=== PATIENT | female | born 1990 | race Caucasian/White ===

== ENCOUNTER 2017-08-06 08:30 | Emergency (ER) | payer SELFPAY ==
--- NOTE | 2017-08-06 10:32 | ER Document Report ---
ED General - General Mode of Arrival: Ambulatory Information source: Patient TRAVEL OUTSIDE OF THE [place] IN LAST 30 DAYS: No - General Chief Complaint: Shortness Of Breath Stated Complaint: BREATHING PROBLEMS Time Seen by Provider: 08/06/17 10:17 Notes: Patient is a 27 year old female with a history of pneumonia and bronchitis reports to the emergency department complaining of cough with yellow sputum, wheezing, and shortness of breath. Patient states she feels like she has pneumonia again due to her having pneumonia 3x and bronchitis 1x within the last year. Patient also complains of her lungs "burning" and her ribs "aching". (SHREYA BENITES) - Related Data Allergies/Adverse Reactions: No Known Allergies Allergy (Verified 08/06/17 08:32) Past Medical History - General Information source: Patient - Social History Smoking Status: Unknown if Ever Smoked Chew tobacco use (# tins/day): No Frequency of alcohol use: Occasional Drug Abuse: None Family History: Reviewed & Not Pertinent Patient has suicidal ideation: No Patient has homicidal ideation: No Pulmonary Medical History: Reports: Hx Bronchitis, Hx Pneumonia Renal/ Medical History: Denies: Hx Peritoneal Dialysis Past Surgical History: Reports: Hx Section. Denies: Hx Hysterectomy Review of Systems - Review of Systems Constitutional: No symptoms reported EENT: No symptoms reported Cardiovascular: No symptoms reported Respiratory: See HPI, Cough, Short of breath, Sputum Gastrointestinal: No symptoms reported Genitourinary: No symptoms reported Female Genitourinary: No symptoms reported Musculoskeletal: No symptoms reported Skin: No symptoms reported Hematologic/Lymphatic: No symptoms reported Neurological/Psychological: No symptoms reported -: Yes All other systems reviewed and negative Physical Exam - General General appearance: Appears well, Alert In distress: None - HEENT Head: Normocephalic, Atraumatic Pupils: PERRL - Respiratory Respiratory status: No respiratory distress Chest status: Nontender Breath sounds: Wheezing - end expiratory wheezing - Cardiovascular Rhythm: Regular Heart sounds: Normal auscultation Murmur: No Friction rub: No Gallop: None auscultated - Abdominal Inspection: Normal Distension: No distension Bowel sounds: Normal Tenderness: Nontender - Back Back: Normal - Extremities General upper extremity: Normal ROM General lower extremity: Normal ROM - Neurological Neuro grossly intact: Yes Cognition: Normal Orientation: AAOx4 Krypton Coma Scale Eye Opening: Spontaneous Janett Coma Scale Verbal: Oriented Krypton Coma Scale Motor: Obeys Commands Janett Coma Scale Total: 15 Speech: Normal - Psychological Associated symptoms: Normal affect, Normal mood - Skin Skin Temperature: Warm Skin Moisture: Dry Skin Color: Normal - Vital signs Vitals: Temp Pulse Resp BP Pulse Ox 98.6 F 90 18 126/83 H 97 08/06/17 08:37 08/06/17 08:37 08/06/17 08:37 08/06/17 08:37 08/06/17 08:37 Course - Re-evaluation Re-evalutation: 08/06/17 11:04 Patient found to have right lower lobe consolidation consistent with pneumonia. Will be placed on 5 days of Levaquin and provided albuterol puffer. Patient vitals stable no hypoxia or tachypnea. Will provide community care outpatient follow-up. Instructed patient return to the emergency department if any worsening of symptoms. (CLYDE SEYMOUR) - Vital Signs Vital signs: Temp Pulse Resp BP Pulse Ox 98.3 F 81 20 114/72 95 08/06/17 11:42 08/06/17 11:42 08/06/17 11:42 08/06/17 11:42 08/06/17 11:42 Discharge - Discharge Clinical Impression: Pneumonia Qualifiers: Pneumonia type: due to unspecified organism Laterality: right Lung location: lower lobe of lung Qualified Code(s): J18.1 - Lobar pneumonia, unspecified organism Disposition: HOME, SELF-CARE Instructions: Pneumonia ([facility]) Additional Instructions: Please take medications as instructed. Follow-up with community care in the next 2-3 days for reevaluation or sooner in the emergency department if symptoms are worsening. Please use albuterol puffer provided 2 puffs every 4 hours as needed Prescriptions: Levofloxacin [Levaquin 750 mg Tablet] 750 mg PO DAILY #5 tablet Forms: Return to Work Scribe Attestation: 08/07/17 23:08 I personally performed the services described documentation, reviewed and edited the documentation which was dictated to describe my presence, and it accurately records my words and actions. (CLYDE SEYMOUR) Scribe Documentation - Scribe Written by Scribe:: Destiny Chaudhry, 08/06/2017 10:45 acting as scribe for :: Tej
--- NOTE | 2017-08-06 10:50 | RADIOLOGY REPORT (SQ) ---
EXAM DESCRIPTION: CHEST PA/LAT COMPLETED DATE/TIME: 08/06/2017 10:34 am REASON FOR STUDY: cough/congestion COMPARISON: None. EXAM PARAMETERS: NUMBER OF VIEWS: two views TECHNIQUE: Digital Frontal and Lateral radiographic views of the chest acquired. RADIATION DOSE: NA LIMITATIONS: none FINDINGS: LUNGS AND PLEURA: Patchy airspace disease in the medial right lower lobe, atelectasis vers us pneumonia No left-sided focal infiltrates. No pleural effusion or pneumothorax MEDIASTINUM AND HILAR STRUCTURES: No masses or contour abnormalities. HEART AND VASCULAR STRUCTURES: Heart normal size. No evidence for failure. BONES: No acute findings. HARDWARE: None in the chest. OTHER: No other significant finding. IMPRESSION: Airspace disease in the medial right lower lobe, atelectasis versus pneumonia TECHNICAL DOCUMENTATION: JOB ID: [id number] [employer]- All Rights Reserved
[2017-08-06] MEDS ORDERED: ALBUTEROL SULFATE HFA (90 MCG/PUFF) 200 PUFF/8.5 GM MDI IH ONE (11:04)
[2017-08-06 11:43] VITALS: BP 114/72
== END 2017-08-06 11:43 | disposition home or self-care (01) ==
LOC: ER 08:30
DX: J18.1 Lobar pneumonia, unspecified organism (principal); R06.02 Shortness of breath; R05 Cough
CPT/HCPCS: 99284; 71046; J3490

== ENCOUNTER 2017-09-19 12:28 | Emergency (ER) | payer SELFPAY ==
[2017-09-19] MEDS ORDERED: ACETAMINOPHEN 325 MG TABLET PO ONE (12:50)
[2017-09-19] MEDS ORDERED: IPRATROPIUM/ALBUTEROL 0.5-2.5 MG/3 ML AMPUL NEB ONE (12:51)
[2017-09-19] MEDS ORDERED: KETOROLAC TROMETHAMINE 60 MG/2 ML SDV IM ONE (12:51)
--- NOTE | 2017-09-19 12:54 | ER Document Report ---
ED General - General Chief Complaint: Headache Stated Complaint: HEADACHE,VOMITING,WHEEZING Time Seen by Provider: 09/19/17 12:45 Mode of Arrival: Ambulatory Information source: Patient Notes: 27-year-old female history of asthma who states she gets pneumonia every 3-4 months presents with complaints of fever chills body aches headache wheezing productive of brown sputum. Patient notes symptoms have been going on for 3-4 days denies any diarrhea admits nausea or vomiting. Denies any sick contacts TRAVEL OUTSIDE OF THE [place] IN LAST 30 DAYS: No - HPI Onset: Other Onset/Duration: Persistent Quality of pain: Achy Severity: Mild Pain Level: 1 Associated symptoms: Body/muscle aches, Chills, Productive cough, Fever, Nausea , Vomiting, Shortness of breath, Sweating Exacerbated by: Denies Relieved by: Denies Similar symptoms previously: Yes Recently seen / treated by doctor: No - Related Data Allergies/Adverse Reactions: No Known Allergies Allergy (Verified 09/19/17 12:43) Past Medical History - Social History Smoking Status: Never Smoker Cigarette use (# per day): No Chew tobacco use (# tins/day): No Smoking Education Provided: No Frequency of alcohol use: Occasional Drug Abuse: None Family History: Reviewed & Not Pertinent Patient has suicidal ideation: No Patient has homicidal ideation: No Pulmonary Medical History: Reports: Hx Bronchitis, Hx Pneumonia Renal/ Medical History: Denies: Hx Peritoneal Dialysis Past Surgical History: Reports: Hx Section. Denies: Hx Hysterectomy Review of Systems - Review of Systems Notes: REVIEW OF SYSTEMS: CONSTITUTIONAL : Admits to fevers chills EENT: Denies eye, ear, throat, or mouth pain or symptoms. Denies nasal or sinus congestion or discharge. Denies throat, tongue, or mouth swelling or difficulty swallowing. CARDIOVASCULAR: Denies chest pain. Denies palpitations or racing or irregular heart beat. Denies ankle edema. RESPIRATORY: Admits to wheezing shortness breath. GASTROINTESTINAL: Admits to nausea vomiting GENITOURINARY: Denies difficulty urinating, painful urination, burning, frequency, blood in urine, or discharge. FEMALE GENITOURINARY: Denies vaginal bleeding, heavy or abnormal periods, irregular periods. Denies vaginal discharge or odor. MUSCULOSKELETAL: Admits to body aches SKIN: Denies rash, lesions or sores. HEMATOLOGIC : Denies easy bruising or bleeding. LYMPHATIC: Denies swollen, enlarged glands. NEUROLOGICAL: Denies confusion or altered mental status. Denies passing out or loss of consciousness. Denies dizziness or lightheadedness. Denies headache. Denies weakness or paralysis or loss of use of either side. Denies problems with gait or speech. Denies sensory loss, numbness, or tingling. Denies seizures. PSYCHIATRIC: Denies anxiety or stress. Denies depression, suicidal ideation, or homicidal ideation. ALL OTHER SYSTEMS REVIEWED AND NEGATIVE. PHYSICAL EXAMINATION: GENERAL: Well-appearing, well-nourished and in no acute distress. Febrile HEAD: Atraumatic, normocephalic. EYES: Pupils equal round and reactive to light, extraocular movements intact, conjunctiva are normal. ENT: Nares patent, oropharynx clear without exudates. Moist mucous membranes. NECK: Normal range of motion, supple without lymphadenopathy LUNGS: Faint end expiratory wheezing all throughout HEART: Regular rate and rhythm without murmurs ABDOMEN: Soft, nontender, nondistended abdomen. No guarding, no rebound. No masses appreciated. Female : deferred Musculoskeletal: Normal range of motion, no pitting or edema. No cyanosis. NEUROLOGICAL: Cranial nerves grossly intact. Normal speech, normal gait. Normal sensory, motor exams PSYCH: Normal mood, normal affect. SKIN: Warm, Dry, normal turgor, no rashes or lesions noted. Dictation was performed using [employer] voice recognition software Physical Exam - Vital signs Vitals: Temp Pulse Resp BP Pulse Ox 100.5 F H 109 H 16 135/87 H 94 09/19/17 12:35 09/19/17 12:35 09/19/17 12:35 09/19/17 12:35 09/19/17 12:35 Course - Re-evaluation Re-evalutation: 09/19/17 12:54 Patient has probable viral syndrome versus pneumonia, no signs of angitis full range of motion of neck no meningeal signs noted 09/19/17 15:58 Pneumonia was noted right lower lobe, similar to previous pneumonia as well, I will treat her with antibiotics given that she is febrile mildly tachycardic upon arrival after breathing treatment she notes she feels much better I will write for an inhaler for her for home. Otherwise patient looks well is in no distress Patient is noted to be tachycardic on discharge after breathing treatments were given After performing a Medical Screening Examination, I estimate there is LOW risk for ACUTE CORONARY SYNDROME, PULMONARY EMBOLI, RESPIRATORY FAILURE, SEPSIS OR MENINGITIS, thus I consider the discharge disposition reasonable. I have reevaluated this patient multiple times and no significant life threatening changes are noted. The patient and I have discussed the diagnosis and risks, and we agree with discharging home with close follow-up. We also discussed returning to the Emergency Department immediately if new or worsening symptoms occur. We have discussed the symptoms which are most concerning (e.g., changing or worsening pain, trouble swallowing or breathing, neck stiffness, fever) that necessitate immediate return. - Vital Signs Vital signs: Temp Pulse Resp BP Pulse Ox 99.8 F 109 H 19 133/71 H 100 09/19/17 13:48 09/19/17 13:48 09/19/17 13:48 09/19/17 13:48 09/19/17 13:48 - Diagnostic Test Radiology reviewed: Image reviewed, Reports reviewed - Right lower lobe pneumonia Discharge - Discharge Clinical Impression: RLL pneumonia Qualifiers: Pneumonia type: due to unspecified organism Qualified Code(s): J18.1 - Lobar pneumonia, unspecified organism Asthma exacerbation Qualifiers: Asthma severity: mild Asthma persistence: intermittent Qualified Code(s): J45.21 - Mild intermittent asthma with (acute) exacerbation Condition: Stable Disposition: HOME, SELF-CARE Instructions: Pneumonia ([facility]) Prescriptions: Albuterol Sulfate [Proair HFA Inhalation Aerosol 8.5 gm MDI] 2 puff IH Q4H PRN # 1 mdi PRN Reason: Doxycycline Hyclate 100 mg PO BID #14 capsule Forms: Return to Work Referrals: DAINA AKERS MD [ACTIVE STAFF] - Follow up tomorrow
--- NOTE | 2017-09-19 13:25 | RADIOLOGY REPORT (SQ) ---
EXAM DESCRIPTION: CHEST PA/LAT COMPLETED DATE/TIME: 09/19/2017 1:07 pm REASON FOR STUDY: fever cough , wheezing asthma COMPARISON: 08/06/2017 EXAM PARAMETERS: NUMBER OF VIEWS: two views TECHNIQUE: Digital Frontal and Lateral radiographic views of the chest acquired. RADIATION DOSE: NA LIMITATIONS: none FINDINGS: LUNGS AND PLEURA: There is increased opacification in the medial aspect the right lower lo be compared to the earlier study. MEDIASTINUM AND HILAR STRUCTURES: No masses or contour abnormalities. HEART AND VASCULAR STRUCTURES: Heart normal size. No evidence for failure. BONES: No acute findings. HARDWARE: None in the chest. OTHER: No other significant finding. IMPRESSION: Right lower lobe pneumonia. TECHNICAL DOCUMENTATION: JOB ID: [id number] [employer]- All Rights Reserved Reading location - IP/workstation name: [email or web address]
[2017-09-19 13:50] VITALS: BP 133/71
== END 2017-09-19 13:48 | disposition home or self-care (01) ==
LOC: ER 12:28
DX: J18.1 Lobar pneumonia, unspecified organism (principal); J45.21 Mild intermittent asthma with (acute) exacerbation; R51 Headache; R11.2 Nausea with vomiting, unspecified; R50.9 Fever, unspecified
CPT/HCPCS: 94640; 99284; 96372; 71046; J1885; J7620

== ENCOUNTER 2017-09-24 14:35 | Emergency (ER) | payer SELFPAY ==
[2017-09-24] MEDS ORDERED: IPRATROPIUM/ALBUTEROL 0.5-2.5 MG/3 ML AMPUL NEB ONE (15:08)
[2017-09-24] MEDS ORDERED: ONDANSETRON 4 MG TAB.RAPDIS PO ONE (15:08)
--- NOTE | 2017-09-24 15:09 | ER Document Report ---
ED Medical Screen (RME) - General Chief Complaint: Vomiting Stated Complaint: VOMITING Time Seen by Provider: 09/24/17 15:01 Mode of Arrival: Ambulatory Information source: Patient Notes: This is a 27-year-old female with a history of bronchitis, recent diagnosis of pneumonia presents to the emergency room with some nausea and vomiting and persistent cough. She has been on doxycycline for the past 4-5 days. TRAVEL OUTSIDE OF THE [place] IN LAST 30 DAYS: No - HPI Onset: Just prior to arrival Onset/Duration: Gradual Quality of pain: No pain Severity: None Pain Level: Denies Associated Symptoms: Chills, Cough (nonproductive), Fever Exacerbated by: Denies Relieved by: Denies Similar symptoms previously: Yes Recently seen / treated by doctor: Yes - Related Data Smoking: Cigarettes Frequency of alcohol use: None Drug Abuse: None Allergies/Adverse Reactions: No Known Allergies Allergy (Verified 09/24/17 14:37) Past Medical History - General Information source: Patient - Social History Cigarette use (# per day): No Chew tobacco use (# tins/day): No Frequency of alcohol use: None Drug Abuse: None Lives with: Family Family history: None - Medical History Medical History: Negative Pulmonary Medical History: Reports: Hx Bronchitis, Hx Pneumonia - chronic Renal/ Medical History: Denies: Hx Peritoneal Dialysis Past Surgical History: Reports: Hx Section. Denies: Hx Hysterectomy Review of Systems - Review of Systems Constitutional: Chills, Fever EENT: No symptoms reported Cardiovascular: No symptoms reported Respiratory: See HPI Gastrointestinal: No symptoms reported Genitourinary: No symptoms reported Female Genitourinary: No symptoms reported Musculoskeletal: No symptoms reported Skin: No symptoms reported Hematologic/Lymphatic: No symptoms reported Neurological/Psychological: No symptoms reported Physical Exam - Vital signs Vitals: Temp Pulse Resp BP Pulse Ox 99.0 F 97 16 139/97 H 95 09/24/17 14:43 09/24/17 14:43 09/24/17 14:43 09/24/17 14:43 09/24/17 14:43 Notes: Physical exam: GENERAL: 27-year-old female, alert and oriented 3, no acute distress HEAD: Atraumatic, normocephalic. EYES: Pupils equal round and reactive to light, extraocular movements intact, sclera anicteric, conjunctiva are normal. ENT: TMs normal, nares patent, oropharynx clear without exudates. Moist mucous membranes. NECK: Normal range of motion, supple without obvious mass or JVD. LUNGS: Breath sounds clear to auscultation bilaterally and equal. No wheezes rales or rhonchi. HEART: Regular rate and rhythm without murmurs, rubs or gallops. ABDOMEN: Soft, normoactive bowel sounds. No tenderness to palpation. No guarding, no rebound. No masses appreciated. EXTREMITIES: Normal range of motion, no pitting or edema. No clubbing or cyanosis. NEUROLOGICAL: Cranial nerves II through XII grossly intact. Normal speech, moving all extremities. PSYCH: Normal mood, normal affect. SKIN: Warm, Dry, normal turgor, no rashes or lesions noted. Course - Re-evaluation Re-evalutation: 09/24/17 16:58 Note: Patient was given a nebulizer treatment and feels very comfortable at this time. Her oxygen saturation at this time is 97% on room air and she has no difficulty with ambulating around the ER. The chest x-ray shows no worsening and I explained to her that it may take a while before it clears but she should have a follow-up chest x-ray. I have advised her to continue the antibiotic prescribed (doxycycline), take Zofran for nausea and Mucinex. I have advised [facility] and I have given her the contact number. - Vital Signs Vital signs: Temp Pulse Resp BP Pulse Ox 98.7 F 88 20 130/87 H 96 09/24/17 16:53 09/24/17 16:53 09/24/17 16:53 09/24/17 16:53 09/24/17 16:53 - Diagnostic Test Radiology reviewed: Image reviewed, Reports reviewed - Chest x-ray shows residual pneumonia (no worse). Doctor's Discharge - Discharge Clinical Impression: Pneumonia resolving Condition: Stable Disposition: HOME, SELF-CARE Additional Instructions: Thank you for choosing [facility] for your care. The examination and treatment you have received in the Emergency Department today has been rendered on an emergency basis only and is not intended to be a substitute for complete medical care. You should contact your doctor as it is important that she/he examine you for any new or remaining problems. If given a copy of any lab tests or radiology reports, please bring them with you when you see your physician. If your problem worsens or new symptoms appear and you are unable to arrange prompt follow-up care, return to the Emergency Department. Specific signs to look out for: Worsening shortness of breath, worsening cough, persistent fever or any concerns or getting worse Any other instructions: Rest, drink plenty of fluids, take Zofran for nausea. Take Mucinex (guaifenesin) daily for the next few days to loosen up the secretions. Continue the antibiotics as prescribed. Continue the inhalers as needed. Primary Care Doctor's affiliated with [facility]: If you do not have a primary care doctor or you are unable to get an appointment during that time, you can try one of the doctor's below. These are internal medicine doctor's that have admitting priveledges to the hospital ( they will see you both in the office as well as in this hospital if you are ever hospitalized here). follow-up at the [facility] which is a free clinic. [address], [place] [address] Forms: Return to Work
--- NOTE | 2017-09-24 15:40 | RADIOLOGY REPORT (SQ) ---
EXAM DESCRIPTION: CHEST PA/LAT COMPLETED DATE/TIME: 09/24/2017 3:30 pm REASON FOR STUDY: cough COMPARISON: 09/19/2017 EXAM PARAMETERS: NUMBER OF VIEWS: two views TECHNIQUE: Digital Frontal and Lateral radiographic views of the chest acquired. RADIATION DOSE: NA LIMITATIONS: none FINDINGS: LUNGS AND PLEURA: Once again a right lower lobe pneumonia is present. There is slight imp rovement since the earlier study, but there is residual infiltrate. MEDIASTINUM AND HILAR STRUCTURES: No masses or contour abnormalities. HEART AND VASCULAR STRUCTURES: Heart normal size. No evidence for failure. BONES: No acute findings. HARDWARE: None in the chest. OTHER: No other significant finding. IMPRESSION: Residual right lower lobe pneumonia. TECHNICAL DOCUMENTATION: JOB ID: [id number] [employer]- All Rights Reserved Reading location - IP/workstation name: [email or web address]
[2017-09-24] MEDS ORDERED: ONDANSETRON ODT 4 MG TAB (6 TAB/ER DISP) PO PRN (16:48)
[2017-09-24 16:56] VITALS: BP 130/87
== END 2017-09-24 16:55 | disposition home or self-care (01) ==
LOC: ER 14:35
DX: J18.9 Pneumonia, unspecified organism (principal); R11.2 Nausea with vomiting, unspecified; R05 Cough; R50.9 Fever, unspecified
CPT/HCPCS: 94640; 99284; 71046; S0119; J7620

== ENCOUNTER 2017-10-03 03:35 | Inpatient (IN) | payer SELFPAY ==
[2017-10-03] MEDS ORDERED: ONDANSETRON HCL INJ/PF 4 MG/2 ML SDV IV ONE (04:24)
[2017-10-03] MEDS ORDERED: NORMAL SALINE 1000 ML 1,000 ML IV ONE (04:24)
[2017-10-03] MEDS ORDERED: KETOROLAC TROMETHAMINE INJ/PF 30 MG/1 ML SDV IV ONE (04:24)
--- NOTE | 2017-10-03 04:28 | ER Document Report ---
ED General - General Chief Complaint: Rib Pain Stated Complaint: COUGH Time Seen by Provider: 10/03/17 04:13 Notes: Patient is a 27-year-old female that comes emergency department for chief complaint of cough, chills, congestion, and she is also developed nausea and vomiting over the past 2 days. She states she is coughing up greenish yellowish sputum. She states that last Saturday she had completed a course of antibiotics (doxycycline), she states that she has asthma, she states that she gets repeated pneumonia and keeps getting over the past 3 years. This is her third visit this month for pneumonia. She states she completed antibiotic before the doxycycline but she cannot remember what it is exactly. She denies smoking, she denies any daily medications, she denies any surgeries except for C -section. LMP within the past month. TRAVEL OUTSIDE OF THE [place] IN LAST 30 DAYS: No - Related Data Allergies/Adverse Reactions: No Known Allergies Allergy (Verified 10/03/17 03:36) Past Medical History - General Information source: Patient - Social History Smoking Status: Never Smoker Frequency of alcohol use: None Drug Abuse: None Lives with: Family Family History: Reviewed & Not Pertinent Pulmonary Medical History: Reports: Hx Bronchitis, Hx Pneumonia Renal/ Medical History: Denies: Hx Peritoneal Dialysis Past Surgical History: Reports: Hx Section. Denies: Hx Hysterectomy - Immunizations Immunizations up to date: Yes Hx Diphtheria, Pertussis, Tetanus Vaccination: Yes Review of Systems - Review of Systems Constitutional: No symptoms reported EENT: No symptoms reported Cardiovascular: No symptoms reported Respiratory: No symptoms reported Gastrointestinal: No symptoms reported Genitourinary: No symptoms reported Female Genitourinary: No symptoms reported Musculoskeletal: No symptoms reported Skin: No symptoms reported Hematologic/Lymphatic: No symptoms reported Neurological/Psychological: No symptoms reported Physical Exam - Vital signs Vitals: Temp Pulse Resp BP Pulse Ox 98.6 F 110 H 20 129/73 H 97 10/03/17 03:42 10/03/17 03:42 10/03/17 03:42 10/03/17 03:42 10/03/17 03:42 - General General appearance: Appears well, Anxious In distress: None - HEENT Head: Normocephalic, Atraumatic Eyes: Normal Conjunctiva: Normal Extraocular movements intact: Yes Eyelashes: Normal Pupils: PERRL Mouth/Lips: Normal Mucous membranes: Normal Pharynx: Normal Neck: Normal - Respiratory Respiratory status: No respiratory distress Breath sounds: Nonproductive cough - Occasional mild nonproductive cough - Cardiovascular Rhythm: Regular, Tachycardia Heart sounds: Normal auscultation, S1 appreciated, S2 appreciated - Abdominal Tenderness: Tender - Mild generalized abdominal tenderness, nonspecific, no guarding - Back Back: Tender - Tenderness over the right general CVA area, otherwise unremarkable back exam with no midline tenderness or saddle anesthesia - Extremities General upper extremity: Normal inspection, Nontender, Normal ROM, Normal strength General lower extremity: Normal inspection, Nontender, Normal ROM, Normal strength. No: Edema - Neurological Neuro grossly intact: Yes Cognition: Normal Orientation: AAOx4 [place] Coma Scale Eye Opening: Spontaneous [place] Coma Scale Verbal: Oriented [place] Coma Scale Motor: Obeys Commands Jan[place] Coma Scale Total: 15 Speech: Normal Motor strength normal: LUE, RUE, LLE, RLE Sensory: Normal - Psychological Associated symptoms: Normal affect, Normal mood - Skin Skin Temperature: Warm Skin Moisture: Dry Skin Color: Normal Course - Re-evaluation Re-evalutation: Patient is in no distress on exam. Very occasional mild nonproductive cough, clear lungs, no tachypnea. She is borderline tachycardic on my exam. She will speak breathing very heavily and quietly and then suddenly breathe normally and talking loudly for an extended duration. Records reviewed and patient also has had repeated visits this month for ongoing pneumonia. She has had 4 x-rays this year with the same right sided pneumonia. She has most recently completed a course of doxycycline. CBC shows leukocytosis with elevation of neutrophils but no bandemia. Blood cultures have been sent. Chemistry unremarkable. test negative. Urine with some white blood cells but no nitrites, contaminated sample. Abdomen is soft and benign on exam. 10/03/17 CAT scan does show and confirm right middle lobe pneumonia. Patient has completed Levaquin and doxycycline outpatient. She has failed outpatient management. Discussed with patient, recommendation at this time will be to be admitted to the hospital for IV antibiotics, obtain blood cultures, obtain sputum cultures. Patient is very agreeable with this plan. She is clinically nontoxic, her vital signs are stable. I spoke with Dr. Casas, patient will be admitted to the medical floor. - Vital Signs Vital signs: Temp Pulse Resp BP Pulse Ox 98.6 F 110 H 20 114/73 97 03/29/18 03:42 10/03/17 03:42 10/03/17 07:01 10/03/17 07:00 10/03/17 07:01 - Laboratory Result Diagrams: 10/03/17 05:20 10/03/17 05:20 Laboratory results interpreted by me: 10/03/17 10/03/17 05:20 06:18 WBC 20.9 H RDW 14.8 H Abs Neuts (Manual) 15.9 H Urine Protein 30 H Ur Leukocyte Esterase LARGE H Discharge - Discharge Clinical Impression: Productive cough Pneumonia Qualifiers: Pneumonia type: due to unspecified organism Laterality: right Lung location: middle lobe of lung Qualified Code(s): J18.1 - Lobar pneumonia, unspecified organism Leukocytosis Qualifiers: Leukocytosis type: unspecified Qualified Code(s): D72.829 - Elevated white blood cell count, unspecified Condition: Stable Disposition: ADMITTED INPATIENT Admitting Provider: Hospitalist Unit Admitted: Medical Floor
--- NOTE | 2017-10-03 04:50 | RADIOLOGY REPORT (SQ) ---
EXAM DESCRIPTION: CHEST PA/LAT CLINICAL HISTORY: 27 years, Female, productive cough COMPARISON: 3..18. 08/06/2017, report only. NUMBER OF VIEWS: 2 LIMITATIONS: None. FINDINGS: Moderate patchiness of the right lower lobe similar to appearance on prior exam, 09/24/2017 accounting for technical variance, normal cardiac silhouette, and intact bony thorax. IMPRESSION: Moderate right lower lobar pneumonia. Consider CR surveillance including at 7-12 weeks following initiation of clinically warranted therapy.
[2017-10-03 05:47] LABS: HEMATOCRIT 38.8 % (36.0-47.0); HEMOGLOBIN 12.9 g/dL (12.0-15.5); MEAN CORPUSCULAR HEMOGLOBIN 27.4 pg (27.0-33.4); MEAN CORPUSCULAR HGB CONC 33.3 g/dL (32.0-36.0); MEAN CORPUSCULAR VOLUME 82 fl (80-97); PLATELET COUNT 441 10^3/uL (150-450); RED BLOOD COUNT 4.72 10^6/uL (3.72-5.28); RED CELL DISTRIBUTION WIDTH 14.8 % (11.5-14.0); WHITE BLOOD COUNT 20.9 10^3/uL (4.0-10.5)
[2017-10-03 05:58] LABS: ALANINE AMINOTRANSFERASE 27 U/L (9-52); ALKALINE PHOSPHATASE 96 U/L (38-126); ANION GAP 12 (5-19); ASPARTATE AMINO TRANSFERASE 16 U/L (14-36); BILIRUBIN,DIRECT 0.2 mg/dL (0.0-0.4); BILIRUBIN,TOTAL 0.4 mg/dL (0.2-1.3); BLOOD UREA NITROGEN 11 mg/dL (7-20); CALCIUM 9.5 mg/dL (8.4-10.2); CARBON DIOXIDE 24 mmol/L (22-30); CHLORIDE 102 mmol/L (98-107); GLUCOSE 105 mg/dL (75-110); POTASSIUM 4.5 mmol/L (3.6-5.0); SODIUM 137.5 mmol/L (137-145); TOTAL PROTEIN 7.4 g/dL (6.3-8.2)
[2017-10-03 06:27] LABS: ABSOLUTE LYMPHOCYTES# (MANUAL) 3.6 10^3/uL (0.5-4.7); ABSOLUTE MONOCYTES # (MANUAL) 1.3 10^3/uL (0.1-1.4); ABSOLUTE NEUTROPHILS# (MANUAL) 15.9 10^3/uL (1.7-8.2); BASOPHILS % (MANUAL) 0 % (0-2); EOSINOPHILS % (MANUAL) 1 % (0-6); LYMPHOCYTES % (MANUAL) 17 % (13-45); MONOCYTES % (MANUAL) 6 % (3-13); SEGMENTED NEUTROPHILS % (MAN) 76 % (42-78); TOTAL CELLS COUNTED 100
[2017-10-03 06:29] LABS: ANISOCYTOSIS SLIGHT; PLATELET COMMENT ADEQUATE; POLYCHROMASIA SLIGHT; TOXIC GRANULATION 2+
[2017-10-03 06:51] LABS: APPEARANCE,URINE CLEAR; BILIRUBIN,URINE NEGATIVE (NEGATIVE); COLOR,URINE YELLOW; GLUCOSE, URINE NEGATIVE (NEGATIVE); KETONES,URINE NEGATIVE (NEGATIVE); PROTEIN,URINE 30 mg/dL (NEGATIVE); URINE SPECIFIC GRAVITY 1.021
[2017-10-03 06:52] LABS: LEUKOCYTE ESTERASE,URINE LARGE (NEGATIVE); NITRITE,URINE NEGATIVE (NEGATIVE); UROBILINOGEN,URINE NEGATIVE mg/dL (<2.0)
--- NOTE | 2017-10-03 07:18 | RADIOLOGY REPORT (SQ) ---
EXAM DESCRIPTION: CT CHEST WITH CLINICAL HISTORY: 27 years Female, evaluate persistent area of possible pneumonia COMPARISON: CR, same day, 09/24/2017. TECHNIQUE: IV contrast contrast. Coronal and sagittal reformat. This exam was performed according to our departmental dose-optimization program, which includes automated exposure control, adjustment of the mA and/or kV according to patient size and/or use of iterative reconstruction technique. FINDINGS: Moderate consolidation of the right lower lobe. Mild increased reticular markings of the right upper lobe. Minimal lingular streakiness. Mild mediastinal lymphadenopathy includes a 1.1 cm pretracheal lymph node. Nondisplaced desiccation. Inferior neck, axillae, mediastinum, lungs, airway, lymphatics, heart, vasculature, upper abdomen, and musculoskeleton appear otherwise unremarkable. Impression: Right lower lobar pneumonia. Recommend CR/CT surveillance including at 7-12 weeks following initiation of clinically warranted therapy.
[2017-10-03] MEDS ORDERED: CEFEPIME 2 GM/D5W RTU 2 GM/50 ML RTUPB IV ONE (07:21)
[2017-10-03] MEDS ORDERED: VANCOMYCIN HCL INJ 1000 MG VIAL IV ONE (07:30)
[2017-10-03] MEDS ORDERED: HYDRALAZINE HCL INJ/PF 20 MG/1 ML SDV IV PRN (08:38)
[2017-10-03] MEDS ORDERED: CEFEPIME 2 GM/D5W RTU 2 GM/50 ML RTUPB IV SCH (10:00)
[2017-10-03] MEDS: MORPHINE SULFATE 10 MG/ML INJ IV PRN ×3 (13:13→21:28)
[2017-10-03] MEDS ORDERED: INFLUENZA ADLT QUAD (36MOS+) 2017-18 VAC 0.5 ML SYR IM PRN (15:04)
[2017-10-03] MEDS: VANCOMYCIN HCL 1,500 MG in DEXTROSE 5%-WATER 250 ML IV SCH ×2 (15:39→20:25)
[2017-10-03] MEDS: IPRATROPIUM/ALBUTEROL 0.5-2.5 MG/3 ML AMPUL NEB PRN ×2 (17:23→22:41)
[2017-10-03] MEDS: ACETAMINOPHEN 325 MG TABLET PO PRN (20:26)
[2017-10-03] MEDS: NORMAL SALINE 1000 ML 1,000 ML IV PRN (20:27)
[2017-10-03] MEDS: CEFEPIME 2 GM/D5W RTU 2 GM/50 ML RTUPB IV SCH (22:11)
[2017-10-04] MEDS: VANCOMYCIN HCL 1,500 MG in DEXTROSE 5%-WATER 250 ML IV SCH ×2 (03:29→09:48)
[2017-10-04 07:09] LABS: HEMATOCRIT 35.3 % (36.0-47.0); HEMOGLOBIN 11.8 g/dL (12.0-15.5); MEAN CORPUSCULAR HEMOGLOBIN 27.4 pg (27.0-33.4); MEAN CORPUSCULAR HGB CONC 33.4 g/dL (32.0-36.0); MEAN CORPUSCULAR VOLUME 82 fl (80-97); PLATELET COUNT 402 10^3/uL (150-450); RED BLOOD COUNT 4.31 10^6/uL (3.72-5.28); RED CELL DISTRIBUTION WIDTH 14.3 % (11.5-14.0); WHITE BLOOD COUNT 20.7 10^3/uL (4.0-10.5)
[2017-10-04 07:17] LABS: ALBUMIN 3.4 g/dL (3.5-5.0); ANION GAP 11 (5-19); BLOOD UREA NITROGEN 9 mg/dL (7-20); CALCIUM 9.3 mg/dL (8.4-10.2); CARBON DIOXIDE 22 mmol/L (22-30); CHLORIDE 103 mmol/L (98-107); GLUCOSE 131 mg/dL (75-110); POTASSIUM 4.2 mmol/L (3.6-5.0); SODIUM 136.3 mmol/L (137-145)
[2017-10-04] MEDS: ACETAMINOPHEN 325 MG TABLET PO PRN (07:42)
[2017-10-04] MEDS ORDERED: VANCOMYCIN HCL INJ 1000 MG VIAL IV SCH (10:00)
[2017-10-04 10:46] LABS: VANCOMYCIN,TROUGH 9.2 ug/mL (5.0-20.0)
[2017-10-04] MEDS: IPRATROPIUM/ALBUTEROL 0.5-2.5 MG/3 ML AMPUL NEB PRN ×2 (11:32→23:18)
[2017-10-04] MEDS: CEFEPIME 2 GM/D5W RTU 2 GM/50 ML RTUPB IV SCH ×2 (11:53→21:04)
[2017-10-04] MEDS ORDERED: LINEZOLID 600 MG RTU 300 ML IV ONE (12:00)
[2017-10-04] MEDS: OXYCODONE HCL IR 5 MG TABLET PO PRN ×2 (17:03→23:06)
[2017-10-04] MEDS: LEVOFLOXACIN 750 MG/D5W RTU 750 MG/150 ML RTUPB IV SCH (17:13)
--- NOTE | 2017-10-04 20:52 | PDOC PROGRESS REPORT ---
Subjective Progress Note for:: 10/04/17 Subjective:: 27-year-old with reoccurring pneumonia or unresolving pneumonia in the outpatient setting. Continued elevated leukocytosis. Will add levaquin IV. Agree with pharmacy and changing vancomycin to linezolid given patient's inability to achieve an appropriate vancomycin level. Clinically she has significantly improved. Sitting up in bed and conversant. Breathing comfortably on room air. However given her history of chronic recurring pneumonias in her past will continue IV treatment at present. Anticipate patient will benefit from multiple days of IV antibiotics before transitioning to p.o. therapy. Reason For Visit: RIGHT LOWER LOBE PNEUMONIA Physical Exam Vital Signs: Temp Pulse Resp BP Pulse Ox 98.3 F 105 H 16 129/80 H 96 10/04/17 14:52 10/04/17 14:52 10/04/17 14:52 10/04/17 14:52 10/04/17 14:52 Intake & Output 10/03/17 10/04/17 10/05/17 06:59 06:59 06:59 Intake Total 1000 2940 Balance 1000 2940 Weight 155.3 kg General appearance: PRESENT: no acute distress, cooperative Head exam: PRESENT: atraumatic, normocephalic Eye exam: PRESENT: EOMI, PERRLA Mouth exam: PRESENT: moist, neck supple Neck exam: PRESENT: full ROM. ABSENT: JVD, thyromegaly Respiratory exam: PRESENT: crackles, decreased breath sounds. ABSENT: accessory muscle use, rhonchi, wheezes Pulses: PRESENT: normal radial pulses, normal dorsalis pedis pul Vascular exam: PRESENT: normal capillary refill. ABSENT: pallor GI/Abdominal exam: PRESENT: soft. ABSENT: ascites, distended, firm, mass, rigid Extremities exam: ABSENT: calf tenderness, joint swelling Musculoskeletal exam: PRESENT: ambulatory, full ROM Neurological exam: PRESENT: alert, oriented to person, oriented to place, oriented to time, oriented to situation, CN II-XII grossly intact Psychiatric exam: ABSENT: agitated, anxious, manic Focused psych exam: ABSENT: delusional, paranoid Skin exam: ABSENT: abrasion, cyanosis, dry Results Laboratory Results: 10/04/17 06:38 10/04/17 06:38 10/04/17 10/04/17 06:38 06:38 WBC 20.7 H RBC 4.31 Hgb 11.8 L Hct 35.3 L MCV 82 MCH 27.4 MCHC 33.4 RDW 14.3 H Plt Count 402 Sodium 136.3 L Potassium 4.2 Chloride 103 Carbon Dioxide 22 Anion Gap 11 BUN 9 Creatinine 0.56 Est GFR ( Amer) > 60 Est GFR (Non-Af Amer) > 60 Glucose 131 H Calcium 9.3 Phosphorus 4.0 Albumin 3.4 L Impressions: Chest X-Ray 10/03/17 04:25 IMPRESSION: Moderate right lower lobar pneumonia. Consider CR surveillance including at 7-12 weeks following initiation of clinically warranted therapy. Assessment & Plan - Diagnosis (1) Pneumonia Qualifiers: Pneumonia type: due to unspecified organism Laterality: right Lung location: middle lobe of lung Qualified Code(s): J18.1 - Lobar pneumonia, unspecified organism Is this a current diagnosis for this admission?: Yes Plan: No growth on cultures at present. Poor vancomycin level, agree with pharmacy to change to linezolid continue cefepime, add levaquin. persisting high WBC, no loose stooling. (2) Asthma Is this a current diagnosis for this admission?: Yes Plan: Continue as needed neb therapy for asthma. No significant wheezing appreciated on examination today. (3) Leukocytosis Qualifiers: Leukocytosis type: unspecified Qualified Code(s): D72.829 - Elevated white blood cell count, unspecified Is this a current diagnosis for this admission?: Yes Plan: persistent leukocytosis today. Continue IV antibiotics as previously stated.
[2017-10-04] MEDS: NORMAL SALINE 1000 ML 1,000 ML IV PRN (20:56)
[2017-10-04] MEDS: LINEZOLID 600 MG RTU 300 ML IV SCH (21:50)
[2017-10-05] MEDS: MORPHINE SULFATE 10 MG/ML INJ IV PRN (00:37)
[2017-10-05 07:00] LABS: HEMATOCRIT 34.9 % (36.0-47.0); HEMOGLOBIN 11.4 g/dL (12.0-15.5); MEAN CORPUSCULAR HEMOGLOBIN 26.9 pg (27.0-33.4); MEAN CORPUSCULAR HGB CONC 32.8 g/dL (32.0-36.0); MEAN CORPUSCULAR VOLUME 82 fl (80-97); PLATELET COUNT 417 10^3/uL (150-450); RED BLOOD COUNT 4.25 10^6/uL (3.72-5.28); RED CELL DISTRIBUTION WIDTH 14.9 % (11.5-14.0); WHITE BLOOD COUNT 18.9 10^3/uL (4.0-10.5)
[2017-10-05 07:19] LABS: ALBUMIN 3.3 g/dL (3.5-5.0); ANION GAP 10 (5-19); BLOOD UREA NITROGEN 9 mg/dL (7-20); CALCIUM 8.8 mg/dL (8.4-10.2); CARBON DIOXIDE 23 mmol/L (22-30); CHLORIDE 102 mmol/L (98-107); GLUCOSE 131 mg/dL (75-110); PHOSPHORUS 4.2 mg/dL (2.5-4.5); POTASSIUM 4.2 mmol/L (3.6-5.0); SODIUM 135.1 mmol/L (137-145)
[2017-10-05] MEDS: CEFEPIME 2 GM/D5W RTU 2 GM/50 ML RTUPB IV SCH ×2 (09:15→21:58)
[2017-10-05] MEDS: GUAIFENESIN SYRP 200 MG/10 ML UDC PO PRN (09:15)
[2017-10-05] MEDS: NORMAL SALINE 1000 ML 1,000 ML IV PRN (09:15)
[2017-10-05] MEDS: LINEZOLID 600 MG RTU 300 ML IV SCH ×2 (09:16→22:59)
[2017-10-05] MEDS: LEVOFLOXACIN 750 MG/D5W RTU 750 MG/150 ML RTUPB IV SCH (15:08)
--- NOTE | 2017-10-05 16:05 | PDOC PROGRESS REPORT ---
Subjective Progress Note for:: 10/05/17 Subjective:: 27-year-old female with history of multiple recent outpatient pneumonia treatment failures, and history of asthma. Patient with persistent leukocytosis and mild tachycardia. Continued on broad-spectrum antibiotics. Clinically she looks significantly improved. Would intentionally prolong her IV treatment to a minimum of 4 days given her significant history of poor outpatient performance on p.o. antibiotics and lack of recent recovery. Gram- positive cocci in clusters noted on sputum culture growth, further results pending. Reason For Visit: RIGHT LOWER LOBE PNEUMONIA Physical Exam Vital Signs: Temp Pulse Resp BP Pulse Ox 98.0 F 92 16 120/73 95 10/05/17 12:26 10/05/17 12:26 10/05/17 12:26 10/05/17 12:26 10/05/17 12:26 Intake & Output 10/04/17 10/05/17 10/06/17 06:59 06:59 06:59 Intake Total 1000 5140 1000 Balance 1000 5140 1000 Weight 155.3 kg 160.5 kg General appearance: PRESENT: no acute distress, cooperative, but appears confused Head exam: PRESENT: atraumatic, normocephalic Eye exam: PRESENT: EOMI, PERRLA Mouth exam: PRESENT: moist, neck supple Neck exam: PRESENT: full ROM. ABSENT: JVD, thyromegaly Respiratory exam: PRESENT: crackles, decreased breath sounds in lower right lobe. ABSENT: accessory muscle use, rhonchi, wheezes Pulses: PRESENT: normal radial pulses, normal dorsalis pedis pul Vascular exam: PRESENT: normal capillary refill. ABSENT: pallor GI/Abdominal exam: PRESENT: soft. ABSENT: ascites, distended, firm, mass, rigid Extremities exam: ABSENT: calf tenderness, joint swelling Musculoskeletal exam: PRESENT: ambulatory, full ROM Neurological exam: PRESENT: alert, oriented to person, oriented to place, oriented to time, oriented to situation, CN II-XII grossly intact Psychiatric exam: ABSENT: agitated, anxious, manic Focused psych exam: ABSENT: delusional, paranoid Skin exam: ABSENT: abrasion, cyanosis, dry Results Laboratory Results: 10/05/17 06:47 10/05/17 06:47 10/05/17 10/05/17 06:47 06:47 WBC 18.9 H RBC 4.25 Hgb 11.4 L Hct 34.9 L MCV 82 MCH 26.9 L MCHC 32.8 RDW 14.9 H Plt Count 417 Sodium 135.1 L Potassium 4.2 Chloride 102 Carbon Dioxide 23 Anion Gap 10 BUN 9 Creatinine 0.54 Est GFR ( Amer) > 60 Est GFR (Non-Af Amer) > 60 Glucose 131 H Calcium 8.8 Phosphorus 4.2 Albumin 3.3 L Impressions: Chest X-Ray 10/03/17 04:25 IMPRESSION: Moderate right lower lobar pneumonia. Consider CR surveillance including at 7-12 weeks following initiation of clinically warranted therapy. Assessment & Plan - Diagnosis (1) Pneumonia Qualifiers: Pneumonia type: due to unspecified organism Laterality: right Lung location: middle lobe of lung Qualified Code(s): J18.1 - Lobar pneumonia, unspecified organism Is this a current diagnosis for this admission?: Yes Plan: Continue broad-spectrum coverage including cefepime, vancomycin, Levaquin. Just antibiotics with culture results. Cultures 2 no growth. Sputum culture growing gram-positive cocci in clusters. Likely patient has improved. Is now on room air. (2) Asthma Is this a current diagnosis for this admission?: Yes Plan: No significant wheezing on exam. Continue Duoneb therapy access q4h prn. appears comfortable on room air. (3) Leukocytosis Qualifiers: Leukocytosis type: unspecified Qualified Code(s): D72.829 - Elevated white blood cell count, unspecified Is this a current diagnosis for this admission?: Yes Plan: Mild improvement. Continue broad spectrum antibiotics. no steroids at present. Monitor culture results. (4) Super obesity Is this a current diagnosis for this admission?: Yes Plan: Has BMI > 50, encouraged to have caloric reduction - Time Time Spent with patient: 15-24 minutes - Inpatient Certification Based on my medical assessment, after consideration of the patient's comorbidities, presenting symptoms, or acuity I expect that the services needed warrant INPATIENT care.: Yes Medical Necessity: Failure to Improve With Outpatient Therapy, Need for IV Antibiotics, Risk of Complication if Not Cared For in Hospital
[2017-10-05] MEDS: ACETAMINOPHEN 325 MG TABLET PO PRN (18:05)
[2017-10-06] MEDS: MORPHINE SULFATE 10 MG/ML INJ IV PRN (03:10)
[2017-10-06] MEDS: NORMAL SALINE 1000 ML 1,000 ML IV PRN (03:11)
[2017-10-06 06:15] VITALS: BP 131/62
[2017-10-06] MEDS: ONDANSETRON HCL INJ/PF 4 MG/2 ML SDV IV PRN ×2 (06:30→09:32)
[2017-10-06 07:12] LABS: ABSOLUTE BASOPHILS # (AUTO) 0.1 10^3/uL (0.0-0.2); ABSOLUTE EOSINOPHILS # (AUTO) 0.3 10^3/uL (0.0-0.6); ABSOLUTE LYMPHOCYTES (AUTO) 2.7 10^3/uL (0.5-4.7); ABSOLUTE MONOCYTES (AUTO) 1.3 10^3/uL (0.1-1.4); ABSOLUTE NEUT (AUTO) 9.9 10^3/uL (1.7-8.2); HEMATOCRIT 33.9 % (36.0-47.0); HEMOGLOBIN 11.1 g/dL (12.0-15.5); LYMPHOCYTES % (AUTO) 19.1 % (13-45); MEAN CORPUSCULAR HGB CONC 32.7 g/dL (32.0-36.0); MEAN CORPUSCULAR VOLUME 82 fl (80-97); MONOCYTES % (AUTO) 9.3 % (3-13); PLATELET COUNT 415 10^3/uL (150-450); RED BLOOD COUNT 4.11 10^6/uL (3.72-5.28); RED CELL DISTRIBUTION WIDTH 14.4 % (11.5-14.0); SEGMENTED NEUTROPHILS % (AUTO) 68.6 % (42-78); TOTAL CELLS COUNTED % (AUTO) 100 %; WHITE BLOOD COUNT 14.4 10^3/uL (4.0-10.5)
[2017-10-06] MEDS: IPRATROPIUM/ALBUTEROL 0.5-2.5 MG/3 ML AMPUL NEB PRN (07:26)
[2017-10-06 07:31] LABS: ALBUMIN 3.2 g/dL (3.5-5.0); ANION GAP 9 (5-19); BLOOD UREA NITROGEN 9 mg/dL (7-20); CALCIUM 8.7 mg/dL (8.4-10.2); CARBON DIOXIDE 24 mmol/L (22-30); CHLORIDE 106 mmol/L (98-107); GLUCOSE 112 mg/dL (75-110); PHOSPHORUS 4.3 mg/dL (2.5-4.5); POTASSIUM 4.1 mmol/L (3.6-5.0); SODIUM 139.1 mmol/L (137-145)
[2017-10-06] MEDS: GUAIFENESIN SYRP 200 MG/10 ML UDC PO PRN (09:31)
[2017-10-06] MEDS: CEFEPIME 2 GM/D5W RTU 2 GM/50 ML RTUPB IV SCH (09:32)
[2017-10-06] MEDS: OXYCODONE HCL IR 5 MG TABLET PO PRN (09:32)
[2017-10-06] MEDS: LINEZOLID 600 MG RTU 300 ML IV SCH (10:06)
--- NOTE | 2017-10-06 12:59 | PDOC DISCHARGE SUMMARY ---
General - Admit/Disc Date/PCP Admission Date/Primary Care Provider: 10/03/17 07:36 NO LOCALMD Discharge Date: 10/06/17 - Discharge Diagnosis (1) CAP (community acquired pneumonia) Is this a current diagnosis for this admission?: Yes Summary: Failed outpatient antibiotic regimen prior to admission. Received broad- spectrum coverage including cefepime, vancomycin, Levaquin. - Micro: Blood cultures 2 no growth. Sputum culture growing gram-positive cocci in clusters (speciation pending) - At discharge, clinically improved. Not requiring supplemental O2 Outpatient plan - Continue Levaquin 750mg daily * 5 days (10/06-10/09) - Establish care with PCP, would be reasonable to recheck CXR in 3-4 weeks to assess for PNA resolution (2) Obesity Is this a current diagnosis for this admission?: Yes Summary: Encouraged healthy diet and exercise (3) Asthma Is this a current diagnosis for this admission?: Yes Summary: Per patient's request, provided script for Albuterol INH prn - Additional Information Discharge Diet: As Tolerated Discharge Activity: Activity As Tolerated, Balance Activity w/Rest, Slowly Increase Activity Prescriptions: Albuterol Sulfate [Ventolin Hfa 8 gm Mdi (1 Mdi/ER Disp)] 60 puff IH ASDIR PRN # 1 inhaler PRN Reason: Shortness Of Breath Levofloxacin [Levaquin 750 mg Tablet] 750 mg PO DAILY #5 tab Home Medications: Albuterol Sulfate [Ventolin Hfa 8 gm Mdi (1 Mdi/ER Disp)] 60 puff IH ASDIR PRN # 1 inhaler 10/06/17 Levofloxacin [Levaquin 750 mg Tablet] 750 mg PO DAILY #5 tab 10/06/17 History of Present Illness Patient complains of: Cough, chills, congestion History of Present Illness: PHIL GALVIN is a 27 year old female who presented to the ED with cough, chills, congestion, and she is also developed nausea and vomiting over the past 2 days. She states she is coughing up greenish yellowish sputum. She states that last Saturday she had completed a course of antibiotics (doxycycline), she states that she has asthma, she states that she gets repeated pneumonia and keeps getting over the past 3 years. This is her third visit this month for pneumonia. She states she completed antibiotic before the doxycycline but she cannot remember the name. Physical Exam Vital Signs: Temp Pulse Resp BP Pulse Ox 98.1 F 87 16 131/62 H 96 10/06/17 09:41 10/06/17 09:41 10/06/17 09:41 10/06/17 09:41 10/06/17 09:41 Intake & Output 10/05/17 10/06/17 10/07/17 06:59 06:59 06:59 Intake Total 5140 2500 350 Balance 5140 2500 350 Weight 160.5 kg 0 g General appearance: PRESENT: no acute distress, morbidly obese Mouth exam: PRESENT: moist Respiratory exam: PRESENT: unlabored. ABSENT: tachypnea, wheezes Cardiovascular exam: PRESENT: RRR GI/Abdominal exam: PRESENT: soft, other. ABSENT: tenderness Neurological exam: PRESENT: alert, awake, CN II-XII grossly intact Psychiatric exam: PRESENT: appropriate affect Skin exam: PRESENT: warm Results Laboratory Results: 10/06/17 06:55 10/06/17 06:55 10/06/17 10/06/17 06:55 06:55 WBC 14.4 H RBC 4.11 Hgb 11.1 L Hct 33.9 L MCV 82 MCH 27.0 MCHC 32.7 RDW 14.4 H Plt Count 415 Seg Neutrophils % 68.6 Lymphocytes % 19.1 Monocytes % 9.3 Eosinophils % 2.0 Basophils % 1.0 Absolute Neutrophils 9.9 H Absolute Lymphocytes 2.7 Absolute Monocytes 1.3 Absolute Eosinophils 0.3 Absolute Basophils 0.1 Sodium 139.1 Potassium 4.1 Chloride 106 Carbon Dioxide 24 Anion Gap 9 BUN 9 Creatinine 0.55 Est GFR ( Amer) > 60 Est GFR (Non-Af Amer) > 60 Glucose 112 H Calcium 8.7 Phosphorus 4.3 Albumin 3.2 L Impressions: Chest X-Ray 10/03/17 04:25 IMPRESSION: Moderate right lower lobar pneumonia. Consider CR surveillance including at 7-12 weeks following initiation of clinically warranted therapy. Qualifiers - * PATEINT BEING DISCHARGED WITH ANY OF THE FOLLOWING DIAGNOSIS?: No
== END 2017-10-06 12:50 | disposition home or self-care (01) | DRG 194 ==
LOC: ER 03:35 → EH 07:36 → 4N 15:04 → 2N 23:30
PROVIDERS: ADMIT Internal Medicine; ATTEND Internal Medicine
PROC: 3E0234Z Introduction of Serum, Toxoid and Vaccine into Muscle, Percutaneous Approach (ICD-10-PCS; principal; 2017-10-06)
DX: J18.9 Pneumonia, unspecified organism (principal); Z68.43 Body mass index [BMI] 50.0-59.9, adult; J45.909 Unspecified asthma, uncomplicated; D72.829 Elevated white blood cell count, unspecified; R07.81 Pleurodynia; E66.9 Obesity, unspecified; Z23 Encounter for immunization
CPT/HCPCS: 36415; 71046; 71260; 80053; 80069; 80202; 81001; 83605; 84703; 85025; 85027; 87040; 87070; 87077; 87086; 87186; 87205; 90686; 94640; 96361; 96374; 96375; 99285; J0692; J1885; J1956; J2020; J2270; J2405; J3370; J7030; J7060; J7620

== ENCOUNTER 2017-11-07 11:01 | Emergency (ER) | payer MEDICAID ==
[2017-11-07 11:14] VITALS: BP 139/86
[2017-11-07] MEDS ORDERED: IPRATROPIUM/ALBUTEROL 0.5-2.5 MG/3 ML AMPUL NEB ONE (11:22)
[2017-11-07] MEDS ORDERED: DEXAMETHASONE SOD PHOS INJ 10 MG/1 ML VIAL IM ONE (11:22)
--- NOTE | 2017-11-07 11:25 | ER Document Report ---
HPI - HPI Pain Level: 3 Notes: Patient is a 27-year-old female with a history of asthma and recurrent pneumonia who presents to the ED complaining of a continued dry semi-productive cough and request for an x-ray as she was told to have another chest x-ray performed after her last episode with pneumonia about a month ago. Patient states that she does have inhalers that she uses for her asthma on occasion. She has been eating and drinking without difficulties. She is urinating normally and having normal bowel movements. She has no other concerns or complaints at this time. Denies any headache, fever, URI, sore throat, chest pain, palpitations, syncope, shortness of breath, dyspnea, abdominal pain, nausea/vomiting/diarrhea, urinary retention, dysuria, hematuria, or rash. - ROS Systems Reviewed and Negative: Yes All other systems reviewed and negative - REPRODUCTIVE Reproductive: DENIES: : Past Medical History - Social History Smoking Status: Never Smoker Family History: Other Pulmonary Medical History: Reports: Hx Asthma, Hx Bronchitis, Hx Pneumonia Renal/ Medical History: Denies: Hx Peritoneal Dialysis Past Surgical History: Reports: Hx Section. Denies: Hx Hysterectomy - Immunizations Immunizations up to date: Yes Hx Diphtheria, Pertussis, Tetanus Vaccination: Yes Vertical Provider Document - CONSTITUTIONAL Agree With Documented VS: Yes Notes: PHYSICAL EXAMINATION: GENERAL: Well-appearing, well-nourished and in no acute distress. A&Ox4. Answers questions appropriately. Moves comfortably w/o notable distress HEAD: Atraumatic, normocephalic. EYES: Pupils equal round and reactive to light, extraocular movements intact, sclera anicteric, conjunctiva are normal. ENT: EAC clear b/l. TM's intact b/l without erythema, fluid, or perforation. Nares patent and with clear discharge. oropharynx no erythema without exudates. No tonsilar hypertrophy without erythema or exudate. No palatine shift. Uvula midline. No tongue protrusion. No drooling, hoarseness, or airway compromise. Moist mucous membranes. No sinus tenderness. NECK: Normal range of motion, supple without lymphadenopathy. No rigidity/ meningismus. LUNGS: scant wheeze base b/l. No retractions HEART: Regular rate and rhythm without murmurs, rubs, gallops. NEUROLOGICAL: Normal speech, normal gait. Normal sensory, motor exams PSYCH: Normal mood, normal affect. SKIN: Warm, Dry, normal turgor, no rashes or lesions noted. - INFECTION CONTROL TRAVEL OUTSIDE OF THE [place] IN LAST 30 DAYS: No Course - Re-evaluation Re-evalutation: 11/07/17 11:50 Patient is an afebrile, well-hydrated, 27-year-old female who presents to the ED with pneumonia RLL. Vitals are acceptable. PE is otherwise unremarkable. See CXR result. Patient has no significant tachycardia, tachypnea, or hypoxia. Patient was given DuoNeb and Decadron today. She is tolerating p.o. without any difficulties. I will send her home with a prescription for Tessalon Perles and levaquin. Low suspicion for any respiratory compromise, severe dehydration , sepsis, meningitis, or other systemic emergent condition at this time. Patient is aware that her condition can change from initial presentation and she needs to monitor symptoms closely and seek medical attention for any acute changes. Recommend conservative measures for symptoms. Recheck with your PCM in 3-5 days. Return to the ED with any worsening/concerning symptoms otherwise as reviewed in discharge. Patient is in agreement. - Vital Signs Vital signs: Temp Pulse Resp BP Pulse Ox 98.7 F 80 18 139/86 H 97 11/07/17 11:11 11/07/17 11:11 11/07/17 11:11 11/07/17 11:11 11/07/17 11:11 Discharge - Discharge Clinical Impression: Pneumonia Qualifiers: Pneumonia type: due to unspecified organism Laterality: right Lung location: lower lobe of lung Qualified Code(s): J18.1 - Lobar pneumonia, unspecified organism Condition: Stable Disposition: HOME, SELF-CARE Instructions: Pneumonia ([facility]), Levofloxacin Additional Instructions: Maintain adequate fluid intake Take meds as directed tylenol/ibuprofen as needed over the counter cold medication as needed for symptoms Humidified air may help Wash your hands regularly Wear a mask when coughing F/u: with your PCM in 3-5 days for a recheck Schedule a consult with pulmonology Return to the ED with any fever, worsening pain, chest pain, palpitations, syncope, worsening FOR[place], neck pain/stiffness, shortness of breath, wheezing, drooling, trouble swallowing/breathing, abdominal pain, n/v/d, rash, or worsening/concerning symptoms otherwise. Prescriptions: Benzonatate [Tessalon Perle 100 mg Capsule] 100 mg PO Q8HP PRN #15 cap PRN Reason: Levofloxacin [Levaquin 750 mg Tablet] 750 mg PO DAILY #5 tablet Forms: Elevated Blood Pressure, Return to Work Referrals: DAINA AKERS MD [ACTIVE STAFF] - Follow up in 1 week
--- NOTE | 2017-11-07 12:12 | RADIOLOGY REPORT (SQ) ---
EXAM DESCRIPTION: CHEST 2 VIEWS COMPLETED DATE/TIME: 11/07/2017 11:53 am REASON FOR STUDY: cough COMPARISON: 10/03/2017 EXAM PARAMETERS: NUMBER OF VIEWS: two views TECHNIQUE: Digital Frontal and Lateral radiographic views of the chest acquired. RADIATION DOSE: NA LIMITATIONS: none FINDINGS: LUNGS AND PLEURA: There is some increased density in the right lung base medially which co uld represent a residual or recurrent pneumonic infiltrate. Remaining lung scales are clear. MEDIASTINUM AND HILAR STRUCTURES: No masses or contour abnormalities. HEART AND VASCULAR STRUCTURES: Heart normal size. No evidence for failure. BONES: No acute findings. HARDWARE: None in the chest. OTHER: No other significant finding. IMPRESSION: There is some increased density in the right lung base medially which could represent a residual or recurrent pneumonic infiltrate. Remaining lung scales are clear. TECHNICAL DOCUMENTATION: JOB ID: [id number] [employer]- All Rights Reserved Reading location - IP/workstation name: [email or web address]
== END 2017-11-07 12:22 | disposition home or self-care (01) ==
LOC: ER 11:01
DX: J18.1 Lobar pneumonia, unspecified organism (principal)
CPT/HCPCS: 94640; 99283; 96372; 81025; 71046; J1100; J7620

== ENCOUNTER 2017-11-08 09:02 | Inpatient (IN) | payer MEDICAID ==
--- NOTE | 2017-11-08 09:35 | ER Document Report ---
ED Medical Screen (RME) - General Chief Complaint: Nausea/Vomiting/Diarrhea Stated Complaint: DIARRHEA Time Seen by Provider: 11/08/17 09:26 Notes: 27-year-old female patient with asthma seen in emergency room early yesterday morning with dry cough. Chest x-ray compared to a pneumonia in-patient admission CXR on 10/03/2017 suggested recurrent infiltrate versus persistent infiltrate versus scarring. She was given DuoNeb, Decadron, prescription for Tessalon Perles and Levaquin. She reports about 2 PM yesterday after leaving the hospital she developed nausea vomiting diarrhea which has persisted since then. She reports that Her up all night long due to the diarrhea. There is no fever. She complains of pain in her right ribs and right back around her kidney area. I have greeted and performed a rapid initial assessment of this patient. A comprehensive ED assessment and evaluation of the patient, analysis of test results and completion of the medical decision making process will be conducted by additional ED providers. TRAVEL OUTSIDE OF THE [place] IN LAST 30 DAYS: No - Related Data Allergies/Adverse Reactions: No Known Allergies Allergy (Verified 11/08/17 09:25) Past Medical History - Social History Chew tobacco use (# tins/day): No Frequency of alcohol use: None Drug Abuse: None Family history: None Pulmonary Medical History: Reports: Hx Asthma, Hx Bronchitis, Hx Pneumonia Renal/ Medical History: Denies: Hx Peritoneal Dialysis Past Surgical History: Reports: Hx Section. Denies: Hx Hysterectomy - Immunizations Immunizations up to date: Yes Hx Diphtheria, Pertussis, Tetanus Vaccination: Yes History of Influenza Vaccine for 04/2017 - 09/2017 Season: No Physical Exam - Vital signs Vitals: Temp Pulse BP Pulse Ox 98.0 F 106 H 131/90 H 97 11/08/17 09:10 11/08/17 09:10 11/08/17 09:10 11/08/17 09:10 Course - Vital Signs Vital signs: Temp Pulse Resp BP Pulse Ox 98.0 F 106 H 131/90 H 97 11/08/17 09:10 11/08/17 09:10 11/08/17 09:10 11/08/17 09:10
--- NOTE | 2017-11-08 09:58 | RADIOLOGY REPORT (SQ) ---
EXAM DESCRIPTION: CHEST 2 VIEWS COMPLETED DATE/TIME: 11/08/2017 9:42 am REASON FOR STUDY: cough, R rib and back pain, ? new vs persistnt inf COMPARISON: 11/07/2017. TECHNIQUE: Frontal and lateral radiographic views of the chest acquired. NUMBER OF VIEWS: Two view. LIMITATIONS: None. FINDINGS: LUNGS AND PLEURA: Worsening aeration in the lung bases, likely predominantly subsegmental atelectasis. Lateral view shows mild increased density over the spine, however. Likely recurrent ba silar pneumonia. MEDIASTINUM AND HILAR STRUCTURES: No masses or contour abnormalities. HEART AND VASCULAR STRUCTURES: Heart normal size. No evidence for failure. BONES: No acute findings. HARDWARE: None in the chest. OTHER: No other significant finding. IMPRESSION: Recurrent/progressive right basilar pneumonia. TECHNICAL DOCUMENTATION: JOB ID: [id number] [email or web address]- All Rights Reserved Reading location - IP/workstation name: [email or web address]
[2017-11-08] MEDS ORDERED: PIPERACILLIN/TAZOBACTAM 3.375 GM VIAL IV ONE (10:08)
[2017-11-08] MEDS ORDERED: VANCOMYCIN HCL INJ 1000 MG VIAL IV ONE (10:08)
[2017-11-08] MEDS ORDERED: CEFEPIME 1 GM/D5W RTU 1 GM/50 ML RTUPB IV ONE (10:09)
--- NOTE | 2017-11-08 10:49 | ER Document Report ---
ED General - General Chief Complaint: Nausea/Vomiting/Diarrhea Stated Complaint: DIARRHEA Time Seen by Provider: 11/08/17 09:26 Mode of Arrival: Ambulatory Information source: Patient Notes: 27-year-old female presents with complaints of right lower lobe pneumonia of 3 years duration intermittently. Patient has she has been on multiple dose of antibiotics was seen here yesterday noted to have progressive pneumonia, was started on levofloxacin and cough suppressant and notes that she has been having nausea vomiting diarrhea TRAVEL OUTSIDE OF THE [place] IN LAST 30 DAYS: No - HPI Onset: Other Onset/Duration: Persistent Quality of pain: Achy Severity: Mild Pain Level: 1 Associated symptoms: Productive cough, Diarrhea, Nausea, Vomiting Exacerbated by: Denies Relieved by: Denies Similar symptoms previously: No Recently seen / treated by doctor: No - Related Data Allergies/Adverse Reactions: No Known Allergies Allergy (Verified 11/08/17 09:25) Past Medical History - Social History Smoking Status: Never Smoker Cigarette use (# per day): No Chew tobacco use (# tins/day): No Smoking Education Provided: No Frequency of alcohol use: None Drug Abuse: None Family History: Other Patient has suicidal ideation: No Patient has homicidal ideation: No Pulmonary Medical History: Reports: Hx Asthma, Hx Bronchitis, Hx Pneumonia Renal/ Medical History: Denies: Hx Peritoneal Dialysis Past Surgical History: Reports: Hx Section. Denies: Hx Hysterectomy - Immunizations Immunizations up to date: Yes Hx Diphtheria, Pertussis, Tetanus Vaccination: Yes Review of Systems - Review of Systems Notes: REVIEW OF SYSTEMS: CONSTITUTIONAL : Denies fever, chills, or sweats. Denies recent illness. EENT: Denies eye, ear, throat, or mouth pain or symptoms. Denies nasal or sinus congestion or discharge. Denies throat, tongue, or mouth swelling or difficulty swallowing. CARDIOVASCULAR: Denies chest pain. Denies palpitations or racing or irregular heart beat. Denies ankle edema. RESPIRATORY: Admits productive cough GASTROINTESTINAL: Admits to epigastric pain abdominal cramping diarrhea nausea vomiting GENITOURINARY: Denies difficulty urinating, painful urination, burning, frequency, blood in urine, or discharge. FEMALE GENITOURINARY: Denies vaginal bleeding, heavy or abnormal periods, irregular periods. Denies vaginal discharge or odor. MUSCULOSKELETAL: Denies back or neck pain or stiffness. Denies joint pain or swelling. SKIN: Denies rash, lesions or sores. HEMATOLOGIC : Denies easy bruising or bleeding. LYMPHATIC: Denies swollen, enlarged glands. NEUROLOGICAL: Denies confusion or altered mental status. Denies passing out or loss of consciousness. Denies dizziness or lightheadedness. Denies headache. Denies weakness or paralysis or loss of use of either side. Denies problems with gait or speech. Denies sensory loss, numbness, or tingling. Denies seizures. PSYCHIATRIC: Denies anxiety or stress. Denies depression, suicidal ideation, or homicidal ideation. ALL OTHER SYSTEMS REVIEWED AND NEGATIVE. PHYSICAL EXAMINATION: GENERAL: Well-appearing, well-nourished and in no acute distress. HEAD: Atraumatic, normocephalic. EYES: Pupils equal round and reactive to light, extraocular movements intact, conjunctiva are normal. ENT: Nares patent, oropharynx clear without exudates. Moist mucous membranes. NECK: Normal range of motion, supple without lymphadenopathy LUNGS: Crackles right lower lobe HEART: Regular rate and rhythm without murmurs ABDOMEN: Soft, nontender, nondistended abdomen. No guarding, no rebound. No masses appreciated. Female : deferred Musculoskeletal: Normal range of motion, no pitting or edema. No cyanosis. NEUROLOGICAL: Cranial nerves grossly intact. Normal speech, normal gait. Normal sensory, motor exams PSYCH: Normal mood, normal affect. SKIN: Warm, Dry, normal turgor, no rashes or lesions noted. Dictation was performed using [employer] voice recognition software Physical Exam - Vital signs Vitals: Temp Pulse BP Pulse Ox 98.0 F 106 H 131/90 H 97 11/08/17 09:10 11/08/17 09:10 11/08/17 09:10 11/08/17 09:10 Course - Re-evaluation Re-evalutation: 11/08/17 10:49 Patient's presentation is quite concerning given this recurrent pneumonia over the past 3 years which has been documented times with imaging I will await lab results 11/08/17 19:12 Given the patient has continued pneumonia has a white count I will admit for IV antibiotics and pulmonology involvement - Vital Signs Vital signs: Temp Pulse Resp BP Pulse Ox 98.0 F 95 23 H 133/96 H 95 11/08/17 09:10 11/08/17 15:39 11/08/17 14:08 11/08/17 14:08 11/08/17 14:08 - Laboratory Result Diagrams: 11/08/17 11:29 11/08/17 11:29 Laboratory results interpreted by me: 11/08/17 11/08/17 11/08/17 10:45 11:29 11:29 WBC 16.3 H RDW 17.1 H Seg Neutrophils % 88.5 H Lymphocytes % 6.0 L Absolute Neutrophils 14.4 H Carbon Dioxide 21 L Glucose 150 H Urine Protein 30 H Discharge - Discharge Clinical Impression: Pneumonia Qualifiers: Pneumonia type: due to unspecified organism Laterality: right Lung location: lower lobe of lung Qualified Code(s): J18.1 - Lobar pneumonia, unspecified organism Nausea & vomiting Qualifiers: Vomiting type: unspecified Vomiting Intractability: non-intractable Qualified Code(s): R11.2 - Nausea with vomiting, unspecified Diarrhea Qualifiers: Diarrhea type: infectious Qualified Code(s): A09 - Infectious gastroenteritis and colitis, unspecified Condition: Stable Disposition: ADMITTED INPATIENT Admitting Provider: Hospitalist Unit Admitted: Telemetry
[2017-11-08 11:19] LABS: APPEARANCE,URINE SLIGHTLY-CLOUDY; BILIRUBIN,URINE NEGATIVE (NEGATIVE); COLOR,URINE YELLOW; GLUCOSE, URINE NEGATIVE (NEGATIVE); KETONES,URINE NEGATIVE (NEGATIVE); LEUKOCYTE ESTERASE,URINE NEGATIVE (NEGATIVE); NITRITE,URINE NEGATIVE (NEGATIVE); PROTEIN,URINE 30 mg/dL (NEGATIVE); URINE SPECIFIC GRAVITY 1.035; UROBILINOGEN,URINE NEGATIVE mg/dL (<2.0)
[2017-11-08 11:56] LABS: ABSOLUTE MONOCYTES (AUTO) 0.9 10^3/uL (0.1-1.4); ABSOLUTE NEUT (AUTO) 14.4 10^3/uL (1.7-8.2); BASOPHILS % (AUTO) 0.2 % (0-2); EOSINOPHILS % (AUTO) 0.1 % (0-6); MEAN CORPUSCULAR HEMOGLOBIN 27.5 pg (27.0-33.4); MEAN CORPUSCULAR HGB CONC 32.6 g/dL (32.0-36.0); MEAN CORPUSCULAR VOLUME 84 fl (80-97); MONOCYTES % (AUTO) 5.2 % (3-13); PLATELET COUNT 300 10^3/uL (150-450); RED BLOOD COUNT 5.11 10^6/uL (3.72-5.28); RED CELL DISTRIBUTION WIDTH 17.1 % (11.5-14.0); SEGMENTED NEUTROPHILS % (AUTO) 88.5 % (42-78); TOTAL CELLS COUNTED % (AUTO) 100 %; WHITE BLOOD COUNT 16.3 10^3/uL (4.0-10.5)
[2017-11-08 12:14] LABS: ALANINE AMINOTRANSFERASE 34 U/L (9-52); ALBUMIN 4.3 g/dL (3.5-5.0); ALKALINE PHOSPHATASE 101 U/L (38-126); ANION GAP 19 (5-19); ASPARTATE AMINO TRANSFERASE 19 U/L (14-36); BILIRUBIN,DIRECT 0.3 mg/dL (0.0-0.4); BILIRUBIN,TOTAL 0.5 mg/dL (0.2-1.3); BLOOD UREA NITROGEN 20 mg/dL (7-20); CALCIUM 9.4 mg/dL (8.4-10.2); CARBON DIOXIDE 21 mmol/L (22-30); CHLORIDE 104 mmol/L (98-107); GLUCOSE 150 mg/dL (75-110); SODIUM 144.4 mmol/L (137-145); TOTAL PROTEIN 7.9 g/dL (6.3-8.2)
[2017-11-08] MEDS ORDERED: GUAIFENESIN 600 MG TABLET.SA PO ONE (12:36)
[2017-11-08] MEDS ORDERED: LACTOBACILLUS ACIDOPHILUS 250 MG TAB PO ONE (12:37)
--- NOTE | 2017-11-08 13:55 | RADIOLOGY REPORT (SQ) ---
EXAM DESCRIPTION: CT CHEST WITH COMPLETED DATE/TIME: 11/08/2017 1:36 pm REASON FOR STUDY: FU PNA COMPARISON: 10/03/2017. TECHNIQUE: CT scan of the chest performed using helical scanning technique with dynamic intravenous contrast injection. Images reviewed with lung, soft tissue and bone windows. Reconstructed coronal and sagittal MPR images reviewed. All images stored on PACS. All CT scanners at this facility use dose modulation, iterative reconstruction, and/or weight based d osing when appropriate to reduce radiation dose to as low as reasonably achievable (ALARA). [facility]: Dose Right [facility]: CareDose [facility]: Dose Right [facility]: Teradose 4D [facility]: [place] CONTRAST TYPE AND DOSE: contrast/concentration: Isovue 370.00 mg/ml; Total Contrast Delivered: 80.0 ml; Total Saline Delivered: 35.1 ml RENAL FUNCTION: None required. The patient is less than 50 years old. RADIATION DOSE: CT Rad equipment meets quality standard of care and radiation dose reduction techniq ues were employed. CTDIvol: 21.1 mGy. DLP: 831 mGy-cm. . LIMITATIONS: None. FINDINGS: LUNGS AND PLEURA: Improvement in volume loss and airspace disease in the right lower lobe. However, there is a persistent ovoid lesion containing internal air-fluid levels now. This has an elongated appearance on coronal and sagittal reconstructions. Oligo cystic appearance. Up to 5 cm c raniocaudal by just under 4 cm transverse. There is adjacent endobronchial tissue, either mucous plu gging or small mass. HILAR AND MEDIASTINAL STRUCTURES: No identified masses or abnormal nodes. HEART AND VASCULAR STRUCTURES: No aneurysm or dissection. No central pulmonary emboli. No pericardi al effusion. HARDWARE: None in the chest. UPPER ABDOMEN: No significant findings. Limited exam. THYROID AND OTHER SOFT TISSUES: No masses. No adenopathy. BONES: No significant finding. OTHER: No other significant finding. IMPRESSION: Improved aeration right lower lobe, but there is a persistent underlying cystic lesion c ontaining fluid and gas. Adjacent material plugging the bronchial tree. While this may represent ca vitation of pneumonia, consider also underlying congenital pulmonary airway malformation. Differenti al would also include pulmonary sequestration and cystic bronchiectasis. Pulmonology referral for fu rther evaluation recommended. TECHNICAL DOCUMENTATION: JOB ID: [id number] Quality ID # [id number]: Final reports with documentation of one or more dose reduction techniques (e.g., Au tomated exposure control, adjustment of the mA and/or kV according to patient size, use of iterative reconstruction technique) 2010 [employer]- All Rights Reserved Reading location - IP/workstation name: [email or web address]
[2017-11-08] MEDS ORDERED: VANCOMYCIN HCL 1,000 MG in DEXTROSE 5%-WATER 250 ML IV ONE (14:00)
[2017-11-08] MEDS: LACTOBACILLUS ACIDOPHILUS 250 MG TAB PO SCH (17:49)
[2017-11-08] MEDS: PIPERACILLIN SODIUM/TAZOBACTAM 4.5 GM in NORMAL SALINE 100 ML IV SCH ×2 (17:50→23:35)
--- NOTE | 2017-11-08 19:24 | HISTORY AND PHYSICAL E ---
History and Physical NAME: PHIL GALVIN : 1990 AGE: 27Y ADMITTED: 11/08/2017 ROOM: 532 PRIMARY CARE PROVIDER: Not established. CHIEF COMPLAINT: Cough and diarrhea. HISTORY OF PRESENT ILLNESS: The patient is a 27-year-old female with a past medical history of recurrent pneumonias. The patient presented to the emergency department with a chief complaint of cough, sputum production, as well as diarrhea. The patient was apparently treated in the emergency department just yesterday, and was discharged on Levaquin and Tessalon Perles. The patient stated that she became quite nauseous after this. Had an episode of diarrhea; thus, came back to the emergency department for evaluation. The patient was admitted to the hospitalist service on 10/03/2017 through 10/06/2017. At that time, the patient was found to have a right lower leg pneumonia. The patient was admitted because she had failed outpatient management with doxycycline, and was discharged during that admission on Levaquin. The patient was recommended to come back to the hospital for followup imaging. The patient did, and was found to have a persistent pneumonia, and therefore yesterday, was sent out with Levaquin, which she did not tolerate. Stool studies obtained in the emergency department did not show any evidence of C. diff. The patient states that she has been having difficulty with recurrent pneumonia for about 3 years now. She has not seen Pulmonology for this; has not had bronchoscopy. Has only had CT imaging done at this facility. The patient is understandably concerned. At the time of presentation, the patient had a white count of 16.3, neutrophilic dominant at 88.5. The patient is noted to be afebrile. She is not tachycardic. Blood pressure is in acceptable range. Slightly tachypneic, but this did improve with O2, and the patient has been referred to the hospital for admission and management. PAST MEDICAL HISTORY: Remarkable for: 1. Childhood asthma. 2. Recurrent pneumonia. PAST SURGICAL HISTORY: Remarkable for: 1. . HOME MEDICATIONS: Included: 1. Levaquin 750 mg p.o. daily. 2. Tessalon Perles 100 mg p.o. q.8 hours p.r.n. 3. Ventolin HFA 2 puffs inhalation q.4 to 6 hours p.r.n. ALLERGIES: No known drug allergies. SOCIAL HISTORY: The patient currently resides at home. The patient is employed full-time as a licensed practical nurse. The patient's surrogate decision-maker at this time is her mother, Yolie, who can be reached at [phone]. The patient denies any alcohol use or illicit drug use. The patient has never smoked. FAMILY MEDICAL HISTORY: The patient's grandmother, interestingly, of a persistent pneumonia. The patient's mother is alive, without any medical problems. The patient's father is alive, with no medical problems. The patient does have siblings who are healthy. The patient does have a child who is healthy. The patient denies any family history of tuberculosis or chronic lung diseases. REVIEW OF SYSTEMS: CONSTITUTIONAL: The patient denies any fevers, chills. No dizziness. Denies any night sweats. No change of appetite. SKIN: The patient denies any diaphoresis. No rashing, bruising or itching. HEENT: Denies any vision or hearing loss. No nasal drainage. Does admit to ongoing sore throat, which has been a chronic issue for her, as well as headache. CVS: Does admit to right-sided chest pain that is pleuritic in nature. No edema, heart palpitations. Admits to dyspnea with exertion. RESPIRATORY: Has had a strong cough and producing some sputum. No hemoptysis. GI: Denies any abdominal pain, bloating, hematemesis, constipation, melena. No hematochezia. Does admit to nausea, vomiting and diarrhea. : Denies any hematuria, pyuria or dysuria. MUSCULOSKELETAL: Denies any acute or chronic joint pain. NEUROLOGICAL: No seizure, tremors of loss of consciousness. HEMATOLOGICAL: Denies any ayla bleeding, easy bruising. ENDOCRINE: Denies any recent weight changes. PSYCHIATRIC: Denies any suicidal or homicidal ideation. The rest of review of the other organ systems is negative. PHYSICAL EXAMINATION: GENERAL: On examination, the patient is a very pleasant 27-year-old female, who is awake, alert and oriented to person, place, time and situation. She is verbal, conversational, ambulatory. Does not appear to be in any acute distress. VITAL SIGNS: Temperature is 98.0, pulse 92, respirations 23, blood pressure is 133/96, oxygen saturation is 95% on room air. SKIN: Warm and dry. No rash. She is not diaphoretic. HEENT: Pupils equal, round, reactive to light and accommodation. Conjunctivae are pink. Sclerae are nonicteric. No mouth lesions. Tongue is midline. NECK: Supple. No JVD. No palpable lymphadenopathy or thyromegaly. CVS: Heart is regular. There is no murmur or rub. CHEST: Diminished, symmetrical, unlabored. ABDOMEN: Obese, soft, nontender, nondistended. BACK: No CVA tenderness or sacral edema. EXTREMITIES: No clubbing, cyanosis or edema, or peripheral signs of embolization. Plus 1 pedal pulses noted bilaterally. PSYCHIATRIC: Appropriate affect. Pleasant mood. DIAGNOSTICS: Lab values are as follows: Hematology obtained on 11/08/2017: WBCs are 16.3, hemoglobin is 40.0, hematocrit is 43.0, platelet count of 300,000. Chemistry obtained on 11/08/2017: Sodium is 144, potassium 4.0, chloride is 104, carbon dioxide is 21, BUN 20, creatinine 0.78. Glucose 150. Calcium is 9.4. Bilirubin is 0.5, AST 19, ALT is 34, alk phos 101. Total protein 7.9, albumin 4.3. Urinalysis obtained on 11/08/2017: Color yellow. Appearance slightly cloudy. The pH is 5.0, specific gravity is 1.035, protein 30, glucose 98, ketones negative, occult blood negative, nitrite negative, bili negative, urobilinogen negative, leukocyte esterase was negative. WBCs 2, RBCs 2, bacteria trace, mucus few, ascorbic acid negative. Other bodily specimens obtained on 11/08/2017: Stool for WBCs was negative. Serology obtained on 11/08/2017: C. diff toxin is negative. Blood culture sent on 11/08/2017 is pending. Stool culture sent on 11/08/2017 is pending. Chest x-ray obtained on 11/08/2017 reveals recurrent progressive right basilar pneumonia. IMPRESSION AND PLAN: 1. Persistent right basilar pneumonia. Will admit the patient to continue with telemetry. Will place the patient on broad spectrum antibiotic coverage, as well as Mucinex, and encourage pulmonary toileting. Will consult Dr. James with Pulmonology. The patient most likely will benefit from bronchoscopy. Will obtain a myriad of atypicals, including legionella, chlamydia screening, as well as HIV and QuantiFERON, and follow. 2. Morbid obesity, with a BMI of 57. The patient has been counseled regarding weight reduction. DISPOSITION: The patient is a FULL CODE. Pending patient's symptomatology and diagnostic findings, will reevaluate in the a.m. Will admit the patient to inpatient telemetry, as the patient's expected length of stay should surpass 2 midnights. Time spent on this followup, including assessment, plan, physical examination, patient education and review of records is 50 minutes. DICTATING PHYSICIAN: BEENA KINNEY NP [id number] PHY#: [id number] ID: [id number] JOB#: [id number] ACCT: [id number] cc:MAYUR VAZQUEZ M.D. >
[2017-11-08] MEDS: ACETAMINOPHEN 325 MG TABLET PO PRN (20:01)
[2017-11-08] MEDS: ONDANSETRON HCL INJ/PF 4 MG/2 ML SDV IV PRN (21:05)
[2017-11-08] MEDS: GUAIFENESIN 600 MG TABLET.SA PO SCH (21:05)
[2017-11-08] MEDS: MONTELUKAST SODIUM 10 MG TABLET PO SCH (21:06)
--- NOTE | 2017-11-08 22:39 | CONSULTATION REPORT E ---
Consultation Report NAME: PHIL GALVIN : 1990 AGE: 27Y DATE: 11/08/2017 532 A TO: EARL GRADY M.D. FROM: ALEE DAWSON M.D. Requesting Physician HISTORY OF PRESENT ILLNESS: Patient is a 27-year-old female who came in with nausea, vomiting, not feeling well, pleuritic chest pain. Patient claims that she coughed up some blood, yellow-pink phlegm. Denies any hemoptysis. Denies any increasing dyspnea. Had a chest x-ray done today, showing posterior infiltrate in the right lung base, posterior to the cardiac shadow. Had a CAT scan showing cavitation involving the right lower lobe. Patient was in the hospital September 2017 for pneumonia, right lower lobe. Claims that she has history of recurrent pneumonia. Denies any exposure to tuberculosis. Denies any illicit drug use, alcohol abuse. Had 2 stools sent for C. diff this morning, which were negative. Claims that she was sent home on Levaquin for about 1 week after discharge from the hospital in September 2017. Claims that she was on IV antibiotics for at least 5 days when she was admitted. PAST MEDICAL HISTORY: History of asthma, recurrent pneumonia. PAST SURGICAL HISTORY: section. HOME MEDICATIONS: Include Levaquin 750 mg for about 1 week, Tessalon Perles and Ventolin inhaler 2 puffs every 6 hours as needed. ALLERGIES: No known drug allergies. SOCIAL HISTORY: Patient resides at home. Patient is employed full-time as a public works manager. Patient does not have a surrogate decision-maker at this time. Patient denies any alcohol abuse or illicit drug use. Denies any smoking history. FAMILY HISTORY: Patient's grandmother of pneumonia. Mother is alive, without any medical problems. Father is alive, without any medical problems. Denies any history of tuberculosis among the family members, according to *------*. REVIEW OF SYSTEMS: CONSTITUTIONAL: No fever or chills or dizziness. EYES: No jaundice or pallor. EARS, NOSE AND THROAT: No ear drainage noted. No nasal discharge. HEAD AND NECK: No scalp pain or swelling or neck pain. LUNGS: Complained about increased cough, with small specks of mucinous globs. Denies any hemoptysis. Has some pain, right lung base posteriorly. CARDIOVASCULAR: No palpitations. No chest pain or history of heart attack or cardiac arrhythmia. EXTREMITIES: No joint pain, no cellulitis. PHYSICAL EXAMINATION: GENERAL: The patient is awake, alert, coherent, oriented x3. VITAL SIGNS: Temperature is 98 degrees Fahrenheit. The blood pressure is 133/96, heart rate of 95, saturation is 95% on room air. EYES: No jaundice or pallor. EARS, NOSE AND THROAT: No ear drainage noted. No nasal discharge. HEAD AND NECK: No scalp swelling. No neck pain or neck tenderness. CHEST AND LUNGS: No wheezing. No rhonchi. Coarse crackles. CARDIOVASCULAR: S1/S2 distant. Normal rate, regular rhythm. ABDOMEN: Flat, with positive bowel sounds. Nondistended, nontender. EXTREMITIES: No joint swelling or cellulitis. DIAGNOSTICS: CBC done today shows white count of 16.3, hemoglobin is 14 and hematocrit is 43. The platelet count is 300,000. No bands noted. Chemistry done today at 11:00 showed sodium is 144, potassium is 4, chloride is 104, CO2 is 21, BUN is 20, creatinine is 0.78, glucose 150, calcium is 9.4. SGOT is 19, SGPT is 34. Alkaline phosphatase is 101. Chest CT scan done today showed cavitation involving the right lower lobe, with increased opacity posteriorly, and some air-fluid level. ASSESSMENT: 1. Pneumonia, right lower lobe, with cavitation. Sputum culture done last September showed methicillin-sensitive Staphylococcus aureus. 2. Morbid obesity. 3. Leukocytosis. PLAN AND RECOMMENDATIONS: 1. Continue current IV antibiotics at the same dose every 6 hours. 2. Will do a sputum culture to include AFB, bacteria and fungi today, and one again tomorrow. 3. Will consider bronchoscopy next week, if the sputum culture remains negative and the patient is not feeling better. If you have any questions, please feel free to call me. DICTATING PHYSICIAN: EARL GRADY MD,[place],MPH [id number] PHY#: [id number] ID: [id number] JOB#: [id number] ACCT: [id number] cc:EARL GRADY M.D. > [facility]
[2017-11-09] MEDS ORDERED: LOPERAMIDE HCL 2 MG CAPSULE PO ONE (02:30)
[2017-11-09] MEDS: PIPERACILLIN SODIUM/TAZOBACTAM 4.5 GM in NORMAL SALINE 100 ML IV SCH ×4 (05:24→23:51)
[2017-11-09] MEDS: ENOXAPARIN SODIUM INJ 40 MG/0.4 ML DISP.SYRIN SUBCUT SCH (10:24)
[2017-11-09] MEDS: ONDANSETRON HCL INJ/PF 4 MG/2 ML SDV IV PRN (10:25)
[2017-11-09] MEDS: LACTOBACILLUS ACIDOPHILUS 250 MG TAB PO SCH ×2 (10:25→17:45)
[2017-11-09] MEDS: GUAIFENESIN 600 MG TABLET.SA PO SCH ×2 (10:25→22:26)
--- NOTE | 2017-11-09 16:16 | PDOC PROGRESS REPORT ---
Subjective Progress Note for:: 11/09/17 Subjective:: This patient was admitted with recurrent pneumonia over the last few weeks. It appears she has been treated with various antibiotics as is currently on Zosyn intravenously. Had been on doxycycline as well as Levaquin at various times. There is a history of recurrent pneumonia for 3 years. Her white count was 16.3 on initial presentation. Her main complaint today is diarrhea with multiple times. C. difficile is negative as well as WBC. Reason For Visit: PNA Physical Exam Vital Signs: Temp Pulse Resp BP Pulse Ox 98.4 F 85 16 109/68 98 11/09/17 11:00 11/09/17 14:00 11/09/17 11:00 11/09/17 11:00 11/09/17 11:00 Intake & Output 11/08/17 11/09/17 11/10/17 06:59 06:59 06:59 Intake Total 800 Balance 800 Weight 157 kg General appearance: PRESENT: no acute distress, morbidly obese, well-developed Head exam: PRESENT: atraumatic, normocephalic Neck exam: ABSENT: carotid bruit, JVD, lymphadenopathy, thyromegaly Respiratory exam: PRESENT: clear to auscultation jourdan. ABSENT: rales, rhonchi, wheezes Cardiovascular exam: PRESENT: RRR. ABSENT: diastolic murmur, rubs, systolic murmur Rectal exam: PRESENT: deferred Neurological exam: PRESENT: alert, awake, oriented to person, oriented to place , oriented to time, oriented to situation, CN II-XII grossly intact. ABSENT: motor sensory deficit Results Impressions: Chest CT 11/08/17 00:00 IMPRESSION: Improved aeration right lower lobe, but there is a persistent underlying cystic lesion containing fluid and gas. Adjacent material plugging the bronchial tree. While this may represent cavitation of pneumonia, consider also underlying congenital pulmonary airway malformation. Differential would also include pulmonary sequestration and cystic bronchiectasis. Pulmonology referral for further evaluation recommended. Chest X-Ray 11/08/17 09:32 IMPRESSION: Recurrent/progressive right basilar pneumonia. Assessment & Plan - Time Time Spent with patient: 15-24 minutes Medications reviewed and adjusted accordingly: Yes Anticipated discharge: Home Within: within 72 hours - Plan Summary Plan Summary: Current and persistent right basilar pneumonia. Patient has been seen by a firearms instructor and the plan is for a bronchoscopy to be done. It is very unusual to have a an otherwise 27-year-old healthy patient with "" pneumonia and I agree that she really does need a firearms instructor evaluation. Other possible etiologies will be bronchiectasis and may be a variant of fibrosis. I will leave on her current antibiotics now but would also consider telephone consultation with infectious disease once we get some specimens and culture results back. 2. Morbid obesity patient really needs to lose weight 3. Diarrhea possibly antibiotic associated
[2017-11-09] MEDS ORDERED: LOPERAMIDE HCL 2 MG CAPSULE PO PRN (16:18)
[2017-11-09] MEDS: MONTELUKAST SODIUM 10 MG TABLET PO SCH (22:26)
[2017-11-10] MEDS: PIPERACILLIN SODIUM/TAZOBACTAM 4.5 GM in NORMAL SALINE 100 ML IV SCH ×4 (05:39→23:34)
[2017-11-10 06:12] LABS: ABSOLUTE EOSINOPHILS # (AUTO) 0.3 10^3/uL (0.0-0.6); ABSOLUTE LYMPHOCYTES (AUTO) 2.8 10^3/uL (0.5-4.7); ABSOLUTE MONOCYTES (AUTO) 0.9 10^3/uL (0.1-1.4); ABSOLUTE NEUT (AUTO) 5.1 10^3/uL (1.7-8.2); BASOPHILS % (AUTO) 0.4 % (0-2); EOSINOPHILS % (AUTO) 3.5 % (0-6); HEMATOCRIT 38.8 % (36.0-47.0); HEMOGLOBIN 12.9 g/dL (12.0-15.5); LYMPHOCYTES % (AUTO) 30.5 % (13-45); MEAN CORPUSCULAR HEMOGLOBIN 27.9 pg (27.0-33.4); MEAN CORPUSCULAR HGB CONC 33.3 g/dL (32.0-36.0); MEAN CORPUSCULAR VOLUME 84 fl (80-97); MONOCYTES % (AUTO) 10.2 % (3-13); PLATELET COUNT 244 10^3/uL (150-450); RED BLOOD COUNT 4.64 10^6/uL (3.72-5.28); RED CELL DISTRIBUTION WIDTH 16.6 % (11.5-14.0); SEGMENTED NEUTROPHILS % (AUTO) 55.4 % (42-78); TOTAL CELLS COUNTED % (AUTO) 100 %; WHITE BLOOD COUNT 9.2 10^3/uL (4.0-10.5)
[2017-11-10 06:28] LABS: ANION GAP 13 (5-19); BLOOD UREA NITROGEN 13 mg/dL (7-20); CALCIUM 8.7 mg/dL (8.4-10.2); CARBON DIOXIDE 18 mmol/L (22-30); CHLORIDE 110 mmol/L (98-107); GLUCOSE 100 mg/dL (75-110); POTASSIUM 3.7 mmol/L (3.6-5.0); SODIUM 140.8 mmol/L (137-145)
[2017-11-10] MEDS: ENOXAPARIN SODIUM INJ 40 MG/0.4 ML DISP.SYRIN SUBCUT SCH (09:49)
[2017-11-10] MEDS: GUAIFENESIN 600 MG TABLET.SA PO SCH ×2 (09:50→21:48)
[2017-11-10] MEDS: LACTOBACILLUS ACIDOPHILUS 250 MG TAB PO SCH ×2 (09:50→17:32)
--- NOTE | 2017-11-10 13:24 | PDOC PROGRESS REPORT ---
Subjective Progress Note for:: 11/10/17 Subjective:: This patient was admitted with recurrent pneumonia over the last few weeks. It appears she has been treated with various antibiotics as is currently on Zosyn intravenously. Had been on doxycycline as well as Levaquin at various times. There is a history of recurrent pneumonia for 3 years. Her white count was 16.3 on initial presentation. Diarrhea has subsided and patient feels better Reason For Visit: PNA Physical Exam Vital Signs: Temp Pulse Resp BP Pulse Ox 98.0 F 67 16 124/60 96 11/10/17 03:49 11/10/17 07:00 11/10/17 03:49 11/10/17 03:49 11/10/17 03:49 Intake & Output 11/09/17 11/10/17 11/11/17 06:59 06:59 06:59 Intake Total 800 1446 Balance 800 1446 Weight 157 kg 158 kg General appearance: PRESENT: no acute distress, morbidly obese Head exam: PRESENT: atraumatic Eye exam: PRESENT: conjunctiva pink, EOMI, PERRLA. ABSENT: scleral icterus Neck exam: ABSENT: carotid bruit, JVD, lymphadenopathy, thyromegaly Respiratory exam: PRESENT: clear to auscultation jourdan. ABSENT: rales, rhonchi, wheezes Cardiovascular exam: PRESENT: RRR. ABSENT: diastolic murmur, rubs, systolic murmur Pulses: PRESENT: normal carotid pulses GI/Abdominal exam: PRESENT: ascites Extremities exam: PRESENT: full ROM. ABSENT: calf tenderness, clubbing, pedal edema Musculoskeletal exam: PRESENT: ambulatory Neurological exam: PRESENT: alert, awake, oriented to person, oriented to place , oriented to time, oriented to situation, CN II-XII grossly intact. ABSENT: motor sensory deficit Psychiatric exam: PRESENT: appropriate affect Results Laboratory Results: 11/10/17 05:57 11/10/17 05:57 11/10/17 11/10/17 05:57 05:57 WBC 9.2 RBC 4.64 Hgb 12.9 Hct 38.8 MCV 84 MCH 27.9 MCHC 33.3 RDW 16.6 H Plt Count 244 Seg Neutrophils % 55.4 Lymphocytes % 30.5 Monocytes % 10.2 Eosinophils % 3.5 Basophils % 0.4 Absolute Neutrophils 5.1 Absolute Lymphocytes 2.8 Absolute Monocytes 0.9 Absolute Eosinophils 0.3 Absolute Basophils 0.0 Sodium 140.8 Potassium 3.7 Chloride 110 H Carbon Dioxide 18 L Anion Gap 13 BUN 13 Creatinine 0.61 Est GFR ( Amer) > 60 Est GFR (Non-Af Amer) > 60 Glucose 100 Calcium 8.7 Impressions: Chest CT 11/08/17 00:00 IMPRESSION: Improved aeration right lower lobe, but there is a persistent underlying cystic lesion containing fluid and gas. Adjacent material plugging the bronchial tree. While this may represent cavitation of pneumonia, consider also underlying congenital pulmonary airway malformation. Differential would also include pulmonary sequestration and cystic bronchiectasis. Pulmonology referral for further evaluation recommended. Chest X-Ray 11/08/17 09:32 IMPRESSION: Recurrent/progressive right basilar pneumonia. Assessment & Plan - Time Time Spent with patient: 15-24 minutes Medications reviewed and adjusted accordingly: Yes Anticipated discharge: Home - Plan Summary Plan Summary: 1. Recurrent and persistent right basilar pneumonia. Plan is for a bronchoscopy in am. I 2. Morbid obesity patient really needs to lose weight 3. Diarrhea possibly antibiotic associated- resolved
[2017-11-10] MEDS: MONTELUKAST SODIUM 10 MG TABLET PO SCH (21:48)
[2017-11-11 05:34] LABS: PROTHROMBIN TIME 12.6 SEC (11.4-15.4)
[2017-11-11] MEDS: PIPERACILLIN SODIUM/TAZOBACTAM 4.5 GM in NORMAL SALINE 100 ML IV SCH ×3 (05:46→18:00)
[2017-11-11] MEDS: GUAIFENESIN 600 MG TABLET.SA PO SCH ×2 (10:25→22:00)
[2017-11-11] MEDS: LACTOBACILLUS ACIDOPHILUS 250 MG TAB PO SCH ×2 (10:25→18:00)
[2017-11-11] MEDS: ENOXAPARIN SODIUM INJ 40 MG/0.4 ML DISP.SYRIN SUBCUT SCH (12:04)
--- NOTE | 2017-11-11 12:23 | PDOC PROGRESS REPORT ---
Subjective Progress Note for:: 11/11/17 Subjective:: This patient was admitted with recurrent pneumonia over the last few weeks. It appears she has been treated with various antibiotics as is currently on Zosyn intravenously. Had been on doxycycline as well as Levaquin at various times. There is a history of recurrent pneumonia for 3 years. Her white count was 16.3 on initial presentation. Diarrhea has subsided and patient feels better She had been NPO overnight however bronchoscopy is not scheduled Reason For Visit: PNA Physical Exam Vital Signs: Temp Pulse Resp BP Pulse Ox 97.3 F 75 17 133/72 H 97 11/11/17 03:22 11/11/17 07:00 11/11/17 03:22 11/11/17 03:22 11/11/17 03:22 Intake & Output 11/10/17 11/11/17 11/12/17 06:59 06:59 06:59 Intake Total 1446 2096 Balance 1446 2096 Weight 158 kg 157.3 kg General appearance: PRESENT: no acute distress, morbidly obese, well-developed, well-nourished Head exam: PRESENT: atraumatic, normocephalic Eye exam: PRESENT: conjunctiva pink, EOMI, PERRLA. ABSENT: scleral icterus Ear exam: PRESENT: normal external ear exam Mouth exam: PRESENT: moist, tongue midline Neck exam: ABSENT: carotid bruit, JVD, lymphadenopathy, thyromegaly Respiratory exam: PRESENT: decreased breath sounds, rhonchi. ABSENT: rales, wheezes Cardiovascular exam: PRESENT: RRR. ABSENT: diastolic murmur, rubs, systolic murmur Pulses: PRESENT: normal dorsalis pedis pul Vascular exam: PRESENT: normal capillary refill GI/Abdominal exam: PRESENT: normal bowel sounds, soft. ABSENT: distended, guarding, mass, organolmegaly, rebound, tenderness Rectal exam: PRESENT: deferred Extremities exam: PRESENT: full ROM. ABSENT: calf tenderness, clubbing, pedal edema Neurological exam: PRESENT: alert, awake, oriented to person, oriented to place , oriented to time, oriented to situation, CN II-XII grossly intact. ABSENT: motor sensory deficit Psychiatric exam: PRESENT: appropriate affect, normal mood. ABSENT: homicidal ideation, suicidal ideation Skin exam: PRESENT: dry, intact, warm. ABSENT: cyanosis, rash Results Laboratory Results: 11/10/17 05:57 11/10/17 05:57 Impressions: Chest CT 11/08/17 00:00 IMPRESSION: Improved aeration right lower lobe, but there is a persistent underlying cystic lesion containing fluid and gas. Adjacent material plugging the bronchial tree. While this may represent cavitation of pneumonia, consider also underlying congenital pulmonary airway malformation. Differential would also include pulmonary sequestration and cystic bronchiectasis. Pulmonology referral for further evaluation recommended. Chest X-Ray 11/08/17 09:32 IMPRESSION: Recurrent/progressive right basilar pneumonia. Assessment & Plan - Time Time Spent with patient: Less than 15 minutes Medications reviewed and adjusted accordingly: Yes Anticipated discharge: Home Within: within 24 hours - Inpatient Certification Based on my medical assessment, after consideration of the patient's comorbidities, presenting symptoms, or acuity I expect that the services needed warrant INPATIENT care.: Yes Medical Necessity: Need Close Monitoring Due to Risk of Patient Decompensation, Need for IV Antibiotics - Plan Summary Plan Summary: 1. Recurrent and persistent right basilar pneumonia. Entry Level Machine Operator indicates thru RN that bronchoscopy will be done as outpatient if indicated and he will see patient in 2 weeks. This has been relayed to patient 2. Morbid obesity- advised to lose weight 3. Diarrhea possibly antibiotic associated- resolved 4, Plan to dc in am
[2017-11-11] MEDS: MONTELUKAST SODIUM 10 MG TABLET PO SCH (22:00)
[2017-11-12] MEDS: ACETAMINOPHEN 325 MG TABLET PO PRN (01:09)
[2017-11-12] MEDS: PIPERACILLIN SODIUM/TAZOBACTAM 4.5 GM in NORMAL SALINE 100 ML IV SCH ×4 (01:09→17:26)
[2017-11-12] MEDS ORDERED: GLUCAGON,HUMAN RECOMB 1 MG INJ SUBCUT PRN (02:20)
[2017-11-12] MEDS ORDERED: DEXTROSE 50%-WATER 25 GM/50 ML DISP.SYRIN IV PRN ×2 (02:20)
[2017-11-12] MEDS ORDERED: DEXTROSE 40% GEL 15 GM TUBE PO PRN ×2 (02:20)
--- NOTE | 2017-11-12 06:39 | PROGRESS NOTE E ---
Progress Note NAME: PHIL GALVIN : 1990 AGE: 27Y DATE: 11/11/2017 ROOM: 532 SUBJECTIVE: The patient is a 27-year-old female with a history of pneumonia, right lower lobe back in September 2017. Pulmonary infiltrate detected in the right lung base on a chest x-ray back in July 2017 and was treated for pneumonia and thought to have recurrent pneumonia, but patient had right lower lobe pneumonia in September. The infiltrate in the right lower lobe has completely resolved significantly leaving a small infiltrate on the right lung base medially posterior lung. The patient came in because of nausea and vomiting this hospitalization, , but was not coughing any productive yellow , green phlegm. White count was 16,000 on admission and treated with Zosyn IV for pneumonia. Patient was unable to expectorate any sputum over the last 2-3 days for sputum AFB, bacteria and fungi. There was no persistence of nausea and vomiting, the reason for which the patient was admitted. The patient currently is feeling a lot better. No hemoptysis. No chest pain. No increased shortness of breath. The patient claimed that last September 2017 when she was admitted, she was given IV antibiotics, vancomycin, and Levaquin for about 5-7 days and sent home on doxycycline for 7 days. She does not have any insurance. She went to the emergency department for followup. She was seen a few days prior to this admission with persistent infiltrates in the right lung base and was given Levaquin 750 mg x 5 days which she did not complete and which caused nausea and vomiting. The patient hence, came back to ED and readmitted and started on IV Zosyn. PHYSICAL EXAMINATION: GENERAL: The patient is awake, alert, oriented x3. VITAL SIGNS: A blood pressure of 107/62, temperature 98 degrees Fahrenheit. There is no fever over the last 3 days to 4 days. Respiratory rate is 12, saturation 100% on room air. EYES: No jaundice or pallor. EARS, NOSE, AND THROAT: No ear drainage. No nasal discharge. CHEST/LUNGS: No wheezing, no rhonchi, and coarse crackles. CARDIOVASCULAR: S1, S2 distant. Normal rate, regular rhythm. ABDOMEN: Flat with positive bowel sounds. Soft, nondistended, nontender. EXTREMITIES: No joint swelling or cellulitis. LABORATORY: CBC done yesterday, 11/10/2017 showed white count of 9.2 from 16.3 on 11/08. Hemoglobin is 12.9, platelet is 244. No bands noted. PT and INR were normal done today. Chemistry also showed sodium is 140, potassium 3.7, chloride 110. Carbon dioxide went down to 18 from 21. BUN is 13 and creatinine is 0.61. Glucose is 100, calcium 8.7. ASSESSMENT: 1. RIGHT LOWER LOBE PNEUMONIA, PROBABLY INFECTED PNEUMATOCELE; CANNOT RULE OUT CAVITATION. ENDOBRONCHIAL TUMOR OR MUCUS PLUG, RIGHT LOWER LOBE, BRONCHUS PROXIMAL TO PNEUMATOCELE (OR CAVITATION). 2. MORBID OBESITY. PLAN/RECOMMENDATIONS: Will schedule patient for flexible bronchoscopy on Saturday morning. Will hold the discharge tomorrow. Will schedule patient for flexible bronchoscopy so we can have a definitive microbiologic diagnosis and determine whether there are any endobronchial lesions in the right lower lobe. We plan to do bronchial lavage and bronchial alveolar lavage. Will hold Lovenox starting tomorrow. Recommend continue Zosyn IV for now. DICTATING PHYSICIAN: EARL GRADY MD,HAMMAD,MPH [id number] PHY#: [id number] ID: [id number] JOB#: [id number] ACCT: [id number] cc: > MTDD
[2017-11-12] MEDS: GUAIFENESIN 600 MG TABLET.SA PO SCH ×2 (10:30→21:45)
[2017-11-12] MEDS: LACTOBACILLUS ACIDOPHILUS 250 MG TAB PO SCH ×2 (10:30→17:26)
--- NOTE | 2017-11-12 14:46 | PDOC PROGRESS REPORT ---
Subjective Progress Note for:: 11/12/17 Subjective:: This patient was admitted with recurrent pneumonia over the last few weeks. It appears she has been treated with various antibiotics as is currently on Zosyn intravenously. Had been on doxycycline as well as Levaquin at various times. There is a history of recurrent pneumonia for 3 years. Her white count was 16.3 on initial presentation. Diarrhea has subsided and patient feels better She is scheduled for bronchoscopy in am Reason For Visit: PNA Physical Exam Vital Signs: Temp Pulse Resp BP Pulse Ox 98.4 F 81 14 104/57 L 98 11/12/17 08:26 11/12/17 14:00 11/12/17 08:26 11/12/17 08:26 11/12/17 08:26 Intake & Output 11/11/17 11/12/17 11/13/17 06:59 06:59 06:59 Intake Total 2096 1016 Balance 2096 1016 Weight 157.3 kg 157.3 kg General appearance: PRESENT: no acute distress Head exam: PRESENT: atraumatic Eye exam: PRESENT: conjunctiva pink, EOMI, PERRLA. ABSENT: scleral icterus Neck exam: ABSENT: carotid bruit, JVD, lymphadenopathy, thyromegaly Respiratory exam: PRESENT: clear to auscultation jourdan. ABSENT: rales, rhonchi, wheezes Cardiovascular exam: PRESENT: RRR. ABSENT: diastolic murmur, rubs, systolic murmur GI/Abdominal exam: PRESENT: normal bowel sounds, soft. ABSENT: distended, guarding, mass, organolmegaly, rebound, tenderness Rectal exam: PRESENT: deferred Extremities exam: PRESENT: full ROM. ABSENT: calf tenderness, clubbing, pedal edema Neurological exam: PRESENT: alert, awake, oriented to person, oriented to place , oriented to time Results Laboratory Results: 11/10/17 05:57 11/10/17 05:57 Impressions: Chest CT 11/08/17 00:00 IMPRESSION: Improved aeration right lower lobe, but there is a persistent underlying cystic lesion containing fluid and gas. Adjacent material plugging the bronchial tree. While this may represent cavitation of pneumonia, consider also underlying congenital pulmonary airway malformation. Differential would also include pulmonary sequestration and cystic bronchiectasis. Pulmonology referral for further evaluation recommended. Chest X-Ray 11/08/17 09:32 IMPRESSION: Recurrent/progressive right basilar pneumonia. Assessment & Plan - Time Time Spent with patient: 15-24 minutes Medications reviewed and adjusted accordingly: Yes Anticipated discharge: Home Within: within 48 hours - Plan Summary Plan Summary: 1. Recurrent and persistent right basilar pneumonia. Bronchoscopy is scheduled for am as per Dr. James's note 2. Morbid obesity- advised to lose weight 3. Diarrhea possibly antibiotic associated- resolved 4. Possible dc after bronch in am if stable.
--- NOTE | 2017-11-12 21:29 | PROGRESS NOTE E ---
Progress Note NAME: PHIL GALVIN : 1990 AGE: 27Y DATE: 11/12/2017 ROOM: 532 SUBJECTIVE: Patient is a 27-year-old female who came in with pneumonia, right lower lobe with cavitation versus infected pneumatocele and possible endobronchial lesion. Patient currently feeling better. No fever. No chills. Denies any hemoptysis or chest pain. Denies any increased shortness of breath or increasing cough or purulent sputum production. No upper back pain. Denies any nausea, vomiting or diarrhea. No abdominal pain. Patient scheduled for flexible bronchoscopy tomorrow with possible bronchial lavage and endobronchial biopsy. Patient agreed with the procedure and provided consent. OBJECTIVE: GENERAL: Patient is awake, alert, coherent, oriented x3. VITAL SIGNS: Temperature 98.4 with a T max of 99.1, a pulse rate of 89, blood pressure is 104/57, and respiratory rate of 14, saturation is 98% at room air. EYES: No jaundice or pallor. EARS, NOSE AND THROAT: No ear drainage noted. No nasal discharge. HEAD AND NECK: Normocephalic. Neck supple. CHEST AND LUNGS: No wheezing. No rhonchi. No coarse crackles. CARDIOVASCULAR: S1, S2 distinct. Normal rate, regular rhythm. ABDOMEN: Flabby. Positive bowel sounds. Soft, nondistended. EXTREMITIES: No joint swelling. LABORATORY DATA: There are no new labs done today. ASSESSMENT: 1. PNEUMONIA, RIGHT LOWER LOBE WITH POSSIBLE CAVITATION VERSUS INFECTED PNEUMATOCELE. 2. MORBID OBESITY. PLAN AND RECOMMENDATIONS: We will schedule patient for flexible bronchoscopy tomorrow with washing, possible bronchoalveolar lavage and possible endobronchial biopsy if some endobronchial lesion is noted. Discussed procedures with the patient again tonight and patient provided consent to the indications, risks, and possible complications of the procedure. The patient verbalized understanding of the indications, risks and possible complications of the procedure. DICTATING PHYSICIAN: EARL GRADY MD,HAMMAD,MPH [id number] PHY#: [id number] ID: [id number] JOB#: [id number] ACCT: [id number] cc: > MTDD
[2017-11-12] MEDS: MONTELUKAST SODIUM 10 MG TABLET PO SCH (21:45)
[2017-11-13] MEDS: PIPERACILLIN SODIUM/TAZOBACTAM 4.5 GM in NORMAL SALINE 100 ML IV SCH ×5 (00:51→23:45)
[2017-11-13 05:44] LABS: ABSOLUTE EOSINOPHILS # (AUTO) 0.4 10^3/uL (0.0-0.6); ABSOLUTE LYMPHOCYTES (AUTO) 3.4 10^3/uL (0.5-4.7); ABSOLUTE MONOCYTES (AUTO) 0.8 10^3/uL (0.1-1.4); ABSOLUTE NEUT (AUTO) 4.1 10^3/uL (1.7-8.2); BASOPHILS % (AUTO) 0.5 % (0-2); EOSINOPHILS % (AUTO) 4.2 % (0-6); HEMATOCRIT 39.9 % (36.0-47.0); HEMOGLOBIN 13.2 g/dL (12.0-15.5); LYMPHOCYTES % (AUTO) 38.9 % (13-45); MEAN CORPUSCULAR HEMOGLOBIN 27.7 pg (27.0-33.4); MEAN CORPUSCULAR HGB CONC 33.1 g/dL (32.0-36.0); MEAN CORPUSCULAR VOLUME 84 fl (80-97); MONOCYTES % (AUTO) 9.5 % (3-13); PLATELET COUNT 309 10^3/uL (150-450); RED BLOOD COUNT 4.78 10^6/uL (3.72-5.28); RED CELL DISTRIBUTION WIDTH 16.5 % (11.5-14.0); SEGMENTED NEUTROPHILS % (AUTO) 46.9 % (42-78); TOTAL CELLS COUNTED % (AUTO) 100 %; WHITE BLOOD COUNT 8.7 10^3/uL (4.0-10.5)
[2017-11-13 05:52] LABS: INTERNATIONAL RATION (INR) 0.93; PROTHROMBIN TIME 12.9 SEC (11.4-15.4)
[2017-11-13 05:53] LABS: PARTIAL THROMBOPLASTIN TIME 31.9 SEC (23.5-35.8)
[2017-11-13 05:57] LABS: ANION GAP 14 (5-19); BLOOD UREA NITROGEN 13 mg/dL (7-20); CALCIUM 9.3 mg/dL (8.4-10.2); CARBON DIOXIDE 22 mmol/L (22-30); CHLORIDE 107 mmol/L (98-107); GLUCOSE 111 mg/dL (75-110); POTASSIUM 4.5 mmol/L (3.6-5.0); SODIUM 142.9 mmol/L (137-145)
[2017-11-13] MEDS ORDERED: LIDOCAINE 2% INJ (20 MG/ML) 20 ML MDV ONE (07:58)
[2017-11-13] MEDS ORDERED: LIDOCAINE 2% JELLY 30 ML TUBE ONE (07:58)
[2017-11-13] MEDS ORDERED: NALOXONE HCL INJ/PF 0.4 MG/1 ML SDV ONE (07:59)
[2017-11-13] MEDS ORDERED: EPINEPHRINE INJ/PF 1 MG/1 ML AMPULE ONE (07:59)
[2017-11-13] MEDS ORDERED: EPINEPHRINE INJ 1 MG/10 ML DISP.SYRIN ONE (08:00)
[2017-11-13] MEDS ORDERED: FLUMAZENIL INJ 0.5 MG/5 ML VIAL ONE (08:00)
[2017-11-13] MEDS: MIDAZOLAM 2 MG/2 ML INJ ONE ×18 (09:19→10:15)
[2017-11-13] MEDS: FENTANYL CITRATE INJ/PF 100 MCG/2 ML AMPUL ONE ×8 (09:32→10:18)
[2017-11-13] MEDS ORDERED: MIDAZOLAM 2 MG/2 ML INJ ONE ×2 (09:48→10:22)
[2017-11-13] MEDS ORDERED: FENTANYL CITRATE INJ/PF 100 MCG/2 ML AMPUL ONE (10:23)
[2017-11-13] MEDS: LACTOBACILLUS ACIDOPHILUS 250 MG TAB PO SCH ×2 (11:09→17:48)
[2017-11-13] MEDS: GUAIFENESIN 600 MG TABLET.SA PO SCH ×2 (11:09→21:40)
--- NOTE | 2017-11-13 11:34 | OPERATIVE REPORT E ---
Operative Report NAME: PHIL GALVIN : 1990 AGE: 27Y DATE OF SURGERY: 11/13/2017 ROOM: [facility] HISTORY: The patient is a 27-year-old female who came in with cavitary pneumonia, right lower lobe posterior segment. The patient underwent flexible bronchoscopy with bronchial washing. PROCEDURE: Flexible bronchoscopy with bronchial washing and attempt to extract or biopsy the right lower lobe posterior basal segment bronchial lesion. INDICATION: Cavitary pneumonia, right lower lobe. SURGEON: EARL GRADY M.D. SEDATION: Conscious sedation using IV Versed and IV fentanyl. ANESTHESIA: Topical anesthesia. BLOOD LOSS: None. SPECIMEN: Bronchial washing with some bronchial particles (or yellow green semi-solid phlegm). DESCRIPTION OF PROCEDURE: Consent was obtained from the patient. The patient verbalized understanding of the indication, risks, and potential complications of the procedure. The patient was given Versed at increments of 0.5 mg to a total dose of 9 mg IV, and Fentanyl at increments of 25 mcg to a total dose of 20 mcg IV. Lidocaine 2% solution, 5 mL was given by nebulizer and 2% lidocaine solution, 3 mL was given by atomizer and applied to the posterior pharyngeal wall. Flexible bronchoscope was inserted through the mouth. Lidocaine 1% solution at 1 mL aliquots was applied to the oropharyngeal area, vocal cords, trachea, reji, and right and left mainstem bronchus as the flexible bronchoscope was advanced. The vocal cords appeared normal. No lesions noted. Trachea appeared normal. The reji appeared sharp and midline. No apparent lesions noted. Left upper lobe bronchial airways and the left lower lobe bronchial airways appeared normal, no lesions noted, and they were patent. The right upper lobe bronchial airways appeared normal. The right middle lobe bronchial airways appeared normal. The right lower lobe airways appeared normal except for the bronchus going to the right lower lobe posterior basal segment, which showed some white fragment. Tried to remove and dislodge the bronchial lesion with a forcep, bronchial flushing with sterile saline and suction but unable to dislodge, remove or biopsy the bronchial lesion, which was almost completely obstructing the bronchial lumen. The endobronchial lesion may be mucoid tumor, mucus plug, or a foreign body. Bronchial washing was performed mostly on the right lower lobe. Will send the bronchial washing for cytology and microbiology. Will refer the patient to a tertiary care center such as [facility] or [facility] for further evaluation and management of this distal endobronchial lesion in the right lower lobe posterior basal segment. Patient may need to be endotracheally intubated with anesthesia support and she would require more advanced bronchoscopy tools and equipments, to be able to remove or treat the endobronchial obstruction, which may be the reason for recurrent pneumonia or cavitation. The patient tolerated the procedure very well. DICTATING PHYSICIAN: EARL GRADY MD,HAMMAD,MPH [id number] PHY#: [id number] ID: [id number] JOB#: [id number] ACCT: [id number] cc:EARL GRADY M.D. > MTDD
--- NOTE | 2017-11-13 19:07 | PDOC TRANSFER SUMMARY ---
General Admission Date/PCP: 11/08/17 13:34 Admission Date: 11/08/17 Transfer Date: 11/13/17 Accepting Facility: [facility] Accepting Physician: Dr. Dunbar Resuscitation Status: Full Code - Transfer Diagnosis (1) Endobronchial mass Is this a current diagnosis for this admission?: Yes Diagnosis Summary: Status post bronchoscopy performed on 11/13/2017. She does have an endobronchial lesion that was not able to be accessed. Dr. Baldwin believes this could be a mucoid tumor versus foreign body versus debris and mucus plugging. He believed that she needs interventional pulmonology. I did speak to pulmonology at [facility] who recommended a transfer under the hospitalist service with a referral consultation to pulmonology. Dr. Dunbar has graciously accepted the patient in transfer. (2) Pneumonia Is this a current diagnosis for this admission?: Yes Diagnosis Summary: This is a postobstructive pneumonia. Continue IV Zosyn to cover probable gram- negative organisms. (3) Diarrhea Is this a current diagnosis for this admission?: Yes Diagnosis Summary: Related to antibiotics. Resolving (4) Morbid obesity with BMI of 50.0-59.9, adult Is this a current diagnosis for this admission?: Yes Diagnosis Summary: Dietary discretion is advised - Transfer Medications Transfer Medications: Current Medications Acetaminophen (Tylenol 325 Mg Tablet) 650 mg PO Q4HP PRN PRN Reason: FEVER >101 Stop: 12/08/17 12:31 Last Admin: 11/12/17 01:09 Dose: 650 mg Dextrose (Dextrose Inj 50% Syringe (25 Gm/50 Ml)) 12.5 gm IV PRN PRN; Protocol PRN Reason: FOR BG 50-69 IN ALERT PATIENT Stop: 12/12/17 02:19 Dextrose (Dextrose Inj 50% Syringe (25 Gm/50 Ml)) 25 gm IV PRN PRN; Protocol PRN Reason: See Label Comments Stop: 12/12/17 02:19 Glucagon (Glucagen Inj 1 Mg Vial) 1 mg SUBCUT PRN PRN; Protocol PRN Reason: Evaluate for BG < 70 Stop: 12/12/17 02:19 Glucose (Glutose 40% Gel 15 Gm Tube) 15 gm PO PRN PRN; Protocol PRN Reason: For BG 50-69 in Alert Patient Stop: 12/12/17 02:19 Glucose (Glutose 40% Gel 15 Gm Tube) 30 gm PO PRN PRN; Protocol PRN Reason: FOR BG < 50 IN ALERT PATIENT Stop: 12/12/17 02:19 Guaifenesin (Mucinex Sr 600 Mg Tablet.Sa) 1,200 mg PO Q12 HUE Stop: 12/08/17 21:59 Last Admin: 11/13/17 11:09 Dose: Not Given Piperacillin Sod/Tazobactam (Sod 4.5 gm/ Sodium Chloride) 100 mls @ 200 mls/hr IV Q6 HUE Stop: 11/15/17 17:59 Last Admin: 11/13/17 17:48 Dose: 4.5 gm Lactobacillus Acidophilus (Bacid 250 Mg Tablet) 500 mg PO BID HUE Stop: 12/08/17 17:59 Last Admin: 11/13/17 17:48 Dose: 500 mg Loperamide HCl (Imodium 2 Mg Capsule) 2 mg PO Q4HP PRN PRN Reason: DIARRHEA Stop: 12/09/17 16:17 Last Admin: 11/09/17 19:52 Dose: 2 mg Montelukast Sodium (Singulair 10 Mg Tablet) 10 mg PO QHS HUE Stop: 12/08/17 21:59 Last Admin: 11/12/17 21:45 Dose: 10 mg Ondansetron HCl (Zofran Inj/Pf 4 Mg/2 Ml Sdv) 4 mg IV Q6HP PRN PRN Reason: NAUSEA Stop: 12/08/17 20:27 Last Admin: 11/09/17 10:25 Dose: 4 mg Sodium Chloride (Saline Flush 2.5 Ml Monoject Prefil Syrin) 2.5 ml IV Q8 HUE Stop: 12/08/17 13:59 Last Admin: 11/13/17 13:09 Dose: Not Given - Allergies Allergies/Adverse Reactions: No Known Allergies Allergy (Verified 11/08/17 09:25) - Diet/Activity Discharge Diet: Regular Discharge Activity: Activity As Tolerated Hospital Course Hospital Course: The patient is a 27-year-old morbidly obese female with a past medical history of recurrent pneumonias. She presented to the emergency room with increased cough and sputum production and diarrhea. She had recently been treated in the emergency department and had been discharged on Levaquin. The patient was admitted to the hospital to our facility on 10/03/2017 3 10/06/2017. At that time she was found to have a right lower lobe pneumonia. The patient at that time had failed outpatient treatment with doxycycline. When she arrived at the emergency room this time she was found to have a persistent pneumonia. Stool studies in the emergency room were negative for Clostridium difficile. The patient had a markedly abnormal CT scan and a consult was placed pulmonology. This morning she underwent bronchoscopy. She was found to have an endobronchial lesion that could be a result of a mucoid tumor versus foreign body or debris causing mucous plugging. Unfortunately his scope was unable to reach this. I spoke to her tuyere fitter who recommended interventional pulmonology. I spoke to [facility] and the hospitalist service has graciously agreed to accept the patient in transfer. They will consult pulmonology when she arrives. She will be transferred to [facility] under the care of Dr. Dunbar as soon as a bed is found. Physical Exam Vital Signs: Temp Pulse Resp BP Pulse Ox 97.7 F 83 16 115/61 97 11/13/17 16:00 11/13/17 16:00 11/13/17 16:00 11/13/17 16:00 11/13/17 16:00 Intake & Output 11/12/17 11/13/17 11/14/17 06:59 06:59 06:59 Intake Total 9520 687 8571 Output Total 2 300 Balance 1298 444 5209 Weight 157.3 kg 157.2 kg General appearance: PRESENT: no acute distress, morbidly obese Head exam: PRESENT: atraumatic, normocephalic Mouth exam: PRESENT: moist, tongue midline Respiratory exam: PRESENT: decreased breath sounds, retraction - She is diminished in the right lower base. Cardiovascular exam: PRESENT: RRR. ABSENT: diastolic murmur, rubs, systolic murmur GI/Abdominal exam: PRESENT: soft, other. ABSENT: tenderness - Her abdomen is morbidly obese. I cannot assess for organomegaly due to the patient's body 10 habitus. Her abdomen is nontender. Rectal exam: PRESENT: deferred Extremities exam: PRESENT: full ROM. ABSENT: calf tenderness, clubbing, pedal edema Musculoskeletal exam: PRESENT: ambulatory Neurological exam: PRESENT: alert, awake, oriented to person, oriented to place , oriented to time, oriented to situation, CN II-XII grossly intact. ABSENT: motor sensory deficit Psychiatric exam: PRESENT: appropriate affect, normal mood. ABSENT: homicidal ideation, suicidal ideation Skin exam: PRESENT: dry, intact, warm. ABSENT: cyanosis, rash Results Laboratory Results: 11/13/17 04:58 11/13/17 04:58 11/13/17 11/13/17 04:58 04:58 WBC 8.7 RBC 4.78 Hgb 13.2 Hct 39.9 MCV 84 MCH 27.7 MCHC 33.1 RDW 16.5 H Plt Count 309 Seg Neutrophils % 46.9 Lymphocytes % 38.9 Monocytes % 9.5 Eosinophils % 4.2 Basophils % 0.5 Absolute Neutrophils 4.1 Absolute Lymphocytes 3.4 Absolute Monocytes 0.8 Absolute Eosinophils 0.4 Absolute Basophils 0.0 Sodium 142.9 Potassium 4.5 Chloride 107 Carbon Dioxide 22 Anion Gap 14 BUN 13 Creatinine 0.59 Est GFR ( Amer) > 60 Est GFR (Non-Af Amer) > 60 Glucose 111 H Calcium 9.3 Impressions: Chest CT 11/08/17 00:00 IMPRESSION: Improved aeration right lower lobe, but there is a persistent underlying cystic lesion containing fluid and gas. Adjacent material plugging the bronchial tree. While this may represent cavitation of pneumonia, consider also underlying congenital pulmonary airway malformation. Differential would also include pulmonary sequestration and cystic bronchiectasis. Pulmonology referral for further evaluation recommended. Chest X-Ray 11/08/17 09:32 IMPRESSION: Recurrent/progressive right basilar pneumonia. Plan Time Spent: Greater than 30 Minutes
--- NOTE | 2017-11-13 19:11 | PDOC PROGRESS REPORT ---
Subjective Progress Note for:: 11/13/17 Subjective:: Please see my dictated discharge summary. Patient's been accepted to [facility] for interventional pulmonology. She will be transferred when a bed is found. However they do have a long waiting list. The recommendation was to explore whether other facilities have interventional pulmonology and get her on the list there as well. I have made all the arrangements and dictated transfer summary for [facility]. I have not contacted any further hospitals. I do believe that [facility] has an interventional paving stone installer as well. I would try to pursue transfer there tomorrow as well. Reason For Visit: PNA Physical Exam Vital Signs: Temp Pulse Resp BP Pulse Ox 97.7 F 83 16 115/61 97 11/13/17 16:00 11/13/17 16:00 11/13/17 16:00 11/13/17 16:00 11/13/17 16:00 Intake & Output 11/12/17 11/13/17 11/14/17 06:59 06:59 06:59 Intake Total 7334 966 6162 Output Total 2 300 Balance 1030 091 8399 Weight 157.3 kg 157.2 kg General appearance: PRESENT: morbidly obese Head exam: PRESENT: atraumatic, normocephalic Respiratory exam: PRESENT: clear to auscultation jourdan, decreased breath sounds - Diminished in the right lower base. ABSENT: rales, rhonchi, wheezes Cardiovascular exam: PRESENT: RRR. ABSENT: diastolic murmur, rubs, systolic murmur GI/Abdominal exam: PRESENT: other - Obese Rectal exam: PRESENT: deferred Extremities exam: PRESENT: full ROM. ABSENT: calf tenderness, clubbing, pedal edema Neurological exam: PRESENT: alert, awake, oriented to person, oriented to place , oriented to time, oriented to situation, CN II-XII grossly intact. ABSENT: motor sensory deficit Psychiatric exam: PRESENT: appropriate affect, normal mood. ABSENT: homicidal ideation, suicidal ideation Skin exam: PRESENT: dry, intact, warm. ABSENT: cyanosis, rash Results Laboratory Results: 11/13/17 04:58 11/13/17 04:58 11/13/17 11/13/17 04:58 04:58 WBC 8.7 RBC 4.78 Hgb 13.2 Hct 39.9 MCV 84 MCH 27.7 MCHC 33.1 RDW 16.5 H Plt Count 309 Seg Neutrophils % 46.9 Lymphocytes % 38.9 Monocytes % 9.5 Eosinophils % 4.2 Basophils % 0.5 Absolute Neutrophils 4.1 Absolute Lymphocytes 3.4 Absolute Monocytes 0.8 Absolute Eosinophils 0.4 Absolute Basophils 0.0 Sodium 142.9 Potassium 4.5 Chloride 107 Carbon Dioxide 22 Anion Gap 14 BUN 13 Creatinine 0.59 Est GFR ( Amer) > 60 Est GFR (Non-Af Amer) > 60 Glucose 111 H Calcium 9.3 Impressions: Chest CT 11/08/17 00:00 IMPRESSION: Improved aeration right lower lobe, but there is a persistent underlying cystic lesion containing fluid and gas. Adjacent material plugging the bronchial tree. While this may represent cavitation of pneumonia, consider also underlying congenital pulmonary airway malformation. Differential would also include pulmonary sequestration and cystic bronchiectasis. Pulmonology referral for further evaluation recommended. Chest X-Ray 11/08/17 09:32 IMPRESSION: Recurrent/progressive right basilar pneumonia. Assessment & Plan - Diagnosis (1) Endobronchial mass Is this a current diagnosis for this admission?: Yes Plan: She has been accepted at [facility]. Transfer summary has been done. Hopefully she can get out some time today or tomorrow. We should also explore other hospitals that can perform this procedure. (2) Pneumonia Qualifiers: Pneumonia type: due to unspecified organism Laterality: right Lung location: lower lobe of lung Qualified Code(s): J18.1 - Lobar pneumonia, unspecified organism Is this a current diagnosis for this admission?: Yes Plan: She has failed multiple courses of IVs and a antibiotics. Concerns for gram negatives at this point. Continue IV Zosyn. (3) Diarrhea Qualifiers: Diarrhea type: infectious Qualified Code(s): A09 - Infectious gastroenteritis and colitis, unspecified Is this a current diagnosis for this admission?: Yes Plan: She tested negative for Clostridium difficile. Likely related to multiple courses of antibiotics. (4) Morbid obesity with BMI of 50.0-59.9, adult Is this a current diagnosis for this admission?: Yes Plan: Dietary discretion is advised - Time Time Spent with patient: 25-34 minutes - Inpatient Certification Medical Necessity: Need for IV Antibiotics - Inpatient hospitalization remains necessary. The patient will need to be transferred to a tertiary center where they have interventional pulmonology available. She will be transferred soon as a bed is found. Again her transfer summary has been completed., Other
[2017-11-13] MEDS: MONTELUKAST SODIUM 10 MG TABLET PO SCH (21:39)
--- NOTE | 2017-11-13 22:49 | PROGRESS NOTE E ---
Progress Note NAME: PHIL GALVIN : 1990 AGE: 27Y DATE: 11/13/2017 ROOM: 532 SUBJECTIVE: Patient is a 27-year-old female who had flexible bronchoscopy with bronchial washing this morning and noted an endobronchial lesion at the right lower lobe, posterior basal segment distal airways. Attempts to remove the endobronchial lesion using the forceps failed. Patient received incremental doses to maximum doses of 9 mg of Versed and 200 mcg of Fentanyl during the procedure, and started waking up and the procedure was ended. Bronchial washing was performed mostly on the right lower lobe and suctioning of the secretions. Able to withdraw some dried mucous debris from the right lower lobe. Bronchial washing specimen will be send for AFB, bacterial and fungal cultures There was no remarkable bleeding. The endobronchial lesion appeared to be difficult to remove and the endobronchial lesion may be a mucoid tumor or foreign debris or deep-seated mucous plugs. Patient appeared to tolerate the procedure. Currently, patient is feeling well. Denies any fever, chills. No increased cough, sputum production, hemoptysis. Denies any chest pain. OBJECTIVE: GENERAL: Tonight showed an awake patient. Alert, coherent, oriented x3. VITAL SIGNS: Temperature 98.4, blood pressure 118/72, heart rate of 80, respirations 16, saturation is 97% on room air. EYES: No jaundice or pallor. EARS, NOSE AND THROAT: No ear drainage noted. No nasal discharge. HEAD AND NECK: Normocephalic. No scalp tenderness. Neck supple. CHEST AND LUNGS: No wheezing. No rhonchi. No coarse crackles. CARDIOVASCULAR: S1, S2 distinct. Normal rate, regular rhythm. ABDOMEN: Flabby. Positive bowel sounds. Soft, nondistended, tender. EXTREMITIES: No joint swelling or cellulitis. LABORATORY DATA: This morning showed hemoglobin of 13.2, white count of 8.7, hematocrit 39.9, platelet count is 309. PT/INT showed PT of 12.9 normal, INR of 0.93 which is normal, PTT of 31.9 this is also normal. Chemistry done today showed sodium 142.9, potassium 4.5, chloride 07, carbon dioxide is 32, BUN is 13, creatinine is 0.59, glucose is 111 and calcium is 9.3. ASSESSMENT: ENDOBRONCHIAL LESION, RIGHT LOWER LOBE POSTERIOR BASAL SEGMENT. 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 PLAN AND RECOMMENDATIONS: 1. Patient will require endotracheal intubation with anesthesia support and interventional pulmonology to remove the endobronchial tumor, to reduce the recurrence of pneumonia and to help treat the current pneumonia to allow drainage of the fluids (possible abscess fluid)from the cavitation. 2. Continue IV antibiotics. 3. Recommend transfer to tertiary center status for further interventional pulmonology evaluation and management. [facility] has accepted the patient here today. Spoke to Dr.Momen Kristan cunningham and discussed the patient's condition and findings of the bronchoscopy today. DICTATING PHYSICIAN: EARL GRADY MD,HAMMAD,MPH [id number] PHY#: [id number] ID: [id number] JOB#: [id number] ACCT: [id number] cc: > MTDD
[2017-11-14] MEDS: PIPERACILLIN SODIUM/TAZOBACTAM 4.5 GM in NORMAL SALINE 100 ML IV SCH ×4 (05:50→23:05)
[2017-11-14] MEDS: LACTOBACILLUS ACIDOPHILUS 250 MG TAB PO SCH ×2 (09:00→17:18)
[2017-11-14] MEDS: GUAIFENESIN 600 MG TABLET.SA PO SCH ×2 (09:00→22:28)
--- NOTE | 2017-11-14 13:47 | PDOC PROGRESS REPORT ---
Subjective Progress Note for:: 11/14/17 Subjective:: This patient was admitted with recurrent pneumonia over the last few weeks. It appears she has been treated with various antibiotics as is currently on Zosyn intravenously. Had been on doxycycline as well as Levaquin at various times. There is a history of recurrent pneumonia for 3 years. Her white count was 16.3 on initial presentation. Diarrhea has resolved and patient feels better She is awaiting transfer to [place] Reason For Visit: PNA Physical Exam Vital Signs: Temp Pulse Resp BP Pulse Ox 98.3 F 83 16 117/72 97 11/14/17 12:00 11/14/17 12:00 11/14/17 12:00 11/14/17 12:00 11/14/17 12:00 Intake & Output 11/13/17 11/14/17 11/15/17 06:59 06:59 06:59 Intake Total 710 4818 Output Total 2 300 Balance 708 4518 Weight 157.2 kg 157.2 kg General appearance: PRESENT: no acute distress, morbidly obese Head exam: PRESENT: atraumatic Eye exam: PRESENT: conjunctiva pink, EOMI, PERRLA. ABSENT: scleral icterus Neck exam: PRESENT: carotid bruit Respiratory exam: PRESENT: clear to auscultation jourdan. ABSENT: rales, rhonchi, wheezes Cardiovascular exam: PRESENT: RRR. ABSENT: diastolic murmur, rubs, systolic murmur Extremities exam: PRESENT: full ROM. ABSENT: calf tenderness, clubbing, pedal edema Musculoskeletal exam: PRESENT: ambulatory Neurological exam: PRESENT: alert, awake, oriented to person, oriented to place , oriented to time, oriented to situation, CN II-XII grossly intact. ABSENT: motor sensory deficit Results Laboratory Results: 11/13/17 04:58 11/13/17 04:58 Impressions: Chest CT 11/08/17 00:00 IMPRESSION: Improved aeration right lower lobe, but there is a persistent underlying cystic lesion containing fluid and gas. Adjacent material plugging the bronchial tree. While this may represent cavitation of pneumonia, consider also underlying congenital pulmonary airway malformation. Differential would also include pulmonary sequestration and cystic bronchiectasis. Pulmonology referral for further evaluation recommended. Chest X-Ray 11/08/17 09:32 IMPRESSION: Recurrent/progressive right basilar pneumonia. Assessment & Plan - Time Time Spent with patient: 15-24 minutes Medications reviewed and adjusted accordingly: Yes Anticipated discharge: Tertiary [facility] - Inpatient Certification Based on my medical assessment, after consideration of the patient's comorbidities, presenting symptoms, or acuity I expect that the services needed warrant INPATIENT care.: Yes Medical Necessity: Need for IV Antibiotics - Plan Summary Plan Summary: Recurrent pneumonia Patient had a bronchoscopy done which revealed a distal endobronchial lesion in the right lower lobe posterior basal segment. Is currently awaiting transfer to a tertiary center for an interventional scratcher tender to remove or treat the endobronchial lesion which is the likely culprit for recurrent pneumonia or cavitation. 2. Right lower lobe endobronchial lesion 3. Morbid obesity
[2017-11-14] MEDS: ONDANSETRON HCL INJ/PF 4 MG/2 ML SDV IV PRN (15:26)
[2017-11-14] MEDS: MONTELUKAST SODIUM 10 MG TABLET PO SCH (22:28)
[2017-11-15] MEDS: PIPERACILLIN SODIUM/TAZOBACTAM 4.5 GM in NORMAL SALINE 100 ML IV SCH ×3 (05:59→16:44)
[2017-11-15] MEDS: GUAIFENESIN 600 MG TABLET.SA PO SCH ×2 (09:16→21:30)
[2017-11-15] MEDS: LACTOBACILLUS ACIDOPHILUS 250 MG TAB PO SCH ×2 (09:16→16:44)
[2017-11-15] MEDS: ONDANSETRON HCL INJ/PF 4 MG/2 ML SDV IV PRN ×2 (11:18→21:31)
[2017-11-15] MEDS: ACETAMINOPHEN 325 MG TABLET PO PRN (11:18)
--- NOTE | 2017-11-15 14:43 | PDOC PROGRESS REPORT ---
Subjective Progress Note for:: 11/15/17 Subjective:: This patient was admitted with recurrent pneumonia over the last few weeks. It appears she has been treated with various antibiotics as is currently on Zosyn intravenously. Had been on doxycycline as well as Levaquin at various times. There is a history of recurrent pneumonia for 3 years. Her white count was 16.3 on initial presentation. She is awaiting transfer to [place] Reason For Visit: PNA Physical Exam Vital Signs: Temp Pulse Resp BP Pulse Ox 100.3 F 87 16 130/79 H 99 11/15/17 12:00 11/15/17 12:00 11/15/17 12:00 11/15/17 12:00 11/15/17 12:00 Intake & Output 11/14/17 11/15/17 11/16/17 06:59 06:59 06:59 Intake Total 4818 3957 Output Total 300 Balance 4518 3957 Weight 157.2 kg 157.2 kg General appearance: PRESENT: no acute distress, well-developed, well-nourished Head exam: PRESENT: atraumatic, normocephalic Eye exam: PRESENT: PERRLA. ABSENT: scleral icterus Mouth exam: PRESENT: moist, tongue midline Neck exam: ABSENT: carotid bruit, JVD, lymphadenopathy, thyromegaly Respiratory exam: PRESENT: clear to auscultation jourdan. ABSENT: rales, rhonchi, wheezes Cardiovascular exam: PRESENT: RRR. ABSENT: diastolic murmur, rubs, systolic murmur Pulses: PRESENT: normal dorsalis pedis pul Vascular exam: PRESENT: normal capillary refill GI/Abdominal exam: PRESENT: normal bowel sounds, soft. ABSENT: distended, guarding, mass, organolmegaly, rebound, tenderness Rectal exam: PRESENT: deferred Extremities exam: PRESENT: full ROM. ABSENT: calf tenderness, clubbing, pedal edema Neurological exam: PRESENT: alert, awake, oriented to person, oriented to place , oriented to time, oriented to situation, CN II-XII grossly intact. ABSENT: motor sensory deficit Psychiatric exam: PRESENT: appropriate affect, normal mood. ABSENT: homicidal ideation, suicidal ideation Skin exam: PRESENT: dry, intact, warm. ABSENT: cyanosis, rash Results Laboratory Results: 11/13/17 04:58 11/13/17 04:58 11/13/17 10:21 Bronchial Washings Fungal Smear - Final 11/13/17 10:21 Bronchial Washings Fungal Smear - Final 11/13/17 10:21 Bronchial Washings Gram Stain - Final 11/13/17 10:21 Bronchial Washings Bronchial Washings Culture - Final NORMAL KAIN 11/13/17 10:21 Bronchial Washings AFB Smear Concentration - Final 11/13/17 10:21 Bronchial Washings Acid Fast Bacilli Smear - Final Impressions: Chest CT 11/08/17 00:00 IMPRESSION: Improved aeration right lower lobe, but there is a persistent underlying cystic lesion containing fluid and gas. Adjacent material plugging the bronchial tree. While this may represent cavitation of pneumonia, consider also underlying congenital pulmonary airway malformation. Differential would also include pulmonary sequestration and cystic bronchiectasis. Pulmonology referral for further evaluation recommended. Chest X-Ray 11/08/17 09:32 IMPRESSION: Recurrent/progressive right basilar pneumonia. Assessment & Plan - Time Time Spent with patient: 15-24 minutes Medications reviewed and adjusted accordingly: Yes Anticipated discharge: Tertiary Hospital Within: within 48 hours - Inpatient Certification Based on my medical assessment, after consideration of the patient's comorbidities, presenting symptoms, or acuity I expect that the services needed warrant INPATIENT care.: Yes Medical Necessity: Need for IV Antibiotics - Plan Summary Plan Summary: 1. Recurrent pneumonia Patient had a bronchoscopy done which revealed a distal endobronchial lesion in the right lower lobe posterior basal segment. Is currently awaiting transfer to a tertiary center for an interventional sheriff's officer to remove or treat the endobronchial lesion which is the likely culprit for recurrent pneumonia or cavitation. Still awaiting transfer to [place], called them today and says will call once bed available 2. Right lower lobe endobronchial lesion 3. Morbid obesity
[2017-11-15] MEDS: MONTELUKAST SODIUM 10 MG TABLET PO SCH (21:30)
[2017-11-16] MEDS: PIPERACILLIN SODIUM/TAZOBACTAM 4.5 GM in NORMAL SALINE 100 ML IV SCH ×3 (01:08→11:22)
[2017-11-16] MEDS: LACTOBACILLUS ACIDOPHILUS 250 MG TAB PO SCH (09:12)
[2017-11-16] MEDS: GUAIFENESIN 600 MG TABLET.SA PO SCH (09:12)
--- NOTE | 2017-11-16 12:32 | PDOC PROGRESS REPORT ---
Subjective Progress Note for:: 11/16/17 Subjective:: This patient was admitted with recurrent pneumonia over the last few weeks. It appears she has been treated with various antibiotics as is currently on Zosyn intravenously. Had been on doxycycline as well as Levaquin at various times. There is a history of recurrent pneumonia for 3 years. Her white count was 16.3 on initial presentation. She is awaiting transfer to [facility] and plan is for dc today as per nursing staff Reason For Visit: PNA Physical Exam Vital Signs: Temp Pulse Resp BP Pulse Ox 98.3 F 78 20 137/78 H 97 11/16/17 08:02 11/16/17 08:02 11/16/17 08:02 11/16/17 08:02 11/16/17 08:02 Intake & Output 11/15/17 11/16/17 11/17/17 06:59 06:59 06:59 Intake Total 3957 3460 Balance 3957 3460 Weight 157.2 kg 164.3 kg General appearance: PRESENT: no acute distress, morbidly obese, well-developed Head exam: PRESENT: atraumatic, normocephalic Neck exam: ABSENT: carotid bruit, JVD, lymphadenopathy, thyromegaly Respiratory exam: PRESENT: clear to auscultation jourdan. ABSENT: rales, rhonchi, wheezes GI/Abdominal exam: PRESENT: normal bowel sounds, soft. ABSENT: distended, guarding, mass, organolmegaly, rebound, tenderness Rectal exam: PRESENT: deferred Extremities exam: PRESENT: full ROM. ABSENT: calf tenderness, clubbing, pedal edema Neurological exam: PRESENT: alert, awake, oriented to person, oriented to place , oriented to time, oriented to situation, CN II-XII grossly intact. ABSENT: motor sensory deficit Psychiatric exam: PRESENT: appropriate affect Results Laboratory Results: 11/13/17 04:58 11/13/17 04:58 11/13/17 10:21 Bronchial Washings Fungal Smear - Final 11/13/17 10:21 Bronchial Washings Fungal Smear - Final 11/13/17 10:21 Bronchial Washings Gram Stain - Final 11/13/17 10:21 Bronchial Washings Bronchial Washings Culture - Final NORMAL KAIN Impressions: Chest CT 11/08/17 00:00 IMPRESSION: Improved aeration right lower lobe, but there is a persistent underlying cystic lesion containing fluid and gas. Adjacent material plugging the bronchial tree. While this may represent cavitation of pneumonia, consider also underlying congenital pulmonary airway malformation. Differential would also include pulmonary sequestration and cystic bronchiectasis. Pulmonology referral for further evaluation recommended. Chest X-Ray 11/08/17 09:32 IMPRESSION: Recurrent/progressive right basilar pneumonia. Assessment & Plan - Time Time Spent with patient: Less than 15 minutes Medications reviewed and adjusted accordingly: Yes Anticipated discharge: Other - [facility] Within: Other - today - Inpatient Certification Based on my medical assessment, after consideration of the patient's comorbidities, presenting symptoms, or acuity I expect that the services needed warrant INPATIENT care.: Yes - Plan Summary Plan Summary: 1. Recurrent pneumonia Patient to be transferred to [facility] today 2. Right lower lobe endobronchial lesion 3. Morbid obesity
[2017-11-16 12:33] VITALS: BP 149/93
== END 2017-11-16 14:00 | disposition short-term general hospital (02) | DRG 194 ==
LOC: ER 09:02 → EH 13:34 → 5 15:09
PROVIDERS: ADMIT Family Medicine; ATTEND Family Medicine
PROC: 0BJ08ZZ Inspection of Tracheobronchial Tree, Via Natural or Artificial Opening Endoscopic (ICD-10-PCS; 2017-11-13)
PROC: 3E1F88Z Irrigation of Respiratory Tract using Irrigating Substance, Via Natural or Artificial Opening Endoscopic (ICD-10-PCS; principal; 2017-11-13 08:30)
DX: J18.9 Pneumonia, unspecified organism (principal); Z68.43 Body mass index [BMI] 50.0-59.9, adult; J98.09 Other diseases of bronchus, not elsewhere classified; R19.7 Diarrhea, unspecified; E66.01 Morbid (severe) obesity due to excess calories; Z71.3 Dietary counseling and surveillance; Z75.1 Person awaiting admission to adequate facility elsewhere
CPT/HCPCS: 31624; 36415; 71046; 71260; 80048; 80053; 81001; 85025; 85610; 85730; 86480; 86701; 87015; 87040; 87045; 87070; 87101; 87116; 87205; 87206; 87491; 87493; 87591; 88104; 88305; 88312; 89055; 94667; 94668; 94799; 96365; 96367; 99285; J0171; J0692; J1650; J2250; J2310; J2405; J2543; J3010; J3370; J3490; J7060

== ENCOUNTER 2018-01-19 14:32 | Emergency (ER) | payer MEDICAID ==
[2018-01-19] MEDS ORDERED: IPRATROPIUM/ALBUTEROL 0.5-2.5 MG/3 ML AMPUL NEB ONE (15:03)
--- NOTE | 2018-01-19 15:03 | ER Document Report ---
ED Medical Screen (RME) - General Chief Complaint: Shortness Of Breath Stated Complaint: BREATHING DIFFICULTY Time Seen by Provider: 01/19/18 14:55 Mode of Arrival: Ambulatory Information source: Patient Notes: 27-year-old female with no significant past medical history presents with complaint of cough, wheezing, chest tightness and shortness of breath that occurred 2 days prior to arrival. Patient describes the cough as intermittent, productive. She has had associated wheezing and subjective fever. 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 Shortly after that she developed pneumonia. She is concerned that she may have pneumonia again. I have greeted and performed a rapid initial assessment of this patient. A comprehensive ED assessment and evaluation of the patient including analysis of labs and imaging ( if obtained) and completion of medical decision making will be conducted by an additional ED provider. PHYSICAL EXAMINATION: GENERAL: Well-appearing, well-nourished and in no acute distress. HEAD: Atraumatic, normocephalic. EYES: Pupils equal round extraocular movements intact, conjunctiva are normal. ENT: Nares patent NECK: Normal range of motion LUNGS: No respiratory distress, mild expiratory wheezing Musculoskeletal: Normal range of motion NEUROLOGICAL: Normal speech, normal gait. PSYCH: Normal mood, normal affect. SKIN: Warm, Dry, normal turgor, no rashes or lesions noted. TRAVEL OUTSIDE OF THE [place] IN LAST 30 DAYS: No - Related Data Allergies/Adverse Reactions: No Known Allergies Allergy (Verified 01/19/18 15:00) Past Medical History - Social History Chew tobacco use (# tins/day): No Frequency of alcohol use: None Drug Abuse: None Family history: None Pulmonary Medical History: Reports: Hx Asthma, Hx Bronchitis, Hx Pneumonia Neurological Medical History: Denies: Hx Seizures Renal/ Medical History: Denies: Hx Peritoneal Dialysis Past Surgical History: Reports: Hx Section. Denies: Hx Hysterectomy - Immunizations Immunizations up to date: Yes Hx Diphtheria, Pertussis, Tetanus Vaccination: Yes History of Influenza Vaccine for 04/2017 - 09/2017 Season: No Physical Exam - Vital signs Vitals: Temp Pulse Resp BP Pulse Ox 98.3 F 84 16 147/88 H 97 01/19/18 14:39 01/19/18 14:39 01/19/18 14:39 01/19/18 14:39 01/19/18 14:39 Course - Vital Signs Vital signs: Temp Pulse Resp BP Pulse Ox 98.3 F 84 16 147/88 H 97 01/19/18 14:39 01/19/18 14:39 01/19/18 14:39 01/19/18 14:39 01/19/18 14:39
--- NOTE | 2018-01-19 16:04 | RADIOLOGY REPORT (SQ) ---
EXAM DESCRIPTION: CHEST 2 VIEWS COMPLETED DATE/TIME: 01/19/2018 3:50 pm REASON FOR STUDY: Cough, shortness of breath COMPARISON: 11/08/2017 EXAM PARAMETERS: NUMBER OF VIEWS: two views TECHNIQUE: Digital Frontal and Lateral radiographic views of the chest acquired. RADIATION DOSE: NA LIMITATIONS: none FINDINGS: LUNGS AND PLEURA: Small right pleural effusion and medial basilar subsegmental atelectasis -airspace disease. Left lung appears clear. MEDIASTINUM AND HILAR STRUCTURES: Stable. HEART AND VASCULAR STRUCTURES: Heart normal size. No evidence for failure. BONES: No acute findings. HARDWARE: None in the chest. OTHER: No other significant finding. IMPRESSION: Small right pleural effusion and medial basilar subsegmental atelectasis -airspace disea se. TECHNICAL DOCUMENTATION: JOB ID: [id number] [place]-72 2010 [employer]- All Rights Reserved Reading location - IP/workstation name: [email or web address]
[2018-01-19 16:06] LABS: ABSOLUTE BASOPHILS # (AUTO) 0.1 10^3/uL (0.0-0.2); ABSOLUTE EOSINOPHILS # (AUTO) 0.5 10^3/uL (0.0-0.6); ABSOLUTE LYMPHOCYTES (AUTO) 3.4 10^3/uL (0.5-4.7); ABSOLUTE MONOCYTES (AUTO) 0.8 10^3/uL (0.1-1.4); ABSOLUTE NEUT (AUTO) 6.1 10^3/uL (1.7-8.2); BASOPHILS % (AUTO) 0.5 % (0-2); EOSINOPHILS % (AUTO) 4.8 % (0-6); HEMATOCRIT 40.2 % (36.0-47.0); HEMOGLOBIN 13.6 g/dL (12.0-15.5); MEAN CORPUSCULAR HEMOGLOBIN 27.6 pg (27.0-33.4); MEAN CORPUSCULAR HGB CONC 33.7 g/dL (32.0-36.0); MEAN CORPUSCULAR VOLUME 82 fl (80-97); MONOCYTES % (AUTO) 7.7 % (3-13); PLATELET COUNT 337 10^3/uL (150-450); RED BLOOD COUNT 4.91 10^6/uL (3.72-5.28); RED CELL DISTRIBUTION WIDTH 15.5 % (11.5-14.0); TOTAL CELLS COUNTED % (AUTO) 100 %; WHITE BLOOD COUNT 10.9 10^3/uL (4.0-10.5)
[2018-01-19 16:13] LABS: APPEARANCE,URINE SLIGHTLY-CLOUDY; BILIRUBIN,URINE NEGATIVE (NEGATIVE); COLOR,URINE STRAW; GLUCOSE, URINE NEGATIVE (NEGATIVE); KETONES,URINE NEGATIVE (NEGATIVE); LEUKOCYTE ESTERASE,URINE TRACE (NEGATIVE); NITRITE,URINE NEGATIVE (NEGATIVE); PROTEIN,URINE NEGATIVE (NEGATIVE); URINE SPECIFIC GRAVITY 1.012; UROBILINOGEN,URINE NEGATIVE mg/dL (<2.0)
[2018-01-19 16:39] LABS: ALANINE AMINOTRANSFERASE 20 U/L (9-52); ALKALINE PHOSPHATASE 100 U/L (38-126); ANION GAP 12 (5-19); ASPARTATE AMINO TRANSFERASE 18 U/L (14-36); BILIRUBIN,DIRECT 0.2 mg/dL (0.0-0.4); BILIRUBIN,TOTAL 0.2 mg/dL (0.2-1.3); BLOOD UREA NITROGEN 11 mg/dL (7-20); CALCIUM 9.5 mg/dL (8.4-10.2); CARBON DIOXIDE 23 mmol/L (22-30); CHLORIDE 110 mmol/L (98-107); GLUCOSE 129 mg/dL (75-110); POTASSIUM 4.4 mmol/L (3.6-5.0); SODIUM 144.6 mmol/L (137-145); TOTAL PROTEIN 7.6 g/dL (6.3-8.2)
[2018-01-19] MEDS ORDERED: DOXYCYCLINE HYCLATE 100 MG TABLET PO ONE (17:44)
[2018-01-19] MEDS ORDERED: PREDNISONE 20 MG TABLET PO ONE (17:44)
[2018-01-19] MEDS ORDERED: ALBUTEROL SULFATE 0.083% NEB 2.5 MG/3 ML AMPUL NEB ONE ×2 (17:44→18:27)
[2018-01-19] MEDS ORDERED: CEFTRIAXONE INJ 1000 MG VIAL IM ONE (17:45)
[2018-01-19] MEDS ORDERED: LIDOCAINE 1% INJ-PF (10 MG/ML) 30 ML SDV INJ ONE (17:45)
--- NOTE | 2018-01-19 18:25 | ER Document Report ---
HPI - HPI Patient complains to provider of: Cough, wheezing Onset: Other - 2 days Onset/Duration: Persistent Quality of pain: Other - Tightness Pain Level: 3 Context: Patient presents complaining of chest tightness with wheezing for the past 2 days. Patient does complain of some nausea with low-grade fever. Patient has a history of pneumonia in the past and suspects the same. Patient does have a history of asthma as well and has been using her inhaler at home. Associated Symptoms: Chest pain - Chest tightness, Nonproductive cough, Fever - Grade, Nausea. denies: Productive cough, Headache, Vomiting, Shortness of breath Exacerbated by: Denies Relieved by: Denies Similar symptoms previously: Yes Recently seen / treated by doctor: No - ROS ROS below otherwise negative: Yes Systems Reviewed and Negative: Yes All other systems reviewed and negative - CONSTITUTIONAL Constitutional: REPORTS: Fever - EENT EENT: DENIES: Sore Throat - RESPIRATORY Respiratory: REPORTS: Coughing. DENIES: Trouble Breathing - GASTROINTESTINAL Gastrointestinal: REPORTS: Nausea. DENIES: Abdominal Pain, Patient vomiting, Diarrhea - REPRODUCTIVE Reproductive: DENIES: : - MUSCULOSKELETAL Musculoskeletal: DENIES: Back Pain - DERM Skin Color: Normal, [place] Past Medical History - General Information source: Patient - Social History Smoking Status: Never Smoker Chew tobacco use (# tins/day): No Frequency of alcohol use: None Drug Abuse: None Occupation: [employer] Lives with: Family Family History: Other Patient has suicidal ideation: No Patient has homicidal ideation: No Pulmonary Medical History: Reports: Hx Asthma, Hx Bronchitis, Hx Pneumonia Neurological Medical History: Denies: Hx Seizures Renal/ Medical History: Denies: Hx Peritoneal Dialysis Past Surgical History: Reports: Hx Section, Other - Right lung lobectomy for benign tumor. Denies: Hx Hysterectomy - Immunizations Immunizations up to date: Yes Hx Diphtheria, Pertussis, Tetanus Vaccination: Yes Vertical Provider Document - CONSTITUTIONAL Agree With Documented VS: Yes Exam Limitations: No Limitations General Appearance: WD/WN, No Apparent Distress - INFECTION CONTROL TRAVEL OUTSIDE OF THE [place] IN LAST 30 DAYS: No - HEENT HEENT: Atraumatic, Normal ENT Exam, Normocephalic - NECK Neck: Normal Inspection, Supple. negative: Lymphadenopathy-Left, Lymphadenopathy-Right - RESPIRATORY Respiratory: No Respiratory Distress, Chest Non-Tender, Wheezing. negative: Rales - CARDIOVASCULAR Cardiovascular: Regular Rate, Regular Rhythm, No Murmur - BACK Back: Normal Inspection - MUSCULOSKELETAL/EXTREMETIES Musculoskeletal/Extremeties: JOSE HERNANDEZ - NEURO Level of Consciousness: Awake, Alert, Appropriate Motor/Sensory: No Motor Deficit - DERM Integumentary: Warm, Dry, No Rash Course - Re-evaluation Re-evalutation: 01/19/18 18:22 Patient's respirations even and unlabored. Vital signs otherwise stable. No concern for sepsis. Patient does have wheezing with a history of asthma, will plan to cover for pneumonia given patient's history, mild leukocytosis and subjective fevers. She encouraged to return for any new or worsening symptoms. Patient advised to follow-up with her primary doctor for recheck. Patient verbalized understanding and is agreeable with this plan of care. - Vital Signs Vital signs: Temp Pulse Resp BP Pulse Ox 98.3 F 84 16 147/88 H 97 01/19/18 14:39 01/19/18 14:39 01/19/18 14:39 01/19/18 14:39 01/19/18 14:39 - Laboratory Result Diagrams: 01/19/18 15:50 01/19/18 15:50 Laboratory results interpreted by me: 01/19/18 01/19/18 01/19/18 15:50 15:50 15:50 WBC 10.9 H RDW 15.5 H Chloride 110 H Glucose 129 H Urine Blood SMALL H Ur Leukocyte Esterase TRACE H 01/19/18 18:21 Labs- Entire Visit 01/19/18 01/19/18 01/19/18 15:50 15:50 15:50 WBC 10.9 H RBC 4.91 Hgb 13.6 Hct 40.2 MCV 82 MCH 27.6 MCHC 33.7 RDW 15.5 H Plt Count 337 Seg Neutrophils % 56.0 Lymphocytes % 31.0 Monocytes % 7.7 Eosinophils % 4.8 Basophils % 0.5 Absolute Neutrophils 6.1 Absolute Lymphocytes 3.4 Absolute Monocytes 0.8 Absolute Eosinophils 0.5 Absolute Basophils 0.1 Sodium 144.6 Potassium 4.4 Chloride 110 H Carbon Dioxide 23 Anion Gap 12 BUN 11 Creatinine 0.70 Est GFR ( Amer) > 60 Est GFR (Non-Af Amer) > 60 Glucose 129 H Calcium 9.5 Total Bilirubin 0.2 Direct Bilirubin 0.2 Neonat Total Bilirubin Not Reportable Neonat Direct Bilirubin Not Reportable Neonat Indirect Bili Not Reportable AST 18 ALT 20 Alkaline Phosphatase 100 NT-Pro-B Natriuret Pep Total Protein 7.6 Albumin 4.0 Urine Color STRAW Urine Appearance SLIGHTLY-CLOUDY Urine pH 6.0 Ur Specific Otis 1.012 Urine Protein NEGATIVE Urine Glucose (UA) NEGATIVE Urine Ketones NEGATIVE Urine Blood SMALL H Urine Nitrite NEGATIVE Urine Bilirubin NEGATIVE Urine Urobilinogen NEGATIVE Ur Leukocyte Esterase TRACE H Urine WBC (Auto) 2 Urine RBC (Auto) 1 Urine Bacteria (Auto) 1+ Squamous Epi Cells Auto 6 Urine Mucus (Auto) RARE Urine Ascorbic Acid NEGATIVE Urine HCG, Qual NEGATIVE 01/19/18 15:50 WBC RBC Hgb Hct MCV MCH MCHC RDW Plt Count Seg Neutrophils % Lymphocytes % Monocytes % Eosinophils % Basophils % Absolute Neutrophils Absolute Lymphocytes Absolute Monocytes Absolute Eosinophils Absolute Basophils Sodium Potassium Chloride Carbon Dioxide Anion Gap BUN Creatinine Est GFR ( Amer) Est GFR (Non-Af Amer) Glucose Calcium Total Bilirubin Direct Bilirubin Neonat Total Bilirubin Neonat Direct Bilirubin Neonat Indirect Bili AST ALT Alkaline Phosphatase NT-Pro-B Natriuret Pep 54 Total Protein Albumin Urine Color Urine Appearance Urine pH Ur Specific Otis Urine Protein Urine Glucose (UA) Urine Ketones Urine Blood Urine Nitrite Urine Bilirubin Urine Urobilinogen Ur Leukocyte Esterase Urine WBC (Auto) Urine RBC (Auto) Urine Bacteria (Auto) Squamous Epi Cells Auto Urine Mucus (Auto) Urine Ascorbic Acid Urine HCG, Qual - Diagnostic Test Radiology reviewed: Reports reviewed Discharge - Discharge Clinical Impression: Asthma Qualifiers: Asthma severity: unspecified severity Asthma persistence: unspecified Asthma complication type: unspecified Qualified Code(s): J45.909 - Unspecified asthma, uncomplicated Pneumonia Qualifiers: Pneumonia type: due to unspecified organism Laterality: right Lung location: lower lobe of lung Qualified Code(s): J18.1 - Lobar pneumonia, unspecified organism Condition: Stable Disposition: HOME, SELF-CARE Additional Instructions: Return immediately for any new or worsening symptoms Followup with your primary care provider, call tomorrow to make a followup appointment PNEUMONIA: Your examination indicates that you have pneumonia. This is an infection of the lung tissue, usually caused by bacteria or a virus. Symptoms include cough, fever, shaking chills, chest pain, shortness of breath, and coughing up bloody sputum. Treatment for bacterial pneumonia includes rest, antibiotics for 10 to 14 days, increasing your clear liquid intake, a cool mist humidifier at your bedside, and fever medication. Often, a repeat chest X-ray is performed in a few weeks--even if you feel better--to ascertain whether the infection has completely resolved and no underlying lung problem is present. You should call the physician if you develop persistent vomiting, high fever that does not respond to fever medication, increasing shortness of breath , confusion, or lethargy. Also, failure to improve within two to three days is an indication for re-examination. ROCEPHIN: You have been given an injection of an antibiotic called Rocephin ( ceftriaxone). Sometimes the injection must be combined with antibiotic pills. For some infections, such as an uncomplicated ear infection, Rocephin provides all the antibiotic that's needed. The antibiotic will be in your body for about two days. For serious infections, we usually repeat doses of Rocephin daily. Side effects are very unusual following a shot. Women may develop vaginal yeast infections, and babies can get yeast (thrush) in the mouth following the use of antibiotics. Contact your physician if you have symptoms with this medication. Allergy to this antibiotic can result in hives, wheezing, faintness, or itching. If symptoms of allergy occur, call the doctor at once. DOXYCYCLINE: Doxycycline (Vibramycin, Doryx) is an antibiotic of the tetracycline family. This type of drug is useful for infections of the respiratory tract and genital tract, and is sometimes used for intestinal infections. Unlike most tetracyclines, doxycycline can be taken with food. It is longer acting, and (usually) less prone to side effects than regular tetracycline. Tetracycline antibiotics can stain immature teeth and SHOULD NOT BE TAKEN BY CHILDREN, NURSING MOTHERS, OR WOMEN. Tetracyclines can make you more prone to sunburn. Abdominal cramping, nausea, and diarrhea are occasional side effects. Women may experience vaginal yeast infections. Call the doctor at once if you develop hives, itching, shortness of breath , or lightheadedness. USE OF ACETAMINOPHEN (Tylenol): Acetaminophen may be taken for pain relief or fever control. It's much safer than aspirin, offering a wider range of "safe" dosages. It is safe during . Some brand names are Tylenol, Panadol, Datril, Anacin 3, Tempra, and Liquiprin. Acetaminophen can be repeated every four hours. The following are maximum recommended dosages: WEIGHT Dose Drops Elixir Chewable( 80mg) (LBS.) drprs=droppers tsp=teaspoon >89 pounds or adults 650 mg to 900 mg Acetaminophen can be repeated every four hours. Maximum dose not to exceed 4000 mg a day. These maximum recommended dosages are slightly higher than the dosages written on the product container, but these dosages are very safe and below the toxic dosage for acetaminophen. FOLLOW-UP CARE: If you have been referred to a physician for follow-up care, call the physician s office for an appointment as you were instructed or within the next two days. If you experience worsening or a significant change in your symptoms, notify the physician immediately or return to the Emergency Department at any time for re-evaluation. Prescriptions: Albuterol Sulfate [Ventolin Hfa] 2 puff IH Q4HP PRN #17 gm PRN Reason: Benzonatate [Tessalon Perle 100 mg Capsule] 100 mg PO Q8HP PRN #20 cap PRN Reason: Doxycycline Hyclate 100 mg PO BID #28 capsule Prednisone [Deltasone 10 mg Tablet] 10 mg PO ASDIR PRN #21 tablet PRN Reason: Referrals: JONA BAINS FNP-C [Primary Care Provider] - Follow up as needed JAMEL TOLLIVER MD [COMMUNITY BASED STAFF] - Follow up as needed
[2018-01-19 18:30] VITALS: BP 138/84
--- NOTE | 2018-01-20 00:51 | EKG REPORT ---
SEVERITY:- NORMAL ECG - SINUS RHYTHM : Confirmed by: Jodie Eagle MD 20-Jan-2018 00:49:45
== END 2018-01-19 18:38 | disposition home or self-care (01) ==
LOC: ER 14:32
DX: J18.1 Lobar pneumonia, unspecified organism (principal); J45.909 Unspecified asthma, uncomplicated; R05 Cough; R11.0 Nausea; R50.9 Fever, unspecified; R07.9 Chest pain, unspecified
CPT/HCPCS: 93005; 94640 ×2; 99285; 96372; 36415; 87086; 85025; 81025; 80053; 81001; 83880; 71046; 93010; J3490 ×2; J7512; J0696; J7620

== ENCOUNTER 2018-04-05 13:26 | Emergency (ER) | payer MEDICAID ==
[2018-04-05] MEDS ORDERED: IPRATROPIUM/ALBUTEROL 0.5-2.5 MG/3 ML AMPUL NEB ONE (14:18)
--- NOTE | 2018-04-05 14:19 | ER Document Report ---
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 On examination-right upper cervical mass with inspiratory and expiratory stridors or wheezing. TRAVEL OUTSIDE OF THE [place] IN LAST 30 DAYS: No - Related Data Allergies/Adverse Reactions: No Known Allergies Allergy (Verified 04/05/18 13:34) Past Medical History - Social History Chew tobacco use (# tins/day): No Frequency of alcohol use: None Drug Abuse: None Family history: None Pulmonary Medical History: Reports: Hx Asthma, Hx Bronchitis, Hx Pneumonia Neurological Medical History: Denies: Hx Seizures Renal/ Medical History: Denies: Hx Peritoneal Dialysis Past Surgical History: Reports: Hx Section, Other - Right lung lobectomy for benign tumor. Denies: Hx Hysterectomy - Immunizations Immunizations up to date: Yes Hx Diphtheria, Pertussis, Tetanus Vaccination: Yes History of Influenza Vaccine for 04/2017 - 09/2017 Season: No Physical Exam - Vital signs Vitals: Temp Pulse Resp BP Pulse Ox 98.7 F 83 16 135/84 H 96 04/05/18 13:44 04/05/18 13:44 04/05/18 13:44 04/05/18 13:44 04/05/18 13:44 Course - Vital Signs Vital signs: Temp Pulse Resp BP Pulse Ox 98.7 F 83 16 135/84 H 96 04/05/18 13:44 04/05/18 13:44 04/05/18 13:44 04/05/18 13:44 04/05/18 13:44 Doctor's Discharge - Discharge Referrals: JONA BAINS [facility] [Primary Care Provider] - Follow up as needed
[2018-04-05 15:14] LABS: ABSOLUTE BASOPHILS # (AUTO) 0.1 10^3/uL (0.0-0.2); ABSOLUTE EOSINOPHILS # (AUTO) 0.7 10^3/uL (0.0-0.6); ABSOLUTE LYMPHOCYTES (AUTO) 4.1 10^3/uL (0.5-4.7); ABSOLUTE MONOCYTES (AUTO) 0.8 10^3/uL (0.1-1.4); ABSOLUTE NEUT (AUTO) 8.6 10^3/uL (1.7-8.2); BASOPHILS % (AUTO) 0.6 % (0-2); EOSINOPHILS % (AUTO) 4.7 % (0-6); HEMATOCRIT 42.1 % (36.0-47.0); MEAN CORPUSCULAR HEMOGLOBIN 27.7 pg (27.0-33.4); MEAN CORPUSCULAR HGB CONC 33.2 g/dL (32.0-36.0); MEAN CORPUSCULAR VOLUME 84 fl (80-97); MONOCYTES % (AUTO) 5.7 % (3-13); PLATELET COUNT 296 10^3/uL (150-450); RED BLOOD COUNT 5.05 10^6/uL (3.72-5.28); RED CELL DISTRIBUTION WIDTH 15.3 % (11.5-14.0); TOTAL CELLS COUNTED % (AUTO) 100 %; WHITE BLOOD COUNT 14.3 10^3/uL (4.0-10.5)
[2018-04-05 15:33] LABS: ALANINE AMINOTRANSFERASE 34 U/L (9-52); ALBUMIN 4.2 g/dL (3.5-5.0); ALKALINE PHOSPHATASE 118 U/L (38-126); ANION GAP 8 (5-19); ASPARTATE AMINO TRANSFERASE 32 U/L (14-36); BILIRUBIN,DIRECT 0.4 mg/dL (0.0-0.4); BILIRUBIN,TOTAL 0.4 mg/dL (0.2-1.3); BLOOD UREA NITROGEN 14 mg/dL (7-20); CALCIUM 9.4 mg/dL (8.4-10.2); CARBON DIOXIDE 26 mmol/L (22-30); CHLORIDE 107 mmol/L (98-107); GLUCOSE 122 mg/dL (75-110); POTASSIUM 4.2 mmol/L (3.6-5.0); SODIUM 141.3 mmol/L (137-145); TOTAL PROTEIN 7.7 g/dL (6.3-8.2)
--- NOTE | 2018-04-05 15:40 | RADIOLOGY REPORT (SQ) ---
EXAM DESCRIPTION: CT CHEST WITH; CT SOFT TISSUE NECK WITH COMPLETED DATE/TIME: 04/05/2018 3:16 pm REASON FOR STUDY: Neck mass, stridor previous lung mass, COMPARISON: 11/08/2017 TECHNIQUE: CT scan of the neck and chest performed using helical scanning technique with dynamic int ravenous contrast injection. Images reviewed with lung, soft tissue and bone windows. Reconstructed coronal and sagittal MPR and MIP images reviewed. All images stored on PACS. All CT scanners at this facility use dose modulation, iterative reconstruction, and/or weight based d osing when appropriate to reduce radiation dose to as low as reasonably achievable (ALARA). [facility]: Dose Right [facility]: CareDose [facility]: Dose Right [facility]: Teradose 4D [facility]: [employer] CONTRAST TYPE AND DOSE: contrast/concentration: Isovue 350.00 mg/ml; Total Contrast Delivered: 80.0 ml; Total Saline Delivered: 55.0 ml RENAL FUNCTION: None required. The patient is less than 50 years old. RADIATION DOSE: CT Rad equipment meets quality standard of care and radiation dose reduction techniq ues were employed. CTDIvol: 19.1 - 30.0 mGy. DLP: 1603 mGy-cm. . LIMITATIONS: None. FINDINGS: LUNGS AND PLEURA: Mild residual right infrahilar parenchymal scarring -calcifications. Ne w platelike subsegmental atelectasis is present in the inferior lingula. No patchy consolidation or pleural effusion. Mild subpleural scarring in the right lower lobe. HILAR AND MEDIASTINAL STRUCTURES: No identified masses or abnormal nodes. HEART AND VASCULAR STRUCTURES: No aneurysm or dissection. Similar enlarged main pulmonary artery. N o central pulmonary emboli. No pericardial effusion. HARDWARE: None in the chest. UPPER ABDOMEN: No significant findings. Limited exam. THYROID AND OTHER SOFT TISSUES: No masses. No adenopathy. BONES: No significant finding. NECK: Mild enlargement of the palatine tonsils, no focal mass or inflammatory changes. Mild maxillar y sinus mucosal thickening. Remainder of the neck soft tissues are within normal limits. IMPRESSION: Mild enlargement of the palatine tonsils, no focal mass or inflammatory changes. Mild m axillary sinus mucosal thickening. Mild residual right infrahilar parenchymal scarring -calcifications. New platelike subsegmental atel ectasis is present in the inferior lingula. No patchy consolidation or pleural effusion. Mild subpl eural scarring in the right lower lobe. TECHNICAL DOCUMENTATION: JOB ID: [id number] [place]-72 Quality ID # [id number]: Final reports with documentation of one or more dose reduction techniques (e.g., Au tomated exposure control, adjustment of the mA and/or kV according to patient size, use of iterative reconstruction technique) 2010 [employer]- All Rights Reserved Reading location - IP/workstation name: [email or web address]
--- NOTE | 2018-04-05 15:40 | RADIOLOGY REPORT (SQ) ---
EXAM DESCRIPTION: CT CHEST WITH; CT SOFT TISSUE NECK WITH COMPLETED DATE/TIME: 04/05/2018 3:16 pm REASON FOR STUDY: Neck mass, stridor previous lung mass, COMPARISON: 11/08/2017 TECHNIQUE: CT scan of the neck and chest performed using helical scanning technique with dynamic int ravenous contrast injection. Images reviewed with lung, soft tissue and bone windows. Reconstructed coronal and sagittal MPR and MIP images reviewed. All images stored on PACS. All CT scanners at this facility use dose modulation, iterative reconstruction, and/or weight based d osing when appropriate to reduce radiation dose to as low as reasonably achievable (ALARA). [facility]: Dose Right [facility]: CareDose [facility]: Dose Right [facility]: Teradose 4D [facility]: [employer] CONTRAST TYPE AND DOSE: contrast/concentration: Isovue 350.00 mg/ml; Total Contrast Delivered: 80.0 ml; Total Saline Delivered: 55.0 ml RENAL FUNCTION: None required. The patient is less than 50 years old. RADIATION DOSE: CT Rad equipment meets quality standard of care and radiation dose reduction techniq ues were employed. CTDIvol: 19.1 - 30.0 mGy. DLP: 1603 mGy-cm. . LIMITATIONS: None. FINDINGS: LUNGS AND PLEURA: Mild residual right infrahilar parenchymal scarring -calcifications. Ne w platelike subsegmental atelectasis is present in the inferior lingula. No patchy consolidation or pleural effusion. Mild subpleural scarring in the right lower lobe. HILAR AND MEDIASTINAL STRUCTURES: No identified masses or abnormal nodes. HEART AND VASCULAR STRUCTURES: No aneurysm or dissection. Similar enlarged main pulmonary artery. N o central pulmonary emboli. No pericardial effusion. HARDWARE: None in the chest. UPPER ABDOMEN: No significant findings. Limited exam. THYROID AND OTHER SOFT TISSUES: No masses. No adenopathy. BONES: No significant finding. NECK: Mild enlargement of the palatine tonsils, no focal mass or inflammatory changes. Mild maxillar y sinus mucosal thickening. Remainder of the neck soft tissues are within normal limits. IMPRESSION: Mild enlargement of the palatine tonsils, no focal mass or inflammatory changes. Mild m axillary sinus mucosal thickening. Mild residual right infrahilar parenchymal scarring -calcifications. New platelike subsegmental atel ectasis is present in the inferior lingula. No patchy consolidation or pleural effusion. Mild subpl eural scarring in the right lower lobe. TECHNICAL DOCUMENTATION: JOB ID: [id number] Quality ID # [id number]: Final reports with documentation of one or more dose reduction techniques (e.g., Au tomated exposure control, adjustment of the mA and/or kV according to patient size, use of iterative reconstruction technique) 2010 [employer]- All Rights Reserved Reading location - IP/workstation name: [email or web address]
[2018-04-05 15:51] LABS: FREE T3 3.91 pg/mL (2.77-5.27); FREE T4 (FREE THYROXINE) 1.01 ng/dL (0.78-2.19)
[2018-04-05 16:05] LABS: THYROID STIMULATING HORMONE 1.56 uIU/mL (0.47-4.68)
[2018-04-05] MEDS ORDERED: LEVOFLOXACIN 750 MG/D5W RTU 750 MG/150 ML RTUPB IV ONE (16:15)
--- NOTE | 2018-04-05 18:32 | ER Document Report ---
ED General - General Chief Complaint: Asthma Exacerbation Stated Complaint: EAR ALLEN, SHORTNESS OF BREATH Time Seen by Provider: 04/05/18 14:08 Notes: Patient is being seen today for cough and congestion as well as right ear pain and bilateral sore throat. 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 She has been diagnosed on these occasions as having pneumonia. She feels that Levaquin works the best to relieve her symptoms and congestion and mucus flow. Patient went to see her primary care provider on who prescribed her amoxicillin and some drops for her right ear. Patient says she is not getting any relief of her symptoms or feeling any better taking those medications. TRAVEL OUTSIDE OF THE [place] IN LAST 30 DAYS: No - Related Data Allergies/Adverse Reactions: No Known Allergies Allergy (Verified 04/05/18 13:34) Past Medical History - Social History Smoking Status: Never Smoker Chew tobacco use (# tins/day): No Frequency of alcohol use: None Drug Abuse: None Family History: Reviewed & Not Pertinent, Other Patient has suicidal ideation: No Patient has homicidal ideation: No Pulmonary Medical History: Reports: Hx Asthma, Hx Bronchitis, Hx Pneumonia Past Surgical History: Reports: Hx Section, Other - Right lung lobectomy for benign tumor - Immunizations Immunizations up to date: Yes Hx Diphtheria, Pertussis, Tetanus Vaccination: Yes Review of Systems - Review of Systems Notes: REVIEW OF SYSTEMS: CONSTITUTIONAL : Denies fever. EENT: Sore throat and right ear pain, but otherwise denies eye, nose or mouth pain or other symptoms. CARDIOVASCULAR: Denies chest pain. RESPIRATORY: See HPI.. GASTROINTESTINAL: Denies abdominal pain or nausea, vomiting, or diarrhea. GENITOURINARY: Denies difficulty or painful urinating, urinary frequency, blood in urine. MUSCULOSKELETAL: Denies back or neck pain. Denies joint pain or swelling. SKIN: Denies rash or skin lesions. NEUROLOGICAL: Denies LOC or altered mental status. Denies headache. Denies sensory loss or motor deficits. ALL OTHER SYSTEMS REVIEWED AND NEGATIVE. Physical Exam - Vital signs Vitals: Temp Pulse Resp BP Pulse Ox 98.7 F 83 16 135/84 H 96 04/05/18 13:44 04/05/18 13:44 04/05/18 13:44 04/05/18 13:44 04/05/18 13:44 Interpretation: Normal Notes: PHYSICAL EXAMINATION: GENERAL: Well-appearing, in no acute distress. 160 kg. HEAD: Atraumatic, normocephalic. EYES: Pupils equal round and reactive to light, extraocular movements intact. ENT: The portion of the patient's right TM that I can visualized appears normal to me. Posterior oropharynx and adjacent soft tissues are dark erythematous, but without exudates. No impediment to airflow or swallowing. Denies hoarse voice. NECK: Normal range of motion, supple. Mild tenderness in the anterior submandibular area, but few nodes palpable in the no airway impingement. LUNGS: Breath sounds clear and equal bilaterally. No significant wheezes heard. HEART: Regular rate and rhythm without murmurs. ABDOMEN: Soft, nontender. No guarding or rebound. No masses. BACK: No tenderness throughout entire back. NEUROLOGICAL: Normal speech, normal gait. Normal sensory, motor, and reflex exams. Awake, alert, and oriented x3. Cranial nerves normal. PSYCH: Normal mood, normal affect. SKIN: Warm, dry, no rashes. Course - Re-evaluation Re-evalutation: 04/05/18 18:47 Patient was given 750 mg of Levaquin IV and then discharged with a prescription for 500 mg daily for a week. - Vital Signs Vital signs: Temp Pulse Resp BP Pulse Ox 98.7 F 83 18 129/81 H 97 04/05/18 13:44 04/05/18 13:44 04/05/18 18:01 04/05/18 18:00 04/05/18 18:01 - Laboratory Result Diagrams: 04/05/18 15:00 04/05/18 15:00 Laboratory results interpreted by me: 04/05/18 04/05/18 15:00 15:00 WBC 14.3 H RDW 15.3 H Absolute Neutrophils 8.6 H Absolute Eosinophils 0.7 H Glucose 122 H - Diagnostic Test Radiology reviewed: Image reviewed, Reports reviewed - CT scans of the neck and chest did not reveal any acute or significant enlargement of structures or any acute infections or pneumonias. She has several areas of mild changes but nothing that is described as life-threatening. Discharge - Discharge Clinical Impression: Upper respiratory tract infection, Productive cough Condition: Stable Disposition: HOME, SELF-CARE Additional Instructions: UPPER RESPIRATORY ILLNESS: You have a viral infection of the respiratory passages -- a "cold." This common infection causes nasal congestion, drainage, and often sore throat and cough. It is highly contagious. The disease usually lasts about 10 to 14 days. There is no "cure" for the viral infection -- it must run its course. If there is a complication, such as bacterial infection in the nose, sinuses, middle ear, or bronchial tubes, antibiotics may be required. The antibiotics won't affect the virus. Drink plenty of fluids. A humidifier may help. An expectorant medication or decongestant may make you more comfortable. Use acetaminophen or ibuprofen for fever or aches. See the doctor if fever persists over two days, if there is any significant worsening of your symptoms, or if you simply fail to improve as expected. Levofloxacain You have been given an antibacterial agent, levofloxacin (Levaquin). This medicine is not related to the penicillins, sulfas, cephalosporins, or tetracyclines. It is often given to patients who are allergic to these drugs. It has been chosen for you either because other drugs are not appropriate, or because of the nature of your problem. Levaquin should not be taken with antacids, as these can decrease its effectiveness. It can be taken without regard to meals. LEVAQUIN SHOULD NOT BE TAKEN BY CHILDREN, NURSING WOMEN, OR WOMEN. Although Levaquin is usually well-tolerated, common side effects can include nausea and diarrhea. Contact your doctor if you experience any unusual symptoms while on this medication, such as joint pain or swelling, shortness of breath, wheezing, faintness, or hives. Use your home inhaler. INHALED BRONCHODILATORS: You have received a treatment of and/or prescription for an inhaled bronchodilator -- a medication which stimulates the airways in the lung to dilate. This improves the flow of air in asthma, bronchitis, and emphysema. These medicines have some similarity to adrenaline, and can cause similar side effects: shakiness, racing heart, and a sense of nervousness. These side effects decrease with time. Contact your doctor if these side effects are severe. Do not over-use the medicine. Too-frequent use of the inhaler may make it ineffective. Call your doctor if the inhaler is not controlling your symptoms at the prescribed doses. FOLLOW-UP CARE: If you have been referred to a physician for follow-up care, call the physician s office for an appointment as you were instructed or within the next two days. If you experience worsening or a significant change in your symptoms, notify the physician immediately or return to the Emergency Department at any time for re-evaluation. Prescriptions: Levofloxacin [Levaquin 500 mg Tablet] 500 mg PO DAILY #7 tablet Referrals: JONA BAINS, [employer]AR TECHNICIAN-C [Primary Care Provider] - Follow up as needed
[2018-04-05 18:36] VITALS: BP 129/81
== END 2018-04-05 18:51 | disposition home or self-care (01) ==
LOC: ER 13:26
DX: J06.9 Acute upper respiratory infection, unspecified (principal); R05 Cough; H92.01 Otalgia, right ear; J02.9 Acute pharyngitis, unspecified; J45.909 Unspecified asthma, uncomplicated; Z90.2 Acquired absence of lung [part of]; Z87.01 Personal history of pneumonia (recurrent)
CPT/HCPCS: 94640; 99285; 96365; 96366; 36415; 84439; 84443; 85025; 80053; 84481; 70491; 71260; J1956; J7620

== ENCOUNTER 2018-07-18 16:30 | Emergency (ER) | payer MEDICAID ==
--- NOTE | 2018-07-18 18:11 | RADIOLOGY REPORT (SQ) ---
EXAM DESCRIPTION: CHEST 2 VIEWS COMPLETED DATE/TIME: 07/18/2018 6:03 pm REASON FOR STUDY: cough COMPARISON: 01/19/2018 EXAM PARAMETERS: NUMBER OF VIEWS: two views TECHNIQUE: Digital Frontal and Lateral radiographic views of the chest acquired. RADIATION DOSE: NA LIMITATIONS: none FINDINGS: LUNGS AND PLEURA: Extensive consolidation in the superior segment of the right lower lobe. Left lung is clear. MEDIASTINUM AND HILAR STRUCTURES: No masses or contour abnormalities. HEART AND VASCULAR STRUCTURES: Heart normal size. No evidence for failure. BONES: No acute findings. HARDWARE: None in the chest. OTHER: No other significant finding. IMPRESSION: Extensive consolidations superior segment right lower lobe consistent with pneumonia. TECHNICAL DOCUMENTATION: JOB ID: [id number] [employer]- All Rights Reserved Reading location - IP/workstation name: [email or web address]
[2018-07-18 18:12] VITALS: BP 143/98
--- NOTE | 2018-07-18 18:13 | ER Document Report ---
ED General - General Chief Complaint: Cough Stated Complaint: FLU SYMPTOMS Time Seen by Provider: 07/18/18 17:36 TRAVEL OUTSIDE OF THE [place] IN LAST 30 DAYS: No - HPI Notes: Patient is a 28-year-old female that presents to the emergency department for chief complaint of cough. Patient has history of right lower lobectomy with tumor removal. The tumor was negative. Patient has had frequent pneumonias since then. She reports increased cough with thick sputum production over the last week. She reports intermittent fevers but has not had a fever for the last 24 hours. Patient has been trying albuterol at home 2 puffs twice a day and Mucinex with no relief. She feels very wheezy. She is denying any chest pain, nausea, vomiting, and abdominal pain Past Medical History: Asthma Past Surgical History: right lower lobectomy Social History: Denies drugs alcohol and tobacco Family History: Reviewed and noncontributory for presenting illness Allergies: Reviewed, see documented allergy list. REVIEW OF SYSTEMS: CONSTITUTIONAL : fever No chills No diaphoresis No recent illness EENT: No vision changes congestion No sore throat CARDIOVASCULAR: No chest pain No palpitations RESPIRATORY: shortness of breath cough No difficulty breathing GASTROINTESTINAL: No abdominal pain No nausea No vomiting No diarrhea GENITOURINARY: No dysuria No hematuria No difficulty urinating MUSCULOSKELETAL: No back pain No leg pain No arm pain SKIN: No rashes No lesions LYMPHATIC: No swollen, enlarged glands. NEUROLOGICAL: No lightheadedness No headache No weakness No paresthesias PSYCHIATRIC: No anxiety No depression PHYSICAL EXAMINATION: Vital signs reviewed, nursing noted reviewed. GENERAL: Well-appearing, well-nourished and in no acute distress. HEAD: Atraumatic, normocephalic. EYES: Eyes appear normal, extraocular movements intact, sclera anicteric, conjunctiva are normal. ENT: nares patent, oropharynx clear without exudates. Moist mucous membranes. NECK: Normal range of motion, supple without lymphadenopathy LUNGS: Breath sounds wheezing to auscultation bilaterally and equal. No accessory muscle use HEART: Regular rate and rhythm without murmurs ABDOMEN: Soft, nontender, normoactive bowel sounds. No rebound, guarding, or rigidity. No masses appreciated. EXTREMITIES: Nontender, good range of motion, no pitting or edema. NEUROLOGICAL: No focal neurological deficits. Moves all extremities spontaneously Motor and sensory grossly intact on exam. PSYCH: Normal mood, normal affect. SKIN: Warm, Dry, normal turgor, no rashes or lesions noted on exposed skin - Related Data Allergies/Adverse Reactions: No Known Allergies Allergy (Verified 04/05/18 13:34) Past Medical History - Social History Smoking Status: Never Smoker Chew tobacco use (# tins/day): No Frequency of alcohol use: None Drug Abuse: None Family History: Reviewed & Not Pertinent, Other Patient has suicidal ideation: No Patient has homicidal ideation: No Pulmonary Medical History: Reports: Hx Asthma, Hx Bronchitis, Hx Pneumonia Neurological Medical History: Denies: Hx Seizures Renal/ Medical History: Denies: Hx Peritoneal Dialysis Past Surgical History: Reports: Hx Section, Other - Right lung lobectomy for benign tumor. Denies: Hx Hysterectomy - Immunizations Immunizations up to date: Yes Hx Diphtheria, Pertussis, Tetanus Vaccination: Yes Physical Exam - Vital signs Vitals: Temp Pulse Resp BP Pulse Ox 98.7 F 95 18 152/87 H 98 07/18/18 16:38 07/18/18 16:38 07/18/18 16:38 07/18/18 16:38 07/18/18 16:38 Course - Re-evaluation Re-evalutation: 07/18/18 18:10 Vitals reviewed. Nursing notes reviewed. Patient is well-appearing and in no respiratory distress. She has increased mucus production a history of asthma. Patient was recommended to use her albuterol inhaler 2 puffs every 4 hours instead of twice daily. She will continue using Mucinex. She will be started on azithromycin for her increased sputum. Chest x-ray reviewed and shows no focal consolidation. She will return for new or worsening symptoms. She will follow with primary care if her symptoms are improving in the next few days. - Vital Signs Vital signs: Temp Pulse Resp BP Pulse Ox 98.7 F 95 18 152/87 H 98 07/18/18 16:38 07/18/18 16:38 07/18/18 16:38 07/18/18 16:38 07/18/18 16:38 - Diagnostic Test Radiology reviewed: Image reviewed Discharge - Discharge Clinical Impression: Cough Condition: Stable Disposition: HOME, SELF-CARE Instructions: Asthma ([facility]), Upper Respiratory Illness ([facility]) Additional Instructions: Please return to the emergency department if you have any worsening, or concern of your symptoms. Please return to the emergency department if you develop chest pain, difficulty breathing, severe abdominal pain, or ongoing vomiting. Please follow-up with your primary care physician in 2-3 days and any other recommended physicians. If prescribed, take all medications as directed. If you have any questions or concerns do not hesitate to return the emergency department for evaluation. Prescriptions: Azithromycin [Zithromax 250 mg Tablet] 250 mg PO ASDIR PRN #6 tablet PRN Reason: Prednisone [Deltasone 20 mg Tablet] 2 tab PO DAILY 5 Days tablet Referrals: JONA BAINS FNP-C [Primary Care Provider] - Follow up in 3-5 days
== END 2018-07-18 18:20 | disposition home or self-care (01) ==
LOC: ER 16:30
DX: J18.1 Lobar pneumonia, unspecified organism (principal); R05 Cough; J45.909 Unspecified asthma, uncomplicated; Z90.2 Acquired absence of lung [part of]; Z79.899 Other long term (current) drug therapy
CPT/HCPCS: 71046; 99283

== ENCOUNTER 2019-07-05 07:52 | Emergency (ER) | payer MEDICAID ==
[2019-07-05] MEDS ORDERED: ACETAMINOPHEN 325 MG TABLET PO ONE (08:47)
[2019-07-05 09:12] LABS: AMORPHOUS SEDIMENT,URINE TRACE /HPF; APPEARANCE,URINE CLOUDY; BILIRUBIN,URINE NEGATIVE (NEGATIVE); COLOR,URINE YELLOW; GLUCOSE, URINE NEGATIVE (NEGATIVE); KETONES,URINE NEGATIVE (NEGATIVE); LEUKOCYTE ESTERASE,URINE LARGE (NEGATIVE); NITRITE,URINE NEGATIVE (NEGATIVE); PROTEIN,URINE NEGATIVE (NEGATIVE); UROBILINOGEN,URINE NEGATIVE mg/dL (<2.0)
--- NOTE | 2019-07-05 09:37 | RADIOLOGY REPORT (SQ) ---
EXAM DESCRIPTION: CHEST SINGLE VIEW COMPLETED DATE/TIME: 07/05/2019 9:28 am REASON FOR STUDY: cough/shortness of breath COMPARISON: 07/18/2018 NUMBER OF VIEWS: One view. TECHNIQUE: Single frontal radiographic view of the chest acquired. LIMITATIONS: None. FINDINGS: LUNGS AND PLEURA: Minimal left basilar subsegmental atelectasis. Lungs otherwise clear. No pneumothorax. MEDIASTINUM AND HILAR STRUCTURES: No masses. Contour normal. HEART AND VASCULAR STRUCTURES: Heart normal in size. Normal vasculature. BONES: No acute findings. HARDWARE: None in the chest. OTHER: No other significant finding. IMPRESSION: Minimal left basilar volume loss. Otherwise negative single-view chest. TECHNICAL DOCUMENTATION: JOB ID: [id number] [employer]- All Rights Reserved Reading location - IP/workstation name: [email or web address]
--- NOTE | 2019-07-05 09:56 | ER Document Report ---
ED General - General Chief Complaint: Productive Cough Stated Complaint: FEVER/RIB PAIN Time Seen by Provider: 07/05/19 09:21 Primary Care Provider: MARK VICENTE MD [Primary Care Provider] - Follow up as needed Information source: Patient Notes: HPI: 29-year-old female that presents today with the onset around 1 week ago of runny nose, congestion, and coughing. Some mild right lateral rib pain. Fevers on day 1 and 2. Posttussive emesis x1. No abdominal pain or diarrhea. No shortness of breath. Past medical history as recorded including a small right lobe partial resection secondary to a mass that was found to be benign this past year. No calf pain or leg swelling. ROS: See HPI All other review of systems reviewed and otherwise negative Reviewed vital signs and nursing note as charted by RN. PHYSICAL EXAM: CONSTITUTIONAL: Alert and oriented and responds appropriately to questions. Well-appearing; well-nourished HEAD: Normocephalic; atraumatic EYES: PERRL; Conjunctivae clear, sclerae non-icteric ENT: Normal nose; copious bilateral nasal rhinorrhea; moist mucous membranes; pharynx without lesions noted NECK: Supple without meningismus; non-tender; no cervical lymphadenopathy, no masses CARD: Regular rate and rhythm; no murmurs; symmetric distal pulses RESP: Normal chest excursion without splinting or tachypnea; breath sounds clear and equal bilaterally; no wheezes, no rhonchi, no rales ABD/GI: Normal bowel sounds; elevated BMI; soft, non-tender; no palpable organomegaly or masses BACK: The back appears normal and is non-tender to palpation EXT: Normal ROM in all joints; non-tender to palpation; no edema SKIN: No acute lesions noted NEURO: CN 2-12 intact; 5/5 bilateral upper and lower extremity strength with sensation intact to light touch PSYCH: The patient's mood and manner are appropriate. Grooming and personal hygiene are appropriate. TRAVEL OUTSIDE OF THE [place] IN LAST 30 DAYS: No - Related Data Allergies/Adverse Reactions: No Known Allergies Allergy (Verified 04/05/18 13:34) Home Medications: zoloft. symbicort. wellbutrin Past Medical History - Social History Smoking Status: Never Smoker Chew tobacco use (# tins/day): No Frequency of alcohol use: None Drug Abuse: None Family History: Reviewed & Not Pertinent, Other Patient has suicidal ideation: No Patient has homicidal ideation: No Pulmonary Medical History: Reports: Hx Asthma, Hx Bronchitis, Hx Pneumonia Neurological Medical History: Denies: Hx Seizures Renal/ Medical History: Denies: Hx Peritoneal Dialysis Past Surgical History: Reports: Hx Section, Other - Right lung lobectomy for benign tumor. Denies: Hx Hysterectomy - Immunizations Immunizations up to date: Yes Hx Diphtheria, Pertussis, Tetanus Vaccination: Yes Physical Exam - Vital signs Vitals: Temp Pulse Resp BP Pulse Ox 97.9 F 81 22 H 144/94 H 98 07/05/19 08:02 07/05/19 08:02 07/05/19 08:02 07/05/19 08:02 07/05/19 08:02 Course - Re-evaluation Re-evalutation: Given the above history and physical we did order an x-ray of the chest. I have a low suspicion for PE, dissection, ACS, pneumothorax given the copious nasal congestion. However, given the recent surgical history I would like to assess for possible pneumonia and/or pneumothorax. 07/05/19 09:56 X-ray of the chest shows no obvious infiltrate. Vital signs are stable with good oxygenation. I do believe this is most likely a viral upper respiratory tract infection. I will offer symptomatic relief. - Vital Signs Vital signs: Temp Pulse Resp BP Pulse Ox 97.9 F 81 22 H 144/94 H 98 07/05/19 08:02 07/05/19 08:02 07/05/19 08:02 07/05/19 08:02 07/05/19 08:02 - Laboratory Laboratory results interpreted by me: 07/05/19 08:55 Ur Leukocyte Esterase LARGE H Discharge - Discharge Clinical Impression: Nasal congestion, Cough, Rib pain on right side Condition: Good Disposition: HOME, SELF-CARE Additional Instructions: Come back immediately with any worsening cough, shortness of breath, fevers, leg swelling, or any other acute problems. Please make sure that you take the [id number] supplements we have discussed for symptom relief. Referrals: MARK VICENTE MD [Primary Care Provider] - Follow up as needed
[2019-07-05 10:08] VITALS: BP 135/96
== END 2019-07-05 10:23 | disposition home or self-care (01) ==
LOC: ER 07:52
DX: R09.81 Nasal congestion (principal); R07.81 Pleurodynia; R05 Cough
CPT/HCPCS: 99283; 81001; 71045; J3490